=== PATIENT | female | born 1975 | race Caucasian/White ===

== ENCOUNTER 2022-09-20 14:16 | Emergency (ER) | payer OTHER, SELFPAY ==
[2022-09-20] VITALS (9 sets, daily range): BP systolic 141–174; BP diastolic 80–118; PULSE 57–72; RESP 16–18; TEMP 36.6–37; O2SAT 96–100; BMI 25.8
--- NOTE | 2022-09-20 15:31 | EXP.UTC ---
Discharge Plan Disposition Patient Disposition: Still a Patient Condition: Fair Referrals Follow up/Referrals: Taco Miranda [Primary Care Provider] - See instructions Discharge ED Provider: Roxanne Ruth [facility] [place] HPI General Stated complaint: LT side back pain radiating to hip Mode of Arrival: Ambulatory Source of Information: Patient Limitations: No Limitations Time Seen by Provider: 09/20/22 15:31 Description of Symptoms (Recalled from Triage Doc. by RN): pt c/o lower L back pain that radiates to her L flank and hip. ongoing x2d. pt denies injury and any urinary s/sx HEENT Symptoms (Recalled from RN notes): No Resp Symptoms (Recalled from RN notes): No Skin Symptoms (Recalled from RN notes): No MS Symptoms (Recalled from RN notes): Yes Functional Status (Recalled from RN notes): wnl History of Present Illness Provider Complaint: Patient states that she has been having pain in her left lower back that radiates around her side just above hip area for the last couple of days States that she has been unable to get comfortable and it has been keeping her up at night States she took a Baclofen she had left over thinking it may help but it didnt States that she hasnt done anything that she is aware of and denies injury or urinary symptoms States that pain is a 6-10 right now States that pain initially would come and go and when it was at its worse it would make her feel nauseous, States that when today it was still hurting and uncomfortable she came in to get it checked Related Data Allergies Allergy/AdvReac Type Severity Reaction Status Date / Time No Known Allergies Allergy Verified 09/20/22 14:57 Worker's Comp Is this a Worker's Comp case?: No [facility] Disclaimer: The information contained in this section may have been updated after the patient was seen, as this information can be updated by other users. Social History Smoking Status: Never smoker alcohol intake: never current occupational status: employed Travel in the last 8 weeks: None ROS Obtained: Yes All systems reviewed & no additional complaints except as documented and Yes Systems reviewed as appropriate & no additional complaints except as documented Constitutional Constitutional: Reports system reviewed and no additional complaints, except as documented, Reports as per HPI, Denies body ache, Denies chills and Denies fever(s) ENT Ears, Nose, Mouth, and Throat: Reports system reviewed and no additional complaints, except as documented and Reports as per HPI Cardiovascular Cardiovascular: Reports system reviewed and no additional complaints, except as documented and Reports as per HPI Respiratory Respiratory: Reports system reviewed and no additional complaints, except as documented and Reports as per HPI Gastrointestinal Gastrointestingal: Reports system reviewed and no additional complaints, except as documented and as per HPI; Denies abdominal pain, cramping, nausea or vomiting Genitourinary Female Genitourinary: Reports system reviewed and no additional complaints, except as documented, Reports as per HPI, Denies dysuria, Reports flank pain, Denies urinary frequency and Denies urinary urgency Musculoskeletal Musculoskeletal: Reports system reviewed and no additional complaints, except as documented, Reports as per HPI and Reports back pain (pain in left flank area that radiates around to left side) Physical Exam General General appearance: alert and in no apparent distress ENT ENT exam: Present mucous membranes moist Respiratory Respiratory exam: Present normal lung sounds bilaterally; Absent respiratory distress or wheezes Cardiovascular Cardiovascular exam: Present regular rate, normal rhythm and normal heart sounds Abdominal Exam Abdominal exam: Present soft and normal bowel sounds; Absent distention or tenderness Back Exam Back exam: Present tenderness and sciatic notch tenderness (L) (slight discomfort ) Back 1 view image: 1. reports pain in left sandra
[2022-09-20 15:38] LABS: Apearance,Urine Slightly Cloudy (Clear); Color,Urine Dark Yellow (Yellow)
[2022-09-20 15:39] LABS: Specific Gravity, Urine >= 1.030 (1.005-1.030)
[2022-09-20 15:40] LABS: Bilirubin,Urine Negative (Negative); Blood, Urine 2+ (Negative); Glucose,Urine (UA) Negative (Negative); Ketones,Urine Negative (Negative); Protein,Urine 1+ (Negative)
[2022-09-20 15:41] LABS: UTC Leukocyte Esterase,Urine Negative (Negative); UTC Nitrate,Urine Negative (Negative); Urobilinogen,Urine 0.2 EU/dl (0.2)
--- NOTE | 2022-09-20 15:51 | CT_ITS ---
PROCEDURE INFORMATION: Exam: CT Abdomen And Pelvis Without Contrast Exam date and time: 09/20/2022 5:01 PM Age: 46 years old Clinical indication: Abdominal pain; Flank; Left; Additional info: Kidney stone protocol TECHNIQUE: Imaging protocol: Computed tomography of the abdomen and pelvis without contrast. Radiation optimization: All CT scans at this facility use at least one of these dose optimization techniques: automated exposure control; mA and/or kV adjustment per patient size (includes targeted exams where dose is matched to clinical indication); or iterative reconstruction. REPORTING DATA: Count of CT and Cardiac NM exams in prior 12 months: This patient has received 0 known CTs and 0 known cardiac nuclear medicine studies in the 12 months prior to the current study. COMPARISON: No relevant prior studies available. FINDINGS: Lungs: Lung bases are clear. Liver: Fatty liver changes. Gallbladder and bile ducts: Gallbladder has been removed. No evident bile duct dilatation. Pancreas: Normal. No ductal dilation. Spleen: Normal. No splenomegaly. Adrenal glands: Normal. No mass. Kidneys and ureters: Normal. No hydronephrosis. Stomach and bowel: A few diverticula noted in the sigmoid colon. GI tract structures otherwise unremarkable with no evident wall thickening allowing for incomplete distention. Appendix: Appendix is normal. No evidence of appendicitis. Intraperitoneal space: See Reproductive finding. Vasculature: Unremarkable. No abdominal aortic aneurysm. Lymph nodes: Unremarkable. No enlarged lymph nodes. Urinary bladder: Unremarkable as visualized. Reproductive: Status post hysterectomy. Pelvic viscera otherwise unremarkable with no pelvic mass or free fluid. Bones/joints: Unremarkable. No acute fracture. Soft tissues: Unremarkable. IMPRESSION: No acute abnormalities of the abdomen and pelvis. No obstructing stones or uropathy. Nonemergent findings as above.
[2022-09-20 16:00] LABS: Microscopic, Urine URINE MICROSCOPIC (MICROSCOPIC)
[2022-09-20 16:07] LABS: Appearance,Urine CLEAR (Clear); Blood, Urine 2+ (Negative); Color,Urine YELLOW (Yellow); Glucose,Urine (UA) Negative (Negative); Ketones,Urine TRACE (Negative); Leukocyte Esterase,Urine Negative (Negative); Nitrate,Urine Negative (Negative); Protein,Urine TRACE (Negative); Specific Gravity, Urine >= 1.030 (1.005-1.030); Urobilinogen,Urine 0.2 EU/dl (0.2)
[2022-09-20 16:13] LABS: Bilirubin,Urine Negative (Negative)
[2022-09-20 16:18] LABS: Bacteria,Urine Trace /lpf; Calcium Oxalate Crystals,Urine Trace /lpf; RBC,Urine Occasional #/hpf (0-3); Squamous Epithelial Cell,Urine Occasional #/hpf (0-5); WBC,Urine Occasional #/hpf (0-3)
--- NOTE | 2022-09-20 16:31 | PC.NURSE ---
rounded on pt no complaints at this time,call light at bs
[2022-09-20 16:36] LABS: Basophils % 0.6 % (0.1-2.0); Eosinophils # 0.2 K/mm3 (0.0-0.4); Eosinophils % 2.2 % (0.1-12.0); Hematocrit 41.8 % (37.0-47.0); Hemoglobin 13.9 g/dL (12.2-16.2); Lymphocytes # 1.5 K/mm3 (0.7-4.5); Lymphocytes % 21.1 % (10-50); Mean Corpuscular HGB Conc 33.3 g/dL (31.8-35.4); Mean Corpuscular Hemoglobin 29.3 pg (27.0-31.2); Mean Platelet Volume 7.1 fl (7.4-10.4); Monocytes # 0.3 K/mm3 (0.1-1.0); Monocytes % 3.9 % (1.7-9.3); Neutrophils % 72.1 % (37.0-80.0); Platelet Count 196 K/mm3 (142-424); Red Blood Count 4.75 M/mm3 (4.20-5.40); Red Cell Distribution Width 12.9 % (11.5-17.5); White Blood Count 6.9 K/mm3 (4.8-10.8)
[2022-09-20 16:44] LABS: Chloride 99 mmol/L (98-107); HCG Qualitative, Serum Negative (Negative); Potassium 3.8 mmoL/L (3.5-5.1); Sodium 138 mmol/L (136-145)
[2022-09-20 16:47] LABS: Alanine Aminotransferase 62 U/L (12-78); Albumin Level 4.4 g/dl (3.5-5.0); Albumin/Globulin Ratio 1.5 (1.1-1.8); Alkaline Phosphatase 91 U/L (38-126); Anion Gap 16.8 mEq/L (5-15); Aspartate Amino Transferase 48 U/L (14-36); Bilirubin,Total 0.5 mg/dl (0.2-1.3); Blood Urea Nitrogen 16 mg/dl (7-17); Carbon Dioxide 26 mmol/L (22.0-30.0); Creatinine Clearance Estimated 113 mL/min (50-200); Estimated Glomerular Filt Rate 89 ml/min (>60); GFR (African American) 108 ML/MIN (>60); Glucose 94 mg/dl (74-100); Total Protein,Serum 7.4 g/dl (6.3-8.2)
--- NOTE | 2022-09-20 18:04 | HMH.EDGENADL ---
Discharge Plan Disposition Patient Disposition: Still a Patient Condition: Fair Referrals Follow up/Referrals: Taco Miranda [Primary Care Provider] - See instructions Activity Restrictions/Add. Instructions Additional Instructions/Restrictions: Return for worsening abdominal pain vomiting or any other concerns within the next 8 hours otherwise follow-up with your primary care physician within the next few days Clinical Impressions Clinical Impression: Abdominal pain Discharge ED Provider: Roxanne Ruth Adult HPI General Chief complaint: PAIN Stated complaint: LT side back pain radiating to hip Time Seen by Provider: 09/20/22 15:31 Mode of Arrival: Ambulatory Source of Information: Patient Limitations: No Limitations Description of Symptoms (Recalled from ER Triage Doc. by RN): Pt [facility] d/t left flank pain that started on night. 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 History of Present Illness HPI narrative: 38-year-old female presented with right-sided flank pain since last night came on suddenly dull, radiating to right flank. Positive for nausea no vomiting. Denies fever or urinary symptoms. She was evaluated in urgent care center here had hematuria and sent over. She says the pain has improved. Related Data Allergies Allergy/AdvReac Type Severity Reaction Status Date / Time No Known Allergies Allergy Verified 09/20/22 14:57 [facility] Disclaimer: The information contained in this section may have been updated after the patient was seen, as this information can be updated by other users. Social History (Updated 09/20/22 @ 15:55 by Roxanne Ruth APRN) Smoking Status: Unknown if ever smoked alcohol intake: never current occupational status: employed Travel in the last 8 weeks: None ROS Obtained: Yes All systems reviewed & no additional complaints except as documented Constitutional Constitutional: Denies fatigue Eyes Eyes: Denies dry eyes ENT Ears, Nose, Mouth, and Throat: Denies dry mouth Cardiovascular Cardiovascular: Denies dyspnea Respiratory Respiratory: Denies dyspnea and Denies wheezing Gastrointestinal Gastrointestingal: Denies constipation Genitourinary Female Genitourinary: Denies hot flashes Musculoskeletal Musculoskeletal: Denies arthralgias Integumentary/Breasts Skin/Breast: Denies rash Neurologic Neurologic: Denies convulsions Endocrine Endocrine: Denies fatigue Hematologic/Lymphatic Henatologic/Lymphatic: Denies easy bleeding Allergic/Immunologic Allergic/Immunologic: Denies wheezing Physical Exam General General appearance: alert and in no apparent distress Eye Eye exam: Present PERRL and EOMI ENT ENT exam: Present normal exam and normal oropharynx Neck Neck exam: Present normal inspection Chest Chest inspection: Present symmetric chest wall rise Respiratory Respiratory exam: Present normal lung sounds bilaterally; Absent respiratory distress Cardiovascular Cardiovascular exam: Present regular rate and normal rhythm Abdominal Exam Abdominal exam: Present soft and tenderness (Mild tenderness right flank); Absent distention, guarding, rebound, Luke's sign or tenderness at McBurney's Point Back Exam Back exam: Present normal inspection Neurological Exam Neurological exam: Present alert and oriented X3 Psychiatric Psychiatric exam: Present normal affect and normal mood Skin Skin exam: Present warm, dry and intact Lymphatic Lymphatic Findings: no adenopathy Medical Decision Making Medical Records Medical records reviewed: Yes I reviewed the patient's medical records. Thong Inquiry Pt receiving controlled substance: No Thong was queried for this patient: No Vital Signs: 09/20/22 14:54 09/20/22 16:00 09/20/22 16:20 Temperature 98.6 F Temperature Source Oral Pulse Rate 57 L 59 L Pulse Rate [Left] 67 Respiratory Rate 16 18 18 Blood Pressure 174/117 H 153/104 H Blood Pressure [Right Arm] 143/80 H Blo
== END 2022-09-20 18:39 | disposition home or self-care (01) ==
LOC: UTC 15:36 → ER 15:49
PROVIDERS: Emergency Medicine; Emergency Provider Nurse Practitioner; PCP Internal Medicine
DX: R10.9 Unspecified abdominal pain (principal); M54.9 Dorsalgia, unspecified; R11.0 Nausea
CPT/HCPCS: 74176; 80053; 81001; 81003; 84703; 85025; 96361; 96374; 99284; 99285

== ENCOUNTER 2023-05-03 11:38 | Emergency (ER) | payer SELFPAY ==
[2023-05-03 14:00] VITALS: BP 158/97; PULSE 56; RESP 18; TEMP 36.9; O2SAT 100; BMI 29.1
[2023-05-03 14:06] LABS: Apearance,Urine Clear (Clear); Bilirubin,Urine Negative (Negative); Blood, Urine 1+ (Negative); Color,Urine Yellow (Yellow); Glucose,Urine (UA) Negative (Negative); Ketones,Urine Negative (Negative); Protein,Urine Negative (Negative); Specific Gravity, Urine 1.015 (1.005-1.030); UTC Leukocyte Esterase,Urine Trace (Negative); UTC Nitrate,Urine Negative (Negative); Urobilinogen,Urine 0.2 EU/dl (0.2)
--- NOTE | 2023-05-03 14:23 | EXP.UTC ---
Discharge Plan Disposition Patient Disposition: Home, Self-Care Condition: Good Prescriptions Prescriptions: New cefdinir 300 mg capsule 300 mg PO Q12H Qty: 20 0RF phenazopyridine [Pyridium] 200 mg tablet 200 mg PO TID Qty: 6 0RF Referrals Follow up/Referrals: Shawn Miranda [Primary Care Provider] - See instructions Activity Restrictions/Add. Instructions Additional Instructions/Restrictions: *Increase fluids. Water not Soda or Tea *Start antibiotic immediately and be sure to take as ordered for the FULL length of time although you should start to see improvement over the next 48 hours *Pyridium as needed Remember this medication will turn your urine . This is normal but it will stain what ever it gets on *You should not use Pyridium for more than 48 hours. If so , follow up with your primary physician to review urine culture and ensure that antibiotic is adequate for infection *Be SURE to follow up anytime for new or worsening symptoms with your family doctor. AND in 48 hours for urine culture results with your family doctor, if you do not have a doctor then you may call back to the [facility] for urine culture results and further treatment. We do recommend that you choose and establish care with a Primary Care Physician. ?AND follow up with them ?in 10-14 days to repeat UA to ensure infection is resolved and blood no longer present *Be sure to let your PCP know that we sent urine cultures from the [facility] so they can follow up to ensure that you area the on the correct antibiotic Call your doctor office and make appointment for 48 hours (2 days from today) ?to follow up and get the results of your urine culture and further treatment Clinical Impressions Clinical Impression: UTI (urinary tract infection) Qualifiers: Urinary tract infection type: site unspecified Hematuria presence: with hematuria Qualified Code(s): N39.0 - Urinary tract infection, site not specified; R31.9 - Hematuria, unspecified Instructions Patient Instructions: DI for Urinary Tract Infection (UTI), Urinary Tract Infection Discharge ED Provider: Roxanne Ruth [facility] HPI General Stated complaint: urine pain Mode of Arrival: Ambulatory Source of Information: Patient Limitations: No Limitations Time Seen by Provider: 05/03/23 14:23 Description of Symptoms (Recalled from Triage Doc. by RN): Pt had urinary pain when she pees, nausea, and BAKER. She stated that 2 weeks ago she was on bactrim and still having issues. HEENT Symptoms (Recalled from RN notes): Yes Resp Symptoms (Recalled from RN notes): No Skin Symptoms (Recalled from RN notes): No MS Symptoms (Recalled from RN notes): No Functional Status (Recalled from RN notes): n/a History of Present Illness Provider Complaint: Patient states that she has been having burning with urination that started 2 weeks ago and initially had low back pain with it and nausea States that she did a telehealth visit and they started her on Bactrim States that it got better while she was on it but then the burning with urination returned so today she came back in to get urine rechecked Denies fever denies chills denies abdominal pain Related Data Previous Rx's Medication Instructions Recorded cefdinir 300 mg capsule 300 mg PO Q12H #20 caps 05/03/23 phenazopyridine 200 mg tablet 200 mg PO TID 6 doses #6 tabs 05/03/23 (Pyridium) Allergies Allergy/AdvReac Type Severity Reaction Status Date / Time No Known Allergies Allergy Verified 05/03/23 14:17 Worker's Comp Is this a Worker's Comp case?: No [facility] Disclaimer: The information contained in this section may have been updated after the patient was seen, as this information can be updated by other users. Social History Smoking Status: Unknown if ever smoked alcohol intake: never current occupational status: employed Travel in the last 8 weeks: None ROS Obtained: Yes All systems review
[2023-05-03 14:42] VITALS: BP 158/97; PULSE 56; RESP 18; TEMP 36.9; O2SAT 100
== END 2023-05-03 14:42 | disposition home or self-care (01) ==
PROVIDERS: Emergency Provider Nurse Practitioner; PCP Pediatrics
DX: N39.0 Urinary tract infection, site not specified (principal); B96.89 Other specified bacterial agents as the cause of diseases classified elsewhere; R31.9 Hematuria, unspecified; R51.9 Headache, unspecified; R11.0 Nausea; M54.59 Other low back pain
CPT/HCPCS: 81003; 87086; 99204; 99212; G0463

== ENCOUNTER 2023-06-24 20:05 | Outpatient (CLI) | payer BC, SELFPAY ==
[2023-06-24 17:21] LABS: Basophils % 0.8 % (0.1-2.0); Eosinophils # 0.1 K/mm3 (0.0-0.4); Eosinophils % 2.3 % (0.1-12.0); Hematocrit 45.7 % (37.0-47.0); Hemoglobin 15.6 g/dL (12.2-16.2); Lymphocytes # 1.5 K/mm3 (0.7-4.5); Lymphocytes % 25.9 % (10-50); Mean Corpuscular HGB Conc 34.2 g/dL (31.8-35.4); Mean Corpuscular Hemoglobin 31.2 pg (27.0-31.2); Mean Corpuscular Volume 91.3 fl (81-99); Mean Platelet Volume 8.3 fl (7.4-10.4); Monocytes # 0.3 K/mm3 (0.1-1.0); Monocytes % 5.1 % (1.7-9.3); Neutrophils # 3.7 K/mm3 (1.8-7.8); Neutrophils % 65.9 % (37.0-80.0); Platelet Count 215 K/mm3 (142-424); Red Blood Count 5.01 M/mm3 (4.20-5.40); Red Cell Distribution Width 13.1 % (11.5-17.5); White Blood Count 5.6 K/mm3 (4.8-10.8)
[2023-06-24 17:46] LABS: Alanine Aminotransferase 145 U/L (12-78); Albumin Level 4.7 g/dl (3.5-5.0); Albumin/Globulin Ratio 1.7 (1.1-1.8); Alkaline Phosphatase 95 U/L (38-126); Anion Gap 4.6 mEq/L (5-15); Aspartate Amino Transferase 102 U/L (14-36); Blood Urea Nitrogen 13 mg/dl (7-17); Calcium 9.8 mg/dl (8.4-10.2); Carbon Dioxide 27 mmol/L (22.0-30.0); Chloride 105 mmol/L (98-107); Chol/HDL Ratio 5.1 (1-3.5); Cholesterol 221 mg/dl (140-200); Estimated Glomerular Filt Rate 76 ml/min (>60); GFR (African American) 92 ML/MIN (>60); Globulin 2.7 g/dL (1.3-3.2); Glucose 88 mg/dl (74-100); HDL Cholesterol 43 mg/dl (40-60); Potassium 4.6 mmoL/L (3.5-5.1); Sodium 132 mmol/L (136-145); Total Protein,Serum 7.4 g/dl (6.3-8.2); Triglycerides 101 mg/dl (30-150); VLDL Cholesterol 20 mg/dL (0-40)
[2023-06-24 17:58] LABS: C-Reactive Protein 3.3 mg/L (0-4); Direct LDL Cholesterol 124.13 mg/dL (100-129)
[2023-06-24 18:01] LABS: Hemoglobin A1C 4.8 % (4.0-6.0)
[2023-06-24 18:03] LABS: Free T4 (Free Thyroxine) 0.97 ng/dl (0.78-2.19); T4 (Thyroxine) 9.6 ug/dl (5.53-11.0); Triiodothryronine (T3) Uptake 31 % (23.5-40.5)
[2023-06-24 18:05] LABS: 25-OH Vitamin D, Total 27.2 ng/mL (30-100)
[2023-06-24 18:16] LABS: Thyroid Stimulating Hormone 1.81 uIU/mL (0.465-4.68)
[2023-06-24 18:36] LABS: Vitamin B12 294 pg/mL (239-931)
== END 2023-06-24 23:59 ==
LOC: LAB.DROPOF 20:05
PROVIDERS: PCP Nurse Practitioner Family; Visit Provider Nurse Practitioner Family
DX: R53.83 Other fatigue (principal); E55.9 Vitamin D deficiency, unspecified; Z79.899 Other long term (current) drug therapy
CPT/HCPCS: 80053; 80061; 82306; 82607; 83036; 84436; 84439; 84443; 84479; 85025; 86140

== ENCOUNTER 2023-07-01 15:24 | Outpatient (CLI) | payer BC, SELFPAY ==
--- NOTE | 2023-07-01 15:25 | MM_ITS ---
PROCEDURE INFORMATION: Exam: MG Bilateral Screening 3D Mammography Exam date and time: 07/01/2023 3:36 PM Age: 47 years old Clinical indication: Screening examination TECHNIQUE: Imaging protocol: Bilateral Screening tomosynthesis and 2D mammography including computer-aided detection (CAD) when performed. COMPARISON: No relevant prior studies available. FINDINGS: MAMMOGRAPHY: Breast composition: The breasts are almost entirely fatty. Mass: Questionable 0.9 cm mass in the anterior left approximate 9 o'clock axis Architectural distortion: None. Calcifications: No suspicious calcifications. Asymmetric density: None. Skin thickening: None. Axillary adenopathy: None. IMPRESSION: Patient to be recalled for spot compression views of the left breast in the CC and MLO projections, a full 90 degree lateral view, and left breast ultrasound for further evaluation of a left breast mass. ASSESSMENT: BI-RADS Category 0: Incomplete- Need Additional Imaging Evaluation and/or Prior Mammograms for Comparison
[2023-07-01 17:23] LABS: Alanine Aminotransferase 109 U/L (12-78); Albumin Level 5.2 g/dl (3.5-5.0); Albumin/Globulin Ratio 1.9 (1.1-1.8); Alkaline Phosphatase 85 U/L (38-126); Anion Gap 12.3 mEq/L (5-15); Aspartate Amino Transferase 67 U/L (14-36); Bilirubin,Total 0.8 mg/dl (0.2-1.3); Blood Urea Nitrogen 13 mg/dl (7-17); Calcium 10.2 mg/dl (8.4-10.2); Carbon Dioxide 27 mmol/L (22.0-30.0); Chloride 106 mmol/L (98-107); Estimated Glomerular Filt Rate 89 ml/min (>60); GFR (African American) 108 ML/MIN (>60); Globulin 2.8 g/dL (1.3-3.2); Glucose 95 mg/dl (74-100); Potassium 4.3 mmoL/L (3.5-5.1); Sodium 141 mmol/L (136-145)
[2023-07-02 09:32] LABS: HBsAg Screen Negative (Negative); HCV Ab Non Reactive (Non Reactive); Hep A Ab, IGM Negative (Negative); Hep B Core Ab, IgM Negative (Negative)
== END 2023-07-01 23:59 ==
PROVIDERS: PCP Nurse Practitioner Family; Visit Provider Nurse Practitioner Family
DX: Z12.31 Encounter for screening mammogram for malignant neoplasm of breast (principal); R89.9 Unspecified abnormal finding in specimens from other organs, systems and tissues; R74.8 Abnormal levels of other serum enzymes
CPT/HCPCS: 36415; 77063; 77067; 80053; 80074

== ENCOUNTER 2023-07-15 13:43 | Outpatient (CLI) | payer OTHER, SELFPAY ==
--- NOTE | 2023-07-15 13:49 | MM_ITS ---
PROCEDURE INFORMATION: Exam: US Left Breast, Complete MG Left Diagnostic Breast Tomosynthesis Exam date and time: 07/15/2023 2:59 PM Age: 47 years old Clinical indication: Patient recalled on the basis of a screening mammogram for further evaluation; Left breast; mass TECHNIQUE: Imaging protocol: Complete ultrasound of all four quadrants of the left breast and the retroareolar regions, including ultrasound of the axilla when performed. Left Diagnostic tomosynthesis and 2D mammography including computer-aided detection (CAD) when performed. Unilateral or bilateral exam. COMPARISON: MG MM DIG MAMM DX UNILAT LT CAD 07/15/2023 2:03 PM FINDINGS: MAMMOGRAPHY: Digital diagnostic spot compression views of the left approximate 9 o'clock axis demonstrates a persistent 0.5 cm ovoid mass. ULTRASOUND: Sonographic images of the left breast including the retroareolar region, all 4 quadrants and the axilla do not demonstrate any solid masses. 1 cm cyst in the 9 o'clock axis 2 cm from the nipple most closely corresponds to the mass on mammography. No architectural distortion or acoustical shadowing. No skin thickening or axillary adenopathy. IMPRESSION: Mass on screening mammography corresponds to underlying cystic change sonographically. There is no mammographic evidence of malignancy.Annual bilateral mammographic screening is recommended unless otherwise clinically indicated. ASSESSMENT: BI-RADS Category 2: Benign
== END 2023-07-15 23:59 ==
LOC: RAD 13:46
PROVIDERS: PCP Nurse Practitioner Family; Visit Provider Nurse Practitioner Family
DX: R92.8 Other abnormal and inconclusive findings on diagnostic imaging of breast (principal); N63.21 Unspecified lump in the left breast, upper outer quadrant
CPT/HCPCS: 76641; 77061; 77065; G0279

== ENCOUNTER 2023-08-28 07:45 | Day surgery (SDC) | payer OTHER, SELFPAY ==
[2023-08-28 08:02] VITALS: BP 132/81; PULSE 64; RESP 16; TEMP 36.6; O2SAT 96; BMI 28.8
[2023-08-28] MEDS: LACTATED RINGERS 1000ML 1,000 ML 100 ML IV (08:06)
--- NOTE | 2023-08-28 08:16 | EXP.ANES.CKL ---
[facility] Disclaimer: The information contained in this section may have been updated after the patient was seen, as this information can be updated by other users. Medical History UTI (urinary tract infection) Abdominal pain Surgical History History of cholecystectomy History of hysterectomy Family History Grandmother Cancer Coronary artery disease Heart attack Hyperlipidemia Social History Smoking Status: Never smoker alcohol intake: never substance use type: denies use current occupational status: employed Travel in the last 8 weeks: Inside the [place] household members: significant other housing: house [facility] Anesthesia Checklist Patient Identification Patient Identification: Arm Band and Verbal (Name & ) Structural Data Admitted From: Home Planned Operative Procedure/s: Colonoscopy Consent for Planned Operative Procedure(s) Verified: Yes Verified Documents: Surgical Consent and History and Physical NPO Status Verified Time NPO: 00:00 Chart Verification Results Verified: CBC and BMP Additional verifications Patient : No Anesthesia Reactions: No Cardiovascular Assessment Heart Sounds: S1 & S2 Pulse Rhythm: Irregular Peripheral Edema: No Airway Assessment Mallampati Score:: Class II C-Spine Mobility Assessed: Yes (FROM) TMJ Mobility Assessed: Yes Dentition: Good Dentition (Nothing loose per pt.) Neurological Assessment Level of Consciousness: Awake, Alert, Appropriate and Follows Commands Hx Seizures: No Numbness or tingling in extremities: No Anesthesia Plan Anesthesia Risk discussed: Yes Anesthesia Plan: Verified ASA Class: II Anesthesia Type: MAC
[2023-08-28 08:51] VITALS: O2SAT 96
--- NOTE | 2023-08-28 09:14 | P.PCN_ITS ---
Procedure: Date: 08/28/23 Patient Date of :: 1975 Procedure Performed:: Colonoscopy Indications:: Patient is a 47-year-old who presents for screening colonoscopy. This is the patient's first colonoscopy Performing Provider:: Arsenio Crowley MD Referring Provider:: Khang Martini APRN Sedation:: See RN records Procedure:: After placing the patient in the left lateral decubitus position, the col onoscopy was gently inserted into the rectum and under direct visualization advanced to the cecum which was identified by transillumination in the right lower quadrant, identification of the ileocecal valve, appendiceal orifice, and cecal strap. Color, texture, mucosa, and anatomy of the colon were carefully examined with the scope. Findings:: The quality of the bowel preparation was good. There was a focal area of erythema in the descending colon. Biopsies were obtained with a cold forceps for histology. The remaining colon appeared normal. On retroflexion view of the rectum internal hemorrhoids were seen. Recommendations:: Await pathology results Repeat colonoscopy in 10 years for screening purposes, sooner if clinically indicated Complications:: None Estimated blood obtained (mL): 0 Colonoscopy Component Colonoscopy Component Was a colonoscopy performed during today's procedure?: Yes Recommended follow up colonoscopy of at least 10 years?: Yes
[2023-08-28 09:16] VITALS: BP 130/85; PULSE 80; RESP 14; TEMP 36.2; O2SAT 97
[2023-08-28 09:26] VITALS: BP 136/88; PULSE 83; RESP 16; O2SAT 98
[2023-08-28 09:36] VITALS: BP 150/83; PULSE 81; RESP 16; O2SAT 98
[2023-08-28 09:54] VITALS: BP 153/87; PULSE 88; RESP 16; TEMP 36.1; O2SAT 98
== END 2023-08-28 09:54 | disposition home or self-care (01) ==
PROVIDERS: PCP Nurse Practitioner Family; Visit Provider Internal Medicine
PROC: (CPT 45380; principal; 2023-08-28 09:00)
DX: Z12.11 Encounter for screening for malignant neoplasm of colon (principal); K64.8 Other hemorrhoids
CPT/HCPCS: 45380

== ENCOUNTER 2023-09-24 10:28 | Outpatient (CLI) | payer OTHER, SELFPAY ==
[2023-09-24 17:34] LABS: Alanine Aminotransferase 77 U/L (12-78); Albumin Level 4.4 g/dl (3.5-5.0); Albumin/Globulin Ratio 1.6 (1.1-1.8); Alkaline Phosphatase 97 U/L (38-126); Anion Gap 16.1 mEq/L (5-15); Aspartate Amino Transferase 51 U/L (14-36); Bilirubin,Total 0.8 mg/dl (0.2-1.3); Blood Urea Nitrogen 15 mg/dl (7-17); Calcium 9.6 mg/dl (8.4-10.2); Carbon Dioxide 26 mmol/L (22.0-30.0); Chloride 103 mmol/L (98-107); Chol/HDL Ratio 4.2 (1-3.5); Cholesterol 220 mg/dl (140-200); Estimated Glomerular Filt Rate 89 ml/min (>60); GFR (African American) 108 ML/MIN (>60); Globulin 2.7 g/dL (1.3-3.2); Glucose 95 mg/dl (74-100); HDL Cholesterol 53 mg/dl (40-60); Potassium 4.1 mmoL/L (3.5-5.1); Sodium 141 mmol/L (136-145); Total Protein,Serum 7.1 g/dl (6.3-8.2); Triglycerides 162 mg/dl (30-150); VLDL Cholesterol 32 mg/dL (0-40)
[2023-09-24 17:45] LABS: Direct LDL Cholesterol 120.51 mg/dL (100-129)
[2023-09-24 17:51] LABS: 25-OH Vitamin D, Total 24.6 ng/mL (30-100)
== END 2023-09-24 23:59 | disposition home or self-care (01) ==
LOC: LAB.DROPOF 09-25 10:28
PROVIDERS: PCP Nurse Practitioner Family; Visit Provider Nurse Practitioner Family
DX: E55.9 Vitamin D deficiency, unspecified (principal); E78.00 Pure hypercholesterolemia, unspecified; R74.8 Abnormal levels of other serum enzymes; Z68.27 Body mass index [BMI] 27.0-27.9, adult
CPT/HCPCS: 80053; 80061; 82306

== ENCOUNTER 2023-09-25 15:53 | Outpatient (CLI) | payer OTHER, SELFPAY ==
--- NOTE | 2023-09-25 15:57 | XR_ITS ---
FINAL REPORT CLINICAL HISTORY: Right heel pain FINDINGS: Right ankle Three views were obtained. There is no acute fracture or dislocation. The joint spaces appear normal. There is small calcification in the region of the distal Achilles tendon. IMPRESSION: No acute process. Reviewed, Interpreted and Dictated by Jv Duncan III, MD Transcribed by Flavia Benavidez Authenticated and [facility]
--- NOTE | 2023-09-25 15:57 | XR_ITS ---
FINAL REPORT CLINICAL HISTORY: right heel pain FINDINGS: Right foot Three views were obtained. There is no acute fracture or dislocation. The joint spaces appear normal. No soft tissue abnormality is identified. IMPRESSION: No acute process. Reviewed, Interpreted and Dictated by Jv Duncan III, MD Transcribed by Flavia Benavidez Authenticated and [facility]
--- NOTE | 2023-09-25 15:57 | XR_ITS ---
FINAL REPORT CLINICAL HISTORY: low back pain, curved spine FINDINGS: SPINE THORACOLUMBAR STANDING (SCOLIOSIS) There is 12 degrees dextroscoliosis centered on T8. There is 11 degrees levoscoliosis centered on L1. Mild degenerative changes are present. There is no vertebral anomaly. IMPRESSION: Scoliosis as above. Reviewed, Interpreted and Dictated by Jv Duncan III, MD Transcribed by Flavia Benavidez Authenticated and [facility]
== END 2023-09-25 23:59 | disposition home or self-care (01) ==
LOC: RAD 15:57
PROVIDERS: PCP Nurse Practitioner Family; Visit Provider Nurse Practitioner Family
DX: M79.671 Pain in right foot (principal); M54.50 Low back pain, unspecified
CPT/HCPCS: 72081; 73610; 73630

== ENCOUNTER 2023-11-25 15:00 | Outpatient (RCR) | payer OTHER, SELFPAY ==
--- NOTE | 2023-10-03 11:39 | HMH.PTOPEV ---
PT Outpatient Evaluation Rehab PT Outpatient Evaluation Start: 10/03/23 10:00 Freq: Status: Active Protocol: Document 10/03/23 10:00 PDESEROUX (Rec: 10/03/23 11:39 PDESEROUX [id number]) E-signed By Abilio Magdaleno, PT Outpatient Therapy Subjective History Subjective History Pt. is a 47 year old female who presents to [facility] Outpatient Physical Therapy Services in [place] for the initial evaluation this date( 10/03/23) w/ c/o subacute on chronic and constant R-sided lumbar P!, stiffness, and muscle spasms of insidious onset that has progressively been getting worse in the last 3-4 months. Pt. reports she was initially diagnosed w/ DDD 20 years ago when c/o LBP! originated and had been dealing with it, however, symptoms have progressively worsened in the last 3-4 months of insidious onset. Pt. denies numbness/tingling radiating into neither extremity, denies bowel/ bladder dysfunction nor saddle paresthesia at this time. Pt. reports symptoms will worsen w/ standing back up from a bent over position, prolonged standing and ambulation, and lifting objects. Pt. reports P ! will increase to a 5-6/10 w/ ambulation, but get to a 9/10 when she stands back up from a seated position. Pt. reports having some symptom relief w/ ice and resting. 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 Recent diagnostic imaging(radiograph) indicates a 12 degree scoliosis curvature in the T- spine and a 11 degree scoliosis curvature in the L- spine per pt. report. Pt. denies having any injections for current complaint, denies having any restrictions per MD at this time. Current medications include Celebrex and Zanaflex. PMH includes Psoriasis, Hysterectomy, and a Cholecystectomy. Pt. also c/o subacute and constant RLE heel P!, stiffness, and edema of insidious onset for the last 3 -4 months. Pt. denies history of trauma as origination of heel P!. Pt. reports the RLE heel P! is worsening the R- sided lumbar P! secondary to gait abnormalaties. Recent diagnostic imaging(radiograph) indicates small calcification adjacent to achilles tendon per pt. report . Pt. denies injection nor restrictions for current complaint. Pt. reports symptoms will worsen w/ walking, standing, and work- related activities. Pt. reports symptoms will worsen as those activities become prolonged. Pt. denies having any work restrictions at this time, states having this week off from work that has helped w/ some symptom relief. Pt. RTMD in November. New diagnosis of cancer in past 12 No months? Chief Complaint Pain,Spasms,Stiff,Swelling, Gives out/Unstable,Weakness Symptom Type Ache,Throb,Sharp,Dull,Stabbing Symptoms Relieved By Rest/Positioning,Ice,Brace/ Support Symptoms Aggravated By Sitting,Standing,Bending/ Stooping,Physical Activity, Twisting,Walking,Lifting Prior Functional Limitations None Current Functional Limitations Lifting,Housework,Driving, Standing,Sitting,Recreation Activity,Walking,Stairs, Balance,Bending/Stooping Symptom Description Constant but Variable,Activity Dependent Level of pain today (0-10) 4 Pain scale - at its best (0-10) 3 Pain scale - at its worst (0-10) 10 Lumbopelvic Eval Posture Thoracic Spine Posture Standing Position Fixed Scoliosis on (R) Lumbar Spine Posture Standing Position Fixed Scoliosis on (L) Assistive device Assistive Devices None / NA Gait Observation General Gait Pattern Observation Antalgic Gait,Decrease Weight Bear (R),Decrease Stride Lngth (L) Palapation tenderness right thoracic spinal tenderness Yes: T8-T12 lumbar spinal tenderness Yes: L3-L5 paraspinal tenderness Yes: R-sided adjacent LSPS to lumbar spinal TTP above Lumbar/Sacral Palpation Findings Tenderness Lumbar/Sacral Palpation Overall Comment grade 3-4 +TTP to assessment above Accessory Movement T-spine Vertebrae Accessory Movements Central P/A [place],Right P/A that Elicit Symptoms [place] T10 right T11 right T12 right L-spine Vertebrae Accessory Movements Central P/A [place],Right P/A that Elicit Symptoms [place] L3 right L4 right L5 right Range of Motion Lumbar Spine Active Flexion Range of 65 Motion (degrees) Lumbar Spine Active Extension Range of 18 Motion (degrees) Left Lumbar Spine Lateral Flexion Active 13 Range of Motion (degrees) Right Lumbar Spine Lateral Flexion 6 Active Range of Motion (degrees) Lumbar Spine ROM Limitations Soft Tissue Tightness,Pain Manual Muscle Test Right Knee Extension Strength Grade 4 Good Knee Flexion Strength Grade 4- Good- Hip Flexion Strength Grade 4- Good- Hip Abduction Strength Grade 4- Good- Hip Adduction Strength Grade 4- Good- Hip External Rotation Strength Grade 4- Good- Hip Internal Rotation Strength Grade 4- Good- Hip Extension Strength Grade 4- Good- Gluteus Nathan Strength Grade 4- Good- Extensor Hallucis Longus Strength Grade 4 Good Ankle Dorsiflexion Strength Grade 4- Good- Gastronemius/Soleus Strength Grade 4- Good- DTR Rt Patellar 2+ Lt Patellar 2+ Rt Gastroc/Soleus 2+ Lt Gastroc/Soleus 2+ Altered Sensation Bilateral Comment light touch discrimination vocalized symmetrical in BLEs grossly Special Tests Lumbar Spine Screen Positive Hip Piriformis Test Negative Right Sciatic Nerve Tension Test Negative Right Lumbar Long [place] Distraction Test/Manual Positive Traction Ankle/Foot Eval Assistive Device Ambulation Assistive Device None Palpation Tenderness right Ankle/Foot Palpation Findings Tenderness Ankle/Foot Palpation Overall Comment grade 3-4 +TTP to achilles insertion, posterior/inferior calcaneus ATF TTP negative PTF TTP negative CF TTP negative Deltoid ligament TTP negative ROM Ankle/Foot Dorsiflexion w/Knee Extended +1 Active Range Motion (degrees) Ankle/Foot Dorsiflexion w/Knee Extended -18 Passive Range (degrees) Ankle/Foot Plantar Flexion Active Range WNL of Motion (degrees) Ankle/Foot Eversion Active Range of WNL Motion (degrees) Ankle/Foot Inversion Active Range of WNL Motion (degrees) Ankle/Foot ROM Limitations Soft Tissue Tightness,Muscle Tone,Pain Accessory Movements Ankle Accessory Movements that Elicit Calcaneocuboid [place] Symptoms MMT right Ankle Dorsiflexion Strength Grade 4 Good Ankle Plantarflexion Strength Grade 4 Good Foot Eversion Strength Grade 4 Good Foot Inversion Strength Grade 4 Good Ankle Dorsiflexors Muscle Tone Severe Hypertonicity Description Special Tests Ankle Anterior Drawer Test Negative Right Ankle Posterior Drawer Test Negative Right Neuro tests Achilles Tendon (R) 2+ Achilles Tendon (L) 2+ normal sensation to monofilament Yes Outpatient Therapy Assessment Impairments Problems/Impairmments Palpation Tenderness,Impaired Range of Motion,Impaired Strength,Impaired Transfers, Impaired Gait Pattern,Impaired Walking,Impaired Standing, Impaired Sitting,Impaired Lifting,Impaired Stair Climbing,Impaired Incline Stepping,Impaired Stepping on Uneven Surface,Impaired Squatting,Impaired Bending, Impaired Recreational Activities,Impaired Work Activities,Increased Edema, Subjective C/O Pain,Impaired Self Care/Self Management Prognosis Rehab Potential Good Comment w/ HEP compliancy Clinical Impression Consistent with Diagnosis Yes Consistent with scoliosis, RLE ankle calcification Short Term Goals Number of Weeks 2 Decreased Palpation Tenderness Yes: grade 1-2 +TTP to TTP assessment above Decrease Subjective C/O Pain Yes: worse:09/26 Patient to be Ind w/ HEP Yes Half-Way Goals Number of Weeks 4-6 Decreased Palpation Tenderness Yes: grade 1 +TTP to TTP assessment above Increase Range of Motion Yes: RLE ankle DF A/PROM WNL, L-spine A/PROM WNL grossly Increase Strength Yes: 4+ to 5/5 RLE MMT scores grossly Improve Gait Pattern without Assistive Yes Device Increase Ability to Walk Yes Increase Ability to Stand Yes: Pt. will be able to stand up from a flexed position w/o difficulty Increase Ability to Drive/Ride in Car Yes: Pt. will be able to sit and drive to work w/o difficulty Improve Ability to Bend Yes Improve Tolerance to Work Activities Yes Improve Oswestry Score Yes Improve LEFI Score Yes Decrease Subjective C/O Pain Yes: worse:-07/27 Patient to be Ind w/ Advanced HEP Yes Outpatient Therapy Plan of Care Treatment Plan May Include Therapeutic Exercise Including Home Yes Exercise Program Manual Therapy Techniques Yes Neuromuscular Re-education Yes Therapeutic Activities to Return to Yes Previous Functional/Work Level Gait Training Yes ADL/Self Care Education Yes Mechanical Traction Yes Dry Needling Yes Thermal Modalities Yes Electrical Stimulation Yes Ultrasound/Phonophoresis Yes Iontophoresis Yes Vasopneumatic Compression Pump Yes Massage Yes Eval/Re-Eval Yes Frequency Times per week 2 Duration Number of Weeks 4-6 Addendums This patient is a candidate for social No or vocational rehab? Patient/Guardian verbally acknowledges Yes understanding of treatment program and consents to further treatment? Patient/Guardian verbally acknowledges Yes understanding of diagnosis, prognosis and goals for treatment? Eval Complexity PT Charges 52784 - Moderate Complexity Shoulder/Elbow Eval Shoulder Objective Measurements Elbow Objective Measurements PHYSICIAN CERTIFICATION: I certify the specified therapy services for Sandee Flowers are required, authorized, and reviewed every 30 days.
== END 2023-12-09 10:14 | disposition home or self-care (01) ==
LOC: PT 15:00
PROVIDERS: Visit Provider Nurse Practitioner Family
DX: M61.471 Other calcification of muscle, right ankle and foot (principal); M41.9 Scoliosis, unspecified
CPT/HCPCS: 20560; 97010; 97014; 97035; 97110; 97140; 97163; 97164; G0283

== ENCOUNTER 2024-01-17 13:24 | Outpatient (CLI) | payer OTHER, SELFPAY ==
--- NOTE | 2024-01-17 13:30 | MR_ITS ---
FINAL REPORT CLINICAL HISTORY: Sciatica, lbp COMPARISON: None FINDINGS: Multiplanar MR imaging of the lumbar spine was performed without and with contrast. On the sagittal T2-weighted images, abnormal decreased signal is seen at the L3-4 through L5-S1 disc levels. The vertebral alignment is normal. There is no evidence of fracture. L1-2: No significant canal stenosis or neuroforaminal narrowing is seen. L2-3: No significant canal stenosis or neuroforaminal narrowing is seen. L3-4: Mild posterolateral disc protrusion. [id number] left neural foraminal narrowing. L4-5: Mild diffuse disc bulge. Broad-based midline disc protrusion. Mild annular tear in the midline. Mild spinal canal compromise. L5-S1: Mild diffuse disc bulge. Endplate hypertrophy. No abnormal contrast enhancement is identified. IMPRESSION: Midline disc protrusion at L4-5. Reviewed, Interpreted and Dictated by Olman Lyon MD Transcribed by Alexsandra Araujo Authenticated and [facility]
[2024-01-17] MEDS: SODIUM CHLORIDE 0.9% 10ML SYR (RAD ONLY) 10 ML IV (14:17)
[2024-01-17] MEDS: GADOTERIDOL INJ 20ML SYRINGE 14 ML IV (14:17)
== END 2024-01-17 23:59 | disposition home or self-care (01) ==
LOC: RAD 13:25
PROVIDERS: PCP Nurse Practitioner Family; Visit Provider Nurse Practitioner Family
DX: M54.50 Low back pain, unspecified (principal)
CPT/HCPCS: 72158; A9576

== ENCOUNTER 2024-01-29 09:26 | Outpatient (CLI) | payer OTHER, SELFPAY ==
[2024-01-29 16:26] LABS: Basophils # 0.1 K/mm3 (0-0.2); Basophils % 1.1 % (0.1-2.0); Eosinophils # 0.1 K/mm3 (0.0-0.4); Eosinophils % 2.5 % (0.1-12.0); Hematocrit 43.7 % (37.0-47.0); Hemoglobin 14.1 g/dL (12.2-16.2); Lymphocytes # 1.3 K/mm3 (0.7-4.5); Lymphocytes % 26.6 % (10-50); Mean Corpuscular HGB Conc 32.4 g/dL (31.8-35.4); Mean Corpuscular Volume 92.7 fl (81-99); Mean Platelet Volume 10.4 fl (7.4-10.4); Monocytes # 0.3 K/mm3 (0.1-1.0); Monocytes % 5.1 % (1.7-9.3); Neutrophils # 3.2 K/mm3 (1.8-7.8); Neutrophils % 64.6 % (37.0-80.0); Platelet Count 197 K/mm3 (142-424); Red Blood Count 4.71 M/mm3 (4.20-5.40); Red Cell Distribution Width 13.1 % (11.5-17.5)
[2024-01-29 16:50] LABS: Alanine Aminotransferase 34 U/L (12-78); Albumin Level 4.1 g/dl (3.5-5.0); Albumin/Globulin Ratio 1.5 (1.1-1.8); Alkaline Phosphatase 65 U/L (38-126); Aspartate Amino Transferase 34 U/L (14-36); Bilirubin,Total 0.7 mg/dl (0.2-1.3); Blood Urea Nitrogen 12 mg/dl (7-17); Calcium 9.2 mg/dl (8.4-10.2); Carbon Dioxide 28 mmol/L (22.0-30.0); Chloride 108 mmol/L (98-107); Estimated Glomerular Filt Rate 106 ml/min (>60); GFR (African American) 128 ML/MIN (>60); Globulin 2.8 g/dL (1.3-3.2); Glucose 88 mg/dl (74-100); Sodium 141 mmol/L (136-145); Total Protein,Serum 6.9 g/dl (6.3-8.2)
[2024-01-29 17:06] LABS: 25-OH Vitamin D, Total 50.2 ng/mL (30-100)
== END 2024-01-29 23:59 | disposition home or self-care (01) ==
LOC: LAB.DROPOF 01-30 09:10
PROVIDERS: PCP Nurse Practitioner Family; Visit Provider Nurse Practitioner Family
DX: E55.9 Vitamin D deficiency, unspecified (principal); R74.8 Abnormal levels of other serum enzymes
CPT/HCPCS: 80053; 82306; 85025

== ENCOUNTER 2024-05-11 11:16 | Outpatient (CLI) | payer OTHER, SELFPAY ==
--- NOTE | 2024-05-11 11:19 | US_ITS ---
FINAL REPORT TECHNIQUE: Ultrasound images of the abdomen were obtained. CLINICAL HISTORY: abdominal pain COMPARISON: None FINDINGS: ULTRASOUND ABDOMEN The liver has increased echogenicity compatible with fatty change. No focal lesion is identified. Spleen has a normal sonographic appearance. The gallbladder is surgically absent. There is no evidence of biliary obstruction. Kidneys show no evidence of mass or obstruction; however, echogenic foci are noted suggestive of nonobstructing renal stones. Pancreas is not well visualized. IVC and aorta are grossly unremarkable. There is no obvious fluid collection. IMPRESSION: Fatty change of the liver. No evidence of biliary obstruction. Probable tiny nonobstructing bilateral renal stones. Reviewed, Interpreted and Dictated by Moises Calix MD Transcribed by Kelley Avalos Authenticated and [facility]
[2024-05-11 12:20] LABS: Basophils % 0.7 % (0.1-2.0); Eosinophils % 1.3 % (0.1-12.0); Hematocrit 38.4 % (37.0-47.0); Hemoglobin 13.3 g/dL (12.2-16.2); Lymphocytes % 21.9 % (10-50); Mean Corpuscular HGB Conc 34.6 g/dL (31.8-35.4); Mean Corpuscular Volume 86.5 fl (81-99); Mean Platelet Volume 10.3 fl (7.4-10.4); Monocytes % 6.3 % (1.7-9.3); Neutrophils # 3.8 K/mm3 (1.8-7.8); Neutrophils % 69.6 % (37.0-80.0); Platelet Count 204 K/mm3 (142-424); Red Blood Count 4.44 M/mm3 (4.20-5.40); Red Cell Distribution Width 12.1 % (11.5-17.5); White Blood Count 5.4 K/mm3 (4.8-10.8)
[2024-05-11 12:21] LABS: Eosinophils # 0.3 K/mm3 (0.0-0.4); Monocytes # 1.2 K/mm3 (0.1-1.0)
[2024-05-11 12:39] LABS: Alanine Aminotransferase 21 U/L (12-78); Albumin Level 4.3 g/dl (3.5-5.0); Albumin/Globulin Ratio 1.9 (1.1-1.8); Alkaline Phosphatase 60 U/L (38-126); Aspartate Amino Transferase 26 U/L (14-36); Bilirubin,Total 0.9 mg/dl (0.2-1.3); Blood Urea Nitrogen 11 mg/dl (7-17); Calcium 9.8 mg/dl (8.4-10.2); Carbon Dioxide 30 mmol/L (22.0-30.0); Chloride 107 mmol/L (98-107); Chol/HDL Ratio 2.8 (1-3.5); Cholesterol 173 mg/dl (140-200); Estimated Glomerular Filt Rate 76 ml/min (>60); GFR (African American) 92 ML/MIN (>60); Globulin 2.3 g/dL (1.3-3.2); Glucose 83 mg/dl (74-100); HDL Cholesterol 61 mg/dl (40-60); Sodium 140 mmol/L (136-145); Total Protein,Serum 6.6 g/dl (6.3-8.2); Triglycerides 81 mg/dl (30-150); VLDL Cholesterol 16 mg/dL (0-40)
[2024-05-11 12:49] LABS: C-Reactive Protein 1.1 mg/L (0-4); Direct LDL Cholesterol 74.05 mg/dL (100-129)
[2024-05-11 13:09] LABS: Thyroid Stimulating Hormone 1.39 uIU/mL (0.465-4.68)
[2024-05-11 13:15] LABS: Iron 105 ug/dL (37-170)
[2024-05-11 13:22] LABS: Hemoglobin A1C 4.5 % (4.0-6.0)
[2024-05-11 13:24] LABS: Total Iron Binding Capacity 264 ug/dL (265-497)
== END 2024-05-11 23:59 | disposition home or self-care (01) ==
LOC: RAD 11:17
PROVIDERS: PCP Nurse Practitioner Family; Visit Provider Nurse Practitioner Family
DX: R10.9 Unspecified abdominal pain (principal); R63.4 Abnormal weight loss; R53.83 Other fatigue
CPT/HCPCS: 36415; 76700; 80050; 80053; 80061; 83036; 83540; 83550; 83735; 84443; 85025; 86140

== ENCOUNTER 2024-07-15 10:03 | Outpatient (CLI) | payer OTHER, SELFPAY | END 2024-07-15 23:59 | disposition home or self-care (01) | LOC: LAB.DROPOF 07-16 15:06 | PROVIDERS: PCP Family Medicine; Visit Provider Family Medicine | DX: N39.0 Urinary tract infection, site not specified (principal) | CPT/HCPCS: 87086; 87088; 87186 ==

== ENCOUNTER 2024-11-26 11:15 | Outpatient (CLI) | payer OTHER, SELFPAY ==
--- OUTSIDE RECORDS SUMMARY | 2021-08-02 03:22 | XMS_ITS | Continuity of Care Document ---
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 Name Role Phone Roxanne Michel MD Unavailable Unavailable Allergies, Adverse Reactions, Alerts Substance Reaction Status Criticality No Known Allergies Active No Inform ation Medications Medication Instructions Dosage Effective Dates (start - stop) Status Comments baclofen 20 mg tablet take 1 tablet by oral route 3 times every day 20 MG - Active do not drive Zofran 4 mg tablet take 1 tablet by ora l route every 6 hours for 2 days 4 MG - Active meclizine 25 mg tablet take 1 tablet by oral route 3 times every day as needed 25 MG - Active Procedures Procedure Date METABOLIC PANEL: CHEM 19 LIPID PANEL TSH T-4 FREE CBC (NO DIFF)&PLATELET CT Vitamin D 3 25 Hydroxy Level VITAMIN B-12 CHEMISTRY SED.RATE/AUTOMATED (Offsite) RHEUMATOID FACTOR QUANT. OFFICE VISIT/EST LEVEL III Medication Reviewed TOBACCO NON-USER PHQ2 Negative MUMPS TITER RUBELLA TITER RUBEOLA Varicella Titer OFFICE VISIT/EST LEVEL III Medication Reviewed TOBACCO NON-USER PHQ2 Negative OFFICE VISIT/EST LEVEL III Medication Reviewed TOBACCO NON-USER PHQ2 Negative EKG, COMPLETE OFFICE VISIT/EST LEVEL IV Medication Reviewed TOBACCO NON-USER PHQ2 Negative OFFICE VISIT/EST LEVEL IV Medication Reviewed TOBACCO NON-USER OFFICE VISIT/EST LEVEL III CBC W/DIFF. CHEM 8 OFFICE VISIT/EST LEVEL III TSH T-4 FREE OFFICE VISIT/EST LEVEL III Medication Reviewed TOBACCO NON-USER PHQ2 Negative OFFICE VISIT/EST LEVEL III Medication Reviewed TOBACCO NON-USER PHQ2 Negative OFFICE VISIT/EST LEVEL III Medication Reviewed TOBACCO NON-USER OFFICE VISIT/EST LEVEL III Medication Reviewed TOBACCO NON-USER OFFICE VISIT/EST LEVEL III HIV 1 ANTIGEN W/HIV 1&2 ANTIBODIES HEPATITIS PANEL:A,B,C VDRL CHLAMYDIA/DNA PROBE GGDNA OFFICE VISIT/EST LEVEL III CHLAMYDIA/DNA PROBE GGDNA OFFICE VISIT/EST LEVEL III VITAMIN B-12 CHEMISTRY OFFICE VISIT/EST LEVEL III OFFICE VISIT/EST LEVEL III CBC W/DIFF. METABOLIC PANEL: CHEM 19 MONO SCREEN TSH VITAMIN B-12 CHEMISTRY OFFICE VISIT/EST LEVEL III IMMUNIZATION ADM/SNGL TDAP (7+ Yrs) (3) EXMPT (C) OFFICE VISIT/EST LEVEL III OFFICE VISIT/EST LEVEL III OFFICE VISIT/EST LEVEL III OFFICE VISIT/EST LEVEL II OFFICE VISIT/EST LEVEL II URINE DIP URINE CULTURE OFFICE VISIT/EST LEVEL III OFFICE VISIT/EST LEVEL III Toradol Per 30 mg THER/PROPH/DIAG INJ, SC/IM MA VISIT CBC W/DIFF. METABOLIC PANEL: CHEM 19 TSH VITAMIN B-12 CHEMISTRY FOLIC ACID (FOLATE) SERUM HIV-1 & HIV-2,/SINGLE VDRL HEPATITIS C ANTIBODY OFFICE VISIT/EST LEVEL III CHLAMYDIA/DNA PROBE GGDNA OFFICE VISIT/EST LEVEL III OFFICE VISIT/EST LEVEL III INFLUENZA A NASAL SWAB InHouse 15 INFLUENZA B NASAL SWAB [facility] 15 OFFICE VISIT/EST LEVEL III OFFICE VISIT/EST LEVEL III OFFICE VISIT/EST LEVEL III OFFICE VISIT/NEW LEVEL III CBC W/DIFF. METABOLIC PANEL: CHEM 19 TSH MAGNESIUM OFFICE VISIT/EST LEVEL III WET PREP/ONSITE DESHAUN FOR FUNGI(ONSITE) URINE DIP URINE CULTURE OFFICE VISIT/EST LEVEL III URINE DIP URINE CULTURE OFFICE VISIT/EST LEVEL IV OFFICE VISIT/EST LEVEL III CBC W/DIFF. METABOLIC PANEL: CHEM 19 T-3 UPTAKE TSH SED.RATE(WSTRGREN)ONSITE C-REACTIVE PROTEIN (CRP) CCP ANTIBODY RHEUMATOID FACTOR QUANT. T-4 FREE OFFICE VISIT/EST LEVEL III CHEM 8 H.PYLORI, SINGLE STEP OFFICE VISIT/EST LEVEL IV EKG, COMPLETE MA VISIT OFFICE VISIT/EST LEVEL II PPD INTRADERMAL OFFICE VISIT/EST LEVEL II OFFICE VISIT/EST LEVEL III T-3 UPTAKE T-4 FREE TSH FSH LH PROLACTIN OFFICE VISIT/EST LEVEL III OFFICE VISIT/EST LEVEL III AUDIOMETRY PURE TONE TSH OFFICE VISIT/EST LEVEL III CHLAMYDIA/DNA PROBE GGDNA URINE DIP URINE CULTURE OFFICE VISIT/EST LEVEL III OFFICE VISIT/EST LEVEL III OFFICE VISIT/NEW LEVEL III Advance Directives Directive Yes / No Effective Date File Name No Information Encounters Encounter Description Practice Location Reason(s) For Visit Diagnoses Date Provider Providers Copied on Encounter [facility], [address] [facility] [address], [place], [place], [id number], tel:[phone] [facility] No Information 2 Marilu WOODARD Roxanne. [address] [facility] [address], [place], [address], [place]. tel:[phone] OFFICE VISIT/EST LEVEL III [facility], [address], [place], [place], [id number], tel:[phone] [facility] fatigue (chief complaint) Fatigue, unspecified typeBody mass index (BMI) 26.0-26.9, adult Aug-0 0 Keyshawn Poole. [address] [place], [place], [id number], [place]. tel:[phone] OFFICE VISIT/EST LEVEL III [facility], [address], [place], [place], [id number], tel:[phone] [facility] back pain (chief complaint) Dietary counseling and surveillanceL ow back painImmunity status testingBody mass index (BMI) 26.0-26.9, adult Nov-0 - 9 Marilu Oliveira. [address] [place] [address], [facility], . tel:[phone] OFFICE VISIT/EST LEVEL III [facility], [address], [place], [place], [id number], tel:[phone] [facility] back pain (chief complaint) Dietary counseling and surveillanceL ow back painBody mass index (BMI) 26.0-26.9, adult 9 Marilu Oliveira. [address] [place] [address], [facility], . tel:[phone] OFFICE VISIT/EST LEVEL IV [facility], [address], [place], [id number], tel:[phone] [facility] depression (chief complaint)briana st pain (chief complaint)bru ising (chief complaint)clarisa r loss (chief complaint) Depression, unspecified depression typeChest pain, unspecified typeBody mass index (BMI) 23.0-23.9, adult Jan-2 8 Marilu Oliveira. [address] [place] [address], [facility], [place]. tel:[phone] OFFICE VISIT/EST LEVEL IV [facility], [address], [place], [place], [id number], [place] tel:[phone] [facility] depression (chief complaint)aarti nful intercourse (chief complaint) Depression, unspecified depression typePain in female genitalia on intercourseBo dy mass index (BMI) 22.0-22.9, adult 0 8 Marilu Oliveira. [address] [place] [address], [facility], [place]. tel:[phone] OFFICE VISIT/EST LEVEL III [facility], [address], [place], [place], [id number], [place] tel:[phone] [facility] fatigue (chief complaint)dep ression (chief complaint)leg pain (chief complaint) Depression, unspecified depression type 8 Marilu Oliveira. [address] [facility] [address] , [place], [facility], . tel:[phone] OFFICE VISIT/EST LEVEL III [facility], [address], [place], [place], [id number], [place] tel:[phone] [facility] hypothyroidis m (chief complaint) Hypothyroidis mFatigue, unspecified type 8 Marilu Oliveira. [address] [facility] [address] , [place], [facility], . tel:[phone] OFFICE VISIT/EST LEVEL III [facility], [address], [place], [place], [id number], [place] tel:[phone] [facility] psoriasis (chief complaint) Psoriasis, unspecifiedHy pothyroidismB sukhi mass index (BMI) 25.0-25.9, adult 8 Marilu Oliveira. [address] [facility] [address] , [place], [facility], . tel:[phone] OFFICE VISIT/EST LEVEL III [facility], [address], [place], [place], [id number], [place] tel:[phone] [facility] vertigo (chief complaint) VertigoBody mass index (BMI) 26.0-26.9, adult 8 Keyshawn Poole. [address] [place], [place], [id number], [place]. tel:[phone] OFFICE VISIT/EST LEVEL III [facility], [address], [place], [place], [id number], [place] tel:[phone] [place] [address] x-ray results (chief complaint) Right leg painBody mass index (BMI) 25.0-25.9, adult Dec-0 7 Marilu Oliveira. [address] [facility] [address] , [place], [facility], . tel:[phone] OFFICE VISIT/EST LEVEL III [facility], [address], [place], [place], [id number], tel:[phone] [place] [address] right leg pain (chief complaint) Right leg painBody mass index (BMI) 25.0-25.9, adult Mar- 7 Marilu Oliveira. [address] [place] [address] [address] , [place], [facility], . tel:[phone] OFFICE VISIT/EST LEVEL III [facility], [address], [id number], tel:[phone] [place] [address] f/u (chief complaint) Acute vaginitis 7 Marilu Oliveira. [address] [facility] [address] , [place], [facility], . tel:[phone] OFFICE VISIT/EST LEVEL III [facility], [address] [place] [address], [id number], tel:[phone] [place] [address] spot on vagina (chief complaint) Genital wartsContact with or exposure to venereal diseases 7 Marilu Oliveira. [address] [facility] [address] , [place], [facility], [place]. tel:[phone] OFFICE VISIT/EST LEVEL III [facility], [address] [place] [address], [id number], tel:[phone] [place] [address] right leg pain (chief complaint) Acute right hip painRight calf pain 7 Vini Rico. [address] [place] [address], [id number], [place]. tel:[phone] OFFICE VISIT/EST LEVEL III [facility], [address], [place], [place], [address], [place] tel:[phone] [facility] fatigue (chief complaint) No Information 6 Vini Rico. [address] [place], [place], [id number], [place]. tel:[phone] OFFICE VISIT/EST LEVEL III [facility], [address], [place], [place], [id number], [place] tel:[phone] [facility] discharge (chief complaint) Acute vaginitisHx of exposure to hazardous bodily fluidsETD (eustachian tube dysfunction), leftVitamin B12 deficiency 6 Vini Rico. [address] [place] [address], [id number], [place]. tel:[phone] OFFICE VISIT/EST LEVEL III [facility], [address] [facility] [address], [place], [place], [address], [place] tel:[phone] [facility] fatigue (chief complaint) Fatigue, unspecified typeNausea September- 6 Vini Rico. [address] [place] [address], [id number], [place]. tel:[phone] OFFICE VISIT/EST LEVEL III [facility], [address] [facility] [address], [place], [id number], [place] tel:[phone] [facility] follow up (chief complaint) Depression, unspecified depression typeHerpes zoster without complication Aug-0 6 Vini Rico. [facility] [place], [place], [id number], [place]. tel:[phone] OFFICE VISIT/EST LEVEL III [facility], [address] [facility] [address], [place], [place], [id number], [place] tel:[phone] [facility] rash (chief complaint) Herpes zoster without complication Aug-0 6 Vini Rico. [address] [place] [address], [id number], . tel:[phone] [facility], [address] [facility] [address], [place], [place], [id number], tel:[phone] [facility] Cough 6 Vini Rico. [address] [place] [address], [id number], . tel:[phone] OFFICE VISIT/EST LEVEL III [facility], [address] [facility] [address], [place], [place], [id number], [place] tel:[phone] [facility] URI (chief complaint) BronchitisDep ression, unspecified depression typePrimary insomnia 6 Vini Rico. [address] [place] [address], [id number], [place]. tel:[phone] OFFICE VISIT/EST LEVEL II [facility], [address] [place] [address], [place], [place], [id number], tel:[phone] [facility] Breast lump (chief complaint) Breast mass, left 5 Vini Rico. [address] [place] [address], [id number], [place]. tel:[phone] OFFICE VISIT/EST LEVEL II [facility], [address] [place] [address], [id number], tel:[phone] [facility] vaginal discharge (chief complaint) Acute vaginitis 5 Vini Rico. [address] [place] [address], [id number], [place]. tel:[phone] OFFICE VISIT/EST LEVEL III [facility], [address] [place] [address] [address], [place], [place], [id number], tel:[phone] [facility] headache (chief complaint)UTI (chief complaint) No Information 5 Vini Rico. [address] [place] [address], [id number], [place]. tel:[phone] OFFICE VISIT/EST LEVEL III [facility], [address] [facility] [address], [place], [place], [id number], tel:[phone] [facility] headache (chief complaint)hea dache (chief complaint) No Information 5 Vini Rico. [address] [place], [place], [id number], [place]. tel:[phone] [facility], [address] [facility] [address] [facility], [place], [place], [id number], [place] tel:[phone] [place] [address] No Information 5 Vini Rico. [facility] [place], [place], [id number], . tel:[phone] OFFICE VISIT/EST LEVEL III [facility], [address] [place] [address], [id number], tel:[phone] [facility] Follow Up of depression (chief complaint)STD concerns (chief complaint)tin gling around mouth (chief complaint) No Information 5 Vini Rico. [facility] [place], [place], [id number], [place]. tel:[phone] OFFICE VISIT/EST LEVEL III [facility], [address] [place] [address], [id number], tel:[phone] [facility] URI (chief complaint) No Information - 5 Vini Rico. [facility] [place], [place], [id number], [place]. tel:[phone] OFFICE VISIT/EST LEVEL III [facility], [address] [place] [address], [place], [place], [id number], tel:[phone] [facility] UTI (chief complaint)vag inal discharge (chief complaint) No Information 3- 5 Vini Rico. [facility] [place], [place], [id number], . tel:[phone] OFFICE VISIT/EST [facility] III [facility], [address] [facility] [address], [place], [place], [id number], tel:[phone] [facility] depression (chief complaint) No Information 5 Vini Rico. [address] [place], [place], [id number], . tel:[phone] OFFICE VISIT/EST LEVEL III [facility], [address], [place], [place], [id number], [place] tel:[phone] [facility] depression (chief complaint)sherrill k pain (chief complaint) No Information 0- 4 Vini Rico. [address] [place], [place], [id number], . tel:[phone] OFFICE VISIT/EST [facility] III [facility], [address] [facility] [address], [place], [place], [id number], tel:[phone] [facility] right knee pain (chief complaint)clarisa r falling out (chief complaint) No Information Jan-0 4 Vini Rico. [address] [place], [place], [id number], . tel:[phone] OFFICE VISIT/NEW [facility] III [facility], [address] [facility] [address], [place], [place], [id number], tel:[phone] [facility] leg cramps (chief complaint)fas t heart beat (chief complaint) No Information 4 Vini Rico. [facility] [place], [place], [id number], [place]. tel:[phone] OFFICE VISIT/EST [facility] III [facility], [address], [place], [place], [id number], tel:[phone] [facility] knot on L forearm (chief complaint)vag inal discharge (chief complaint) No Information Sep-0 3 No Information OFFICE VISIT/EST LEVEL III [facility], [address] [facility] [address], [place], [place], [id number], [place] tel:[phone] [facility] back pain (chief complaint) No Information 3 No Information OFFICE VISIT/EST LEVEL IV [facility], [address], [place], [id number], tel:[phone] [facility] discuss test results (chief complaint) No Information 3 No Information OFFICE VISIT/EST LEVEL III [facility], [address] [facility] [address], [place], [place], [address], [place] tel:[phone] [facility] swelling (chief complaint) No Information 3 No Information OFFICE VISIT/EST LEVEL III [facility], [address] [place] [address], [id number], tel:[phone] [facility] dizziness (chief complaint) No Information 2 No Information [facility], [address] [facility] [address] [facility], [place], [place], [id number], [place] tel:[phone] [facility] Bloodwork (chief complaint) No Information 2 Shira [facility] [place]. [address] [place] [address], [id number], [place]. tel:[phone] OFFICE VISIT/EST LEVEL IV [facility], [address] [place] [address] [address], [place], [id number], tel:[phone] [facility] weight gain (chief complaint)Eladio sea (chief complaint)briana st pain (chief complaint) No Information 2 Shira PAC [place]. [address] [place] [address], [id number], [place]. tel:[phone] [facility], [address] [place] [address], [id number], tel:[phone] [facility] No Information - 2 No Information OFFICE VISIT/EST LEVEL II [facility], [address] [place] [address] [address], [place], [place], [id number], tel:[phone] [facility] depression (chief complaint)tb test (chief complaint) No Information 0- 2 No Information OFFICE VISIT/EST LEVEL II [facility] [address], [place], [place], [id number], tel:[phone] [facility] depression (chief complaint)Fol low up on labs (chief complaint) No Information 2 No Information OFFICE VISIT/EST LEVEL III [facility] Of [address], [id number], tel:[phone] [facility] weight gain (chief complaint)ang ry,not staying focused (chief complaint) No Information 2 No Information OFFICE VISIT/EST LEVEL III [facility] Of [address] [facility], [place], [place], [id number], tel:[phone] [facility] back pain (chief complaint) No Information 1 No Information OFFICE VISIT/EST LEVEL III [facility] Of [address] [facility], [place], [place], [id number], tel:[phone] [facility] wanting ears checked (chief complaint)merry ght gain (chief complaint) No Information 1 No Information OFFICE VISIT/EST LEVEL III [facility] Of [address] [facility], [place], [place], [id number], [place] tel:[phone] [facility] dysuria (chief complaint) No Information - 0 No Information OFFICE VISIT/EST LEVEL III [facility] Of [address] [facility], [place], [place], [address], tel:[phone] [facility] No Information 9 No Information OFFICE VISIT/EST LEVEL III [facility] [address], [place], [place], [id number], [place] tel:[phone] [facility] No Information Dec-1 0-200 9 No Information OFFICE VISIT/NEW LEVEL III [facility], [address], [place], [place], [id number], [place] tel:[phone] [facility] No Information Dec-0 2-200 9 No Information Family History Family Member Type Diagnosis Age At Onset Paternal grandfather Problem (finding) stroke Mother Problem (finding) Cancer Paternal grandmother Problem (finding) hypertension Paternal grandmother Problem (finding) breast cancer Paternal grandmother Problem (finding) tuberculosis Daughter Problem (finding) migraine Daughter Problem (finding) Maternal histo ry of diabetes mellitus Daughter Problem (finding) migraine Paternal grandmother Problem (finding) Heart disease Paternal grandmother Problem (finding) raised blood li pids Daughter Problem (finding) Maternal histo ry of diabetes mellitus Immunizations Vaccine Date Status Comments Tdap (Adacel) administered Source: New Im munization Record Payers Payer name Insurance type Covered libertarian ID Authoriza tiruben(s) Custom Design [facility] [id number] Social History Type Description Quantity Date Captured Comments Alcohol Use Details Unknown Caffeine Use Details Unknown Tobacco Use Status No Information Smoking Status No Information Sex Female Sexual Orientation Straight or heterosexual Nov Gender Identity Female Chief Complaint And Reason For Visit No Information Reason For Referral Reason For Referral No Information Plan Of Treatment Date Type Action Status Goal Influenza vaccine. Due on due Goal Pap/HPV testing. Due on due Goal Tdap. Due on due Goal HIV Screen due Goal Lipid panel. Due on 025 due Goal H&P. Due on due Goal Lipid panel. Due on 020 due Goal Influenza vaccine. Due on due Goal HIV Screen. Due on due Goal Tdap. Due on due Goal Pap/HPV testing. Due on due Goal Weight-reducing diet educati on completed Goal HCV due Goal HIV Screen. Due on due Goal Influenza vaccine. Due on due Goal Pap/HPV testing. Due on due Goal Tdap. Due on due Goal Weight-reducing diet educati on completed Goal Pap/HPV testing. Due on due Goal Tdap. Due on due Goal HCV due Goal HIV Screen. Due on due Goal Influenza vaccine. Due on due Goal Weight-reducing diet educati on completed Goal Influenza vaccine. Due on due Goal HCV due Goal HIV Screen. Due on due Goal Tdap. Due on due Goal Pap/HPV testing. Due on due Goal STD screening. Due on due Goal Influenza vaccine. Due on due Goal HCV due Goal Tdap. Due on due Goal HIV Screen. Due on due Goal Influenza vaccine. Due on due Goal HCV due Goal HIV Screen. Due on due Goal Pap/HPV testing. Due on due Goal Tdap. Due on due Goal Tdap. Due on due Goal Pap/HPV testing. Due on due Goal HCV due Goal HIV Screen. Due on 18 due Goal Influenza vaccine. Due on due Goal STD screening. Due on due Goal Pap/HPV testing. Due on due Goal PPD (TST). Due on due Goal Breast exam. Due on due Goal Mammogram. Due on due Goal PPD (TST). Due on due Goal Breast exam. Due on due Goal Mammogram. Due on due Goal Pap/HPV testing. Due on due Goal Mammogram. Due on due Goal Pap/HPV testing. Due on due Goal Breast exam. Due on due Goal PPD (TST). Due on due Goal Pap/HPV testing. Due on due Goal Breast exam. Due on due Goal PPD (TST). Due on due Goal Mammogram. Due on due Goal Mammogram. Due on due Goal Breast exam. Due on due Goal PPD (TST). Due on due Goal Pap/HPV testing. Due on due Goal Breast exam. Due on due Goal Pap/HPV testing. Due on due Goal Mammogram. Due on due Goal PPD (TST). Due on due Goal Mammogram. Due on due Goal Breast exam. Due on due Goal PPD (TST). Due on due Goal Breast exam. Due on due Goal PPD (TST). Due on due Goal PPD (TST). Due on due Goal Breast exam. Due on due Goal PPD (TST). Due on due Goal Breast exam. Due on due Goal Breast exam. Due on due Goal PPD (TST). Due on due Goal PPD (TST). Due on due Goal Breast exam. Due on due Goal PAP. Due on due Goal Mammogram. Due on due Goal Tdap. Due on due Goal PPD (TST). Due on due Goal Pap/HPV testing. Due on due Goal Breast exam. Due on due Goal PPD (TST). Due on due Goal PAP. Due on due Goal Tdap. Due on due Goal Breast exam. Due on due Goal Pap/HPV testing. Due on due Goal Mammogram. Due on 6 due Goal Breast exam. Due on due Goal PPD (TST). Due on due Goal Tdap. Due on due Goal PAP. Due on due Goal Mammogram. Due on due Goal Pap/HPV testing. Due on due Goal PPD (TST). Due on due Goal Pap/HPV testing. Due on due Goal Tdap. Due on due Goal Breast exam. Due on due Goal PAP. Due on due Goal Mammogram. Due on due Goal PPD (TST). Due on due Goal PAP. Due on due Goal Tdap. Due on due Goal Breast exam. Due on due Goal Mammogram. Due on due Goal Pap/HPV testing. Due on due Goal Mammogram. Due on due Goal PAP. Due on due Goal Pap/HPV testing. Due on due Goal PPD (TST). Due on due Goal Tdap. Due on due Goal Breast exam. Due on due Referral Ordered: Referrals: Cardiology. Evaluate and treat ordered Referral Ordered: Ultrasound Pelvic- NON OB ordered Referral Ordered: Referrals: Sleep Study. Evaluate and treat ordered Referral Ordered: Referrals: Dermatology. Evaluate and treat ordered Referral Ordered: Referrals: Otolaryngology. Evaluate and treat ordered Referral Referred To: Physical Therapy Ordered: Referrals: Physical Therapy. Evaluate and treat ordered Referral Ordered: HIP XRAY/2+ VIEWS Right ordered Referral Ordered: KNEE XRAY/3+ VIEWS ONE Right ordered Referral Ordered: Referrals: Gynecology. Evaluate and treat ordered Referral Ordered: TIBIA-FIBULA XRAY/2 VIEWS Right ordered Referral Ordered: VENOUS EXTREMITY STUDY/SINGLE EXT Right leg ordered Referral Ordered: Referrals: Orthopedic Surgery. Evaluate and treat ordered Referral Ordered: Mammogram, Diagnostic G0204 Bilateral ordered Referral Ordered: Referrals: Neurology ordered Referral Ordered: CT HEAD/BRAIN W/O DYE ordered Referral Ordered: referred to Dermatology ordered Referral Ordered: Referrals: Orthopedic Surgery ordered Referral Ordered: Echocardiogram W/Doppler ordered Referral Referred To: DR REDDING Ordered: Referral: DR REDDING. ordered Patient Education Vertigo: Care Instructi ons completed Future Order: Lab Order Measles/ Mumps/Rubella Immunity ([id number]), Sent on: Sent Future Order: Lab Order Varicell a-Zoster V Ab, IgG ([id number]), Sent on: Sent History Of Present Illness Encounter Date Complaint History Of Prese nt Illness fatigue The patient pres ents with arthralgia, back pain, fatigue, headache, nausea and somnolence. Risk factors exclude thyroid disease, heavy menses, peptic ulcers and exposure to sick contacts. The symptoms are aggravated by lack of sleep and work issues. The patient had a response to rest. The fatigue is associated with constipation, diaphoresis, hoarseness, loss of interest, malaise and weight gain. back pain Pertinent negati ves include bladder incontinence, bowel incontinence and weakness. Additional information: has improved. takes baclofen occasionally. back pain Onset: 1 week ag o. The problem is stable. Location of pain is lower back. Context: no injury. Symptoms are aggravated by bending. Pertinent negatives include bladder incontinence, bowel incontinence and weakness. Additional information: previously diagnosed with DDD. taking ibuprofen and flexeril, not working. bruising hair loss chest pain The patient pres ents with a complaint of chest pain. The problem occurs intermittently. The symptoms have worsened. The pain is in the precordial area. The patient describes the pain as sharp. The patient also complains of nausea and palpitations. The patient denies dyspnea. Relevant history for this patient includes family history of coronary artery disease but excludes tobacco use. The symptoms are aggravated by anxiety but not aggravated by exertion or food. The patient had a response to rest. Additional information: no edema in legs. not currently. had EKG at work 1 week ago which showed long QT and ischemia and told to f/u with PCP. did not go to ER. depression There is improve ment of initial symptoms. The patient reports functioning as not difficult at all. The patient does not present with thoughts of or suicide. The depression is associated with nausea. Additional information: doing well with medication. No side effects. painful intercourse h/o endometr iosis and had hysterectomy 20 years ago, still has ovaries. going on for a few months. no itching or discharge. feels like stabbing pain. had this before and told it was endometriosis. mutually monogamous. depression There is improve ment of initial symptoms. The patient reports functioning as not difficult at all. The patient does not present with thoughts of or suicide. Additional information: partially improved with medication.. No side effects. leg pain Onset: 4 weeks a go. The problem is stable. Location: bilateral. The pain is aching and sharp. Context: there is no injury. Pertinent negatives include swelling. Hand Dominance: right. Additional information: no personal or family h/o DVT/PE. fatigue The symptoms hav e remained unchanged. depression The patient repo rts functioning as somewhat difficult. The patient presents with anxious/fearful thoughts but denies feelings of invulnerability, increased energy or thoughts of or suicide. Additional information: mild, intermittent. hypothyroidism Risk factors inc lude female. Associated symptoms include fatigue. Additional information: taking levothyroxine as directed. no trouble sleeping, does not snore. no depression. no bleeding. sleeps 14 hours and is not refreshed. psoriasis The symptoms beg an 2 months ago. Pt states it is spreading everywhere. on bilateral elbows, right leg. has tried hydrocortisone otc. tried triamcinolone but does not know strength. saw derm 1-2 years ago and prescribed topicort, did not work well. itching is the worst part. sometimes has outbreaks in genital area.diagnosed with psoriasis as a teenager. vertigo Onset was 3 week s ago. Additional information: pt states she has been dizzy, having nausea, and vomiting. Pt states she has been taking meclizine and zofran. Pt states the zofran is helping but the meclizine is not helping the dizziness at all. x-ray results Pt had hip and k nee x-rays done on 03/29/2017. unchanged. worse when sitting or lying. not worse with lying down. dull ache. mostly knee and calf. no swelling. has had doppler that was negative. chronic back pain- unchanged.having dental issues- seeing dentist.no other complaints. right leg pain Onset: 6 months ago. The problem is worsening. Location: right. The pain is aching. Context: there is no injury. The pain is aggravated by lying still. The pain is relieved by mobility. Pertinent negatives include swelling and weakness. Additional information: Pt states pain has been on and off. Pt had x-rays and a doppler done as well to rule out blood clots. Everything came back normal. knee and calf. f/u Spot on vagina i s getting painful and peeling. Other spots or getting larger and the medication is not working. sexually active since last visit but consistently using condoms. had herpes test that was negative. spot on vagina The symptoms beg an 3 weeks ago. The location is on labia. has a history of genital warts, no pain but occasional itching. has psoriasis on elbows and genital region. 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 requests testing. right leg pain Onset: 1 month a go. Location: right. Hand Dominance: right. 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 several days after she developed pain right lower leg anterior aspect. she is also c/o rt hip pain. has tried motrin 800mg and flexeril w/o improvement. denies swelling. pt also injured rt shoulder- that is covered by WC but the leg injury is not because she did not report it immediately fatigue The patient pres ents with back pain, fatigue and headache. The patient does not present with abdominal pain, anorexia, arthralgia, cough, fever, muscle weakness, nausea, pharyngitis, somnolence, rash, vomiting or weight loss. Additional information: pt has been taking vit b 12 otc and pt feels more tired now than she did before she started the b12 tablets. pt has been taking 1000 mg daily since last appt. discharge (comments) pt had yonatan en back with ex-boyfriend. + odor, constant discharge, no pain with intercourse discharge Onset: on 2015. Additional information: pt has a yellow discharge. started when she was in [place] and is getting worse. fatigue This is an initi al visit. The symptoms began 2 weeks ago. The patient presents with fatigue, headache and nausea. The patient does not present with abdominal pain, back pain, cough or fever. Additional information: pt states that when she takes a hot shower she feels like she is going to pass out. fatigue (comments) no symptoms o ther than nausea and fatigue. denies fever, sore throat, swollen glands follow up (comments) depression is fine - doing well on medication. only c/o at this time is shingles. follow up pt here for her 3 month follow up. rash The patient pres ents for rash. This episode began day ago. The patient describes the affected area(s) as itchy. Associated symptoms include painful rash, pruritus and burning. Additional information: pt has rash left side under breast and around. URI (comments) has been taking nyquil/dayquil/chloraspetic spray without improvement- cough actually getting worse URI Additional infor mation: cough head congestion, and ST no fever, some chills, no sweats for 2 weeks. Breast lump (comments) pt states her maternal grandmother had breast cancer. Breast lump Discovered 4 allan rs ago. Status: The Patient reports no pain. The mass location is L breast- redness noted. Pertinent negatives include breast pain. vaginal discharge Additional inf ormation: ithcing at times, no burning for 1 week. vaginal discharge (comments) yel low discharge x 1 week. no odor and only mild itching at times. denies new sexual partners UTI Onset: 1 week ag o. The patient describes it as burning. Additional information: pt states her urnine is dark and has a strong smell. After pt if finished voiding she get a burning feeling. headache Additional infor mation: pt still having headaches. headache (comments) still having headaches. CT scan was negative. has been having a lot of nausea for past week UTI (comments) strong smell, un able to hold urine if she doesn't go immediately , having symptoms for about 10 days. no fever headache The symptoms beg an 6 days ago. The symptoms are reported as being intensity varies. The symptoms occur constantly. The location is behind rt ear. She states the symptoms are acute. pt has had BAKER x 6 days. she has had migraines approx every 6 months which typically last 1 day. this headache is different than her usual headache (comments) has taken ex cedrin migraine, ibuprofen, aleve without improvement. headache Onset: 6 Days. A dditional information: pt states it started behind eyes and moved to her right ear (behind). pt describes as stabbing on right side of head. tingling around mouth The sympto ms began 4 months ago. pt states that throughout the day she has been having tingling around her lips. Pt states it is starting to get annoying. Pt did have some root plan cleaning in march. Other than that she has not had any dental work done. The tingling started after ronel. depression depression Follow Up of depression STD concerns The symptoms beg an 2 weeks ago. pt wants to be checked for STD's. Pt states that when she was having intercourse the condom broke and she just wants to make sure she did not contract anything. URI Onset: 2 weeks a go. The patient describes the cough as moist and productive (of yellow sputum). Associated symptoms include cough, nasal congestion, rhinorrhea and sore throat. Pertinent negatives include fever. Additional information: earache started about a week ago. vaginal discharge (comments) thi ck white discharge/itching/no odor UTI Additional infor mation: possible UTI lower back pain. vaginal discharge Additional inf ormation: vaginal discharge and itching. UTI (comments) symptoms started 2 days ago depression Additional infor mation: f/u on depression meds. depression (comments) having dif ficulty staying asleep despite taking benadryl hs. she c/o feeling tired constantly. doing well on zoloft. she does c/o difficulty with concentration back pain Location of pain is lower back.The patient describes the pain as localized. 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 depression Additional infor mation: f/u on depression and new meds. doing well on zoloft, but feels she needs a higher dose. right knee pain Location: right knee. Additional information: right knee pain. hair falling out pt states she i s lossing alot of hair leg cramps pt has been havi ng leg cramps and continue to stay sore after cramp eases up. fast heart beat pt feels her hea r flutter and she feels chest pain. 2 years ago Pt had EKG and T wave was not normal so pt had an echo done and everything looked normal. Functional Status Date Functional Assessmen t No Information Instructions Date Instruction Additional Infor mation fasting labs obtained Related to Fatigue, unspecified type Drink plenty of fluids Related t o Fatigue, unspecified type take meds as directed Related to Fatigue, unspecified type Giving encouragement to exercise Related to Dietary counseling and surveillance Weight-reducing diet education R elated to Dietary counseling and surveillance Weight-reducing diet education R elated to Dietary counseling and surveillance Giving encouragement to exercise Related to Dietary counseling and surveillance Weight-reducing diet education R elated to Dietary counseling and surveillance Giving encouragement to exercise Related to Dietary counseling and surveillance pt was dx with verti go several years agonon cause/reasonpt is on meclizine and zofran and remains dizzypt has never had an ENT workupref to ENT for eval Related to Vertigo ref to ENT Related to Verti go take vitamin B12 sub lingual tablets 2500 mcg daily Related to Vitamin B12 deficiency take claritin D or a llegra D (generic available otc) Related to ETD (eustachian tube dysfunction), left Take medication(s) as prescribed Related to Depression, unspecified depression type take meds as prescribed Related to Herpes zoster without complication take medications as prescribed R elated to Acute vaginitis take medication as prescribed Re lated to Headache go to the ER for any worsening of symptoms Related to Headache Take medication(s) as prescribed Related to Depression drink extra fluids Related to Co ugh Take medication(s) as prescribed Related to Depression Can try the Chana amor if symptoms persistent Related to Dizziness Go the ED if symptom s worsen and you are unable to take oral food/water Related to Dizziness maybe related to cp? Related to Nausea alone ekg done and would mohan montano to refer to cardio Related to Chest Pain, Unspecified patient concered due to cost and no insurance Related to Chest Pain, Unspecified all labs done except checking for dm and maybe hpylori for nausea do today Related to Abnormal weight gain continue current reg imen all labs thus far normal Related to Abnormal weight gain refer to cardio for evaluation R elated to Chest Pain, Unspecified Continue current medication Increase dose as instructed Continue current medication Take new medication as prescribe d Change medication Warm compresses Apply ice to affected area Rest Assessments Type Assessment Date No Information Patient Care Teams Name Effective Dates (start - stop) Status Members No Information
--- OUTSIDE RECORDS SUMMARY | 2024-11-23 04:44 | XMS_ITS | Encounter Summary ---
Author Organization [facility] American Board of Addiction Medicine (ABAM)[facility] Address [address] [place] [address] Care Team Providers Care Store Protection Specialist Name Role Phone Taco Miranda MD Primary Care Provider [phone] Reason for Visit * Reason Comments Abdominal Pain Patient states she a te chipolte tonight and vomiting started after eating and now she has liquid diarrhea. Encounter Details Date Type Department Care Team (Late st Contact Info) Description 11/23/2024 4:44 AM EDT - 11/23/2024 11:45 AM EDT Emergency [facility] Emergency Department [address] [place] [address] Jemima Coffey MD [address] [place] [address] Rahul Felix MD [address] [place] [address] Enterocolitis (Primary Dx); Nausea vomiting [...] for any worsening symptoms. Follow-up with your casing runner for outpatient ultrasound of pelvic cyst with recommended repeat ultrasound in 6 months per radiologist but talk to your casing runner to see if anything sooner is needed. [...] be sent through Care Everywhere. * Colitis (Spanish) documented in this encounter Medications at Time [...] - 2.0 mmol/L 11/23/2024 10:44 AM EDT [facility] Blood BLOOD SPECIMEN / Unknown 11/23/2024 10:27 AM EDT 11/23/2024 10:27 AM EDT us Rahul Felix MD CHEMISTRY ORDERABLES Final Re sult [facility] [address] [place] [address] * US PELVIS COMPLETE NON-OB TRANSABD/TRANSVAG W [...] free fluid. Hysterectomy. us Rahul Felix MD [facility] [place] ORDERABLES Final Resul t * (ABNORMAL) Lactic Acid (11/23/2024 7:40 AM EDT) Lactic Acid 3.2(H) 0.4 - 2.0 mmol/L 11/23/2024 7:56 AM EDT [facility] Blood BLOOD SPECIMEN / Unknown 11/23/2024 7:40 AM EDT 11/23/2024 7:40 AM EDT Jemima Coffey MD CHEMISTRY ORDERABLES Final Result [facility] [address] [phone] * GI Bacterial Pathogens By PCR (11/23/2024 7:20 AM EDT) Pathologist [facility] GI Bacterial Pathogens By PCR No Shigella spp/EIEC DNA detected No Shiga toxin-producing gene(s) detected No Campylobacter spp. (jejuni and coli)DNA detected No Salmonella spp. DNA detected No Vibrio vulnificus/parahae molyticus/cholerae DNA detected No Plesiomonas shigelloides DNA detected No Enterotoxigenic E. coli (ETEC) DNA detected No Yersinia enterocolitica DNA detected Normal Range: None detected [facility] STOOL SPECIMEN / Unknown 11/23/2024 7:20 AM EDT 11/23/2024 7:25 AM EDT Narrative [facility] - 11/24/2024 1:58 PM EDT ORDER#: [id number] ORDERED BY: JEMIMA COFFEY SOURCE: Stool COLLECTED: 11/23/24 07:20 ANTIBIOTICS AT JAMES.: RECEIVED : 11/23/24 07:25 Jemima Coffey MD MICROBIOLOGY - GENERAL ORD ERABLES Final Result [facility] [address] [place] [address], [facility] [phone] * Clostridium difficile toxin/antigen (11/23/2024 7:20 AM EDT) C.diff Toxin/Antigen Negative for Clostridium difficile antigen and toxin Normal Range: Negative [facility] Stool STOOL SPECIMEN / Unknown 11/23/2024 7:20 AM EDT 11/23/2024 7:24 AM EDT Narrative [facility] - 11/23/2024 8:20 AM EDT ORDER#: [id number] ORDERED BY: JEMIMA COFFEY SOURCE: Stool stool COLLECTED: 11/23/24 07:20 ANTIBIOTICS AT JAMES.: RECEIVED : 11/23/24 07:24 Collect White vial (sterile container) Jemima Coffey MD MICROBIOLOGY - GENERAL ORD ERABLES Final Result [facility] [address] [place] [address], [facility] [phone] * CT ABDOMEN PELVIS W IV CONTRAST [...] Calculation (Bazett) 447 ms SWOH MUSE P [place] 72 degrees SWOH MUSE R [place] 56 degrees SWOH MUSE T [place] 46 degrees SWOH MUSE Diagnosis Normal sinus rhythmNonspecific ST abnormalityAbnormal ECGWhen compared with ECG of 02-AUG-2021 02:25,No significant change was foundConfirmed by PATRICIA VENTURA MD ([id number]) on 11/23/2024 7:56:06 AM NATALIE MUSE 11/23/2024 5:00 AM EDT 11/23/2024 7:56 AM EDT Jemima Coffey MD ECG ORDERABLES Final Resu lt Performing Organization Address City/[facility]/ZIP Co de Phone Number NATALIE NEWTON * Culture, Urine (11/23/2024 5:00 AM EDT) Urine Culture, Routine No growth at 18 to 36 hours [facility] Urine URINE SPECIMEN / Unknown 11/23/2024 5:00 AM EDT 11/23/2024 7:44 AM EDT Narrative [facility] - 11/24/2024 7:29 AM EDT ORDER#: [id number] ORDERED BY: JEMIMA COFFEY SOURCE: Urine Clean Catch COLLECTED: 11/23/24 05:00 ANTIBIOTICS AT JAMES.: RECEIVED : 11/23/24 07:44 Jemima Coffey MD MICROBIOLOGY - GENERAL ORD ERABLES Final Result Performing Organization Address [facility] Co de Phone Number [facility] [address] [phone] * (ABNORMAL) Lactic Acid (11/23/2024 5:00 AM EDT) Lactic Acid 2.5(H) 0.4 - 2.0 mmol/L 11/23/2024 5:36 AM EDT [facility] Blood BLOOD SPECIMEN / Unknown 11/23/2024 5:00 AM EDT 11/23/2024 5:16 AM EDT Jemima Coffey MD CHEMISTRY ORDERABLES Final Result Performing Organization Address City/[facility]/ZIP Co de Phone Number [facility] [address] [place] [address] * Troponin (11/23/2024 5:00 AM EDT) [facility] Troponin, High Sensitivity <6 0 - 14 ng/L 11/23/2024 5:37 AM EDT [facility] Comment: The high-sensitivity troponin T result should not be compared with other troponin methodologies. Blood BLOOD SPECIMEN / Unknown 11/23/2024 5:00 AM EDT 11/23/2024 5:11 AM EDT us Jemima Coffey MD CHEMISTRY ORDERABLES Final Result [facility] [address] [place] [address] * (ABNORMAL) Urinalysis with Microscopic (11/23/2024 5:00 AM EDT) Pathologist [facility] Color, UA Yellow Straw/Yellow 11/23/2024 5:20 AM EDT [facility] Clarity, UA Clear Clear 11/23/2024 5:20 AM EDT [facility] Glucose, Ur Negative Negative mg/dL 11/23/2024 5:20 AM EDT [facility] Bilirubin, Urine SMALL(A) Negative 11/23/2024 5:20 AM EDT [facility] Ketones, Urine Negative Negative mg/dL 11/23/2024 5:20 AM EDT [facility] Specific [place], UA >=1.030 1.005 - 1.030 11/23/2024 5:20 AM EDT [facility] Blood, Urine MODERATE(A) Negative 11/23/2024 5:20 AM EDT [facility] pH, Urine 5.5 5.0 - 8.0 11/23/2024 5:20 AM EDT [facility] Protein, UA 100(A) Negative mg/dL 11/23/2024 5:20 AM EDT [facility] Urobilinogen, Urine 1.0 <2.0 E.U./dL 11/23/2024 5:20 AM EDT [facility] Nitrite, Urine Negative Negative 11/23/2024 5:20 AM EDT [facility] Leukocyte Esterase, Urine TRACE(A) Negative 11/23/2024 5:20 AM EDT [facility] Microscopic Examination YES 11/23/2024 8:38 AM EDT [facility] Urine Type NotGiven 11/23/2024 5:14 AM EDT [facility] Hyaline Casts, UA 0-2 0 - 2 /LPF 11/23/2024 5:51 AM EDT [facility] Mucus, UA 2+(A) None Seen /LPF 11/23/2024 5:51 AM EDT [facility] WBC, UA 10-20(A) 0 - 5 /HPF 11/23/2024 5:51 AM EDT [facility] RBC, UA 0-2 0 - 4 /HPF 11/23/2024 5:51 AM EDT [facility] Epithelial Cells, UA 0-1 0 - 5 /HPF 11/23/2024 5:51 AM EDT [facility] Bacteria, UA 1+(A) None Seen /HPF 11/23/2024 5:51 AM EDT [facility] Crystals, UA 1+ Ca. Oxalate(A) None Seen /HPF 11/23/2024 5:51 AM EDT [facility] Urine URINE SPECIMEN / Unknown 11/23/2024 5:00 AM EDT 11/23/2024 5:15 AM EDT us Jemima Coffey MD URINE ORDERABLES Final Res ult [facility] [address] [phone] * Lipase (11/23/2024 5:00 AM EDT) Lipase 43.0 13.0 - 60.0 U/L 11/23/2024 5:39 AM EDT [facility] Blood BLOOD SPECIMEN / Unknown 11/23/2024 5:00 AM EDT 11/23/2024 5:11 AM EDT Jemima Coffey MD CHEMISTRY ORDERABLES Final Result [facility] [address] [place] [address], [facility] [phone] * (ABNORMAL) Comprehensive Metabolic Panel w/ Reflex to MG (11/23/2024 5:00 AM EDT) Sodium 140 136 - 145 mmol/L 11/23/2024 5:[address] [facility] Potassium reflex Magnesium 3.7 3.5 - 5.1 mmol/L 11/23/2024 5:28 AM T [facility] Comment: Specimen hemolysis has exceeded the interference as defined by Yinka. Value may be falsely increased. Suggest recollection if clinically indicated. Chloride 100 99 - 110 mmol/L 11/23/2024 5:[address] [facility] CO2 23 21 - 32 mmol/L 11/23/2024 5:[address] [facility] Anion Gap 17(H) 3 - 16 11/23/2024 5:[address] [facility] Glucose 111(H) 70 - 99 mg/dL 11/23/2024 5:[address] [facility] BUN 13 7 - 20 mg/dL 11/23/2024 5:[address] [facility] Creatinine 0.7 0.6 - 1.1 mg/dL 11/23/2024 5:[address] [facility] Est, Glom Filt Rate >90 >60 11/23/2024 5:[address] [facility] Comment: Pediatric calculator link [...] - 10.6 mg/dL 11/23/2024 5:38 AM EDT [facility] Total Protein 7.0 6.4 - 8.2 g/dL 11/23/2024 5:39 AM T [facility] Albumin 4.3 3.4 - 5.0 g/dL 11/23/2024 5:[address] [facility] Albumin/Globulin Ratio 1.6 1.1 - 2.2 11/23/2024 5:39 AM EDT [facility] Total Bilirubin 0.3 0.0 - 1.0 mg/dL 11/23/2024 5:38 AM T [facility] Alkaline Phosphatase 79 40 - 129 U/L 11/23/2024 5:[address] [facility] ALT 13 10 - 40 U/L 11/23/2024 5:[address] [facility] AST 28 15 - 37 U/L 11/23/2024 5:38 AM EDT [facility] Comment: Specimen hemolysis has exceeded the interference as defined by Yinka. Value may be falsely increased. Suggest recollection if clinically indicated. Blood BLOOD SPECIMEN / Unknown 11/23/2024 5:00 AM EDT 11/23/2024 5:11 AM EDT us Jemima Coffey MD CHEMISTRY ORDERABLES Final Result [facility] [address] [place] [address], [facility] [phone] * (ABNORMAL) CBC with Auto Differential (11/23/2024 5:00 AM EDT) WBC 17.0(H) 4.0 - 11.0 K/uL 11/23/2024 5:[address] [facility] RBC 5.00 4.00 - 5.20 M/uL 11/23/2024 5:[address] [facility] Hemoglobin 14.8 12.0 - 16.0 g/dL 11/23/2024 5:[address] [facility] Hematocrit 43.3 36.0 - 48.0 % 11/23/2024 5:[address] [facility] MCV 86.6 80.0 - 100.0 fL 11/23/2024 5:[address] [facility] MCH 29.7 26.0 - 34.0 pg 11/23/2024 5:[address] [facility] MCHC 34.3 31.0 - 36.0 g/dL 11/23/2024 5:[address] [facility] RDW 12.4 12.4 - 15.4 % 11/23/2024 5:[address] [facility] Platelets 213 135 - 450 K/uL 11/23/2024 5:[address] [facility] MPV 8.5 5.0 - 10.5 fL 11/23/2024 5:[address] [facility] PLATELET SLIDE REVIEW Adequate 11/23/2024 7:[address] [facility] SLIDE REVIEW see below 11/23/2024 7:[address] [facility] Comment:Slide review agrees with reported results Neutrophils % 84.0 % 11/23/2024 7:[address] [facility] Lymphocytes % 9.0 % 11/23/2024 7:[address] [facility] Monocytes % 3.0 % 11/23/2024 7:[address] [facility] Eosinophils % 0.0 % 11/23/2024 7:53 AM EDT [facility] Basophils % 0.0 % 11/23/2024 7:53 AM EDT [facility] Neutrophils Absolute 15.0(H) 1.7 - 7.7 K/uL 11/23/2024 7:53 AM EDT [facility] Lymphocytes Absolute 1.5 1.0 - 5.1 K/uL 11/23/2024 7:53 AM EDT [facility] Monocytes Absolute 0.5 0.0 - 1.3 K/uL 11/23/2024 7:53 AM EDT [facility] Eosinophils Absolute 0.0 0.0 - 0.6 K/uL 11/23/2024 7:53 AM EDT [facility] Basophils Absolute 0.0 0.0 - 0.2 K/uL 11/23/2024 7:53 AM EDT [facility] Bands Relative 4 0 - 7 % 11/23/2024 7:53 AM EDT [facility] RBC Morphology Normal 11/23/2024 7:53 AM EDT [facility] Blood BLOOD SPECIMEN / Unknown 11/23/2024 5:00 AM EDT 11/23/2024 5:11 AM EDT Jemima Cofefy MD HEMATOLOGY ORDERABLES Sandi preston Result [facility] [address] [place] [address] documented in this encounter Visit Diagnoses Diagnosis [...] 20 mg, IntraMUSCular, ONCE, 1 dose, On 11/23/24 at 0530 Given 11/23/2024 5:49 AM EDT [...] [id number] (New Bag - Prov ider: Eric Levy RN)1016 (Stopped - Provider: Davis Davis RN) PRN [...] documented as of this encounter Care Teams Store Protection Specialist Relationship Specialty Start Date End Date Taco Miranda MD [address] [place] [address] Dr [place], [place] [address] PCP - General Pediatrics 08/02/21 documented as of this encounter
--- OUTSIDE RECORDS SUMMARY | 2024-11-27 13:42 | XMS_ITS | Referral Summary ---
Author Organization [facility] Address [facility] [place] [address] Care Team Providers Care Auditing Coder Name Role Phone Bessie Martini Primary Care Provider [phone] Social History Tobacco Use Types Packs/Day Years Used Date Smoking Tobacco: Never Assessed Comments Unknown Sex and Gender Information Value Date Recorded Sex Assigned at Not on file Legal Sex Female 4:39 PM EDT Gender Identity Not on file Sexual Orientation Not on file Plan of Treatment Not on file Procedures Procedure Name Priority Date/Time Associated Diagnosis Comments VINNY DIAG RIGHT Routine 11/14/2015 12:17 PM EDT Abnormal mammogram from Last 3 Months or Most Recently Relevant to Health Maintenance Results * MAMMOGRAM RT DIGITAL W CAD (11/14/2015 12:17 PM EDT) Anatomical Region Laterality Modality Chest Right Mammography 11/14/2015 1:01 PM EDT Impressions 11/14/2015 1:03 PM EDT Stable mammographic appearance. Central cyst unchanged. ASSESSMENT: Category BI-RADS: 2: Benign. RECOMMENDATION: Bilateral mammography on schedule. Narrative 11/14/2015 1:03 PM EDT HISTORY: . Follow-up for cyst .Other abnormal and inconclusive findings on diagnostic imaging of breast COMPARISON: 2014. DENSITY: There are scattered fibroglandular densities that could obscure a lesion on mammography. FINDINGS: There is no suspicious mass, microcalcifications, or architectural distortion. No significant new findings. In the region aspirated previously, the spherical density is again present. Appearance is similar to the prior study. There is no architectural distortion or suspicious calcification Procedure Note Ruben Elise MD / Mammography, Provider - 11/14/2015 HISTORY: . Follow-up for cyst .Other abnormal and inconclusivefindings on diagnostic imaging of breast COMPARISON: 2014. DENSITY: There are scattered fibroglandular densities that could obscurea lesion on mammography. FINDINGS: There is no suspicious mass, microcalcifications, or architecturaldistortion. No significant new findings. In the region aspirated previously, the spherical density is againpresent. Appearance is similar to the prior study. There is noarchitectural distortion or suspicious calcification IMPRESSION Stable mammographic appearance. Central cyst unchanged. ASSESSMENT: Category BI-RADS: 2: Benign. RECOMMENDATION: Bilateral mammography on schedule. Bessie Martini DO VINNY Final Result from Last 3 Months or Most Recently Relevant to Health Maintenance Insurance Care Teams Auditing Coder Relationship Specialty Start Date End Date Bessie Martini DO PCP - General Family Medicine 01/19/15
--- OUTSIDE RECORDS SUMMARY | 2024-11-27 13:42 | XMS_ITS | Clinical Summary ---
Author Organization [facility] Address [address] [place] [id number] Care Team Providers Care Manager Trust Name Role Phone Roxanne Michel MD Primary Care Provider [phone] Source Comments This information has been disclosed to you from confidential records protectedfrom disclosure by state law. You shall make no further disclosure of thisinformation without the specific, written, and informed release of theindividual to whom it pertains, or as otherwise permitted by law. A generalauthorization for the release of medical or other information is not sufficientfor the purposes of therelease of HIV test results or diagnoses. [id number] Allergies No known active allergies Medications PROGESTERONE MISC 400 mg. 1 7 Active ARMOUR THYROID 15 mg Tab take one Tablet by mouth every morning on an empty stomach (take with 60mg FOR 75mg total) 1 7 Active ARMOUR THYROID 60 mg Tab take one Tablet by mouth every morning on an empty stomach (take with 15mg FOR 75mg total) 1 7 Active UNABLE TO FIND APPLY TWO CLICKS TOPICALLY TWICE DAILY TO inner THIGHS 0 7 Active Active Problems No known active problems Family History * Patient is adopted Medical History Relation Comments Diabetes Child 1 Diabetes Child 2 Relation Status Comments Child 1 Child 2 Social History Tobacco Use Types Packs/Day Years Used Date Smoking Tobacco: Never Smokeless Tobacco: Never Alcohol Use Standard Drinks/Week Comments Yes 0 (1 standard drink = 0.6 oz pur e alcohol) occ Comments No Sex and Gender Information Value Date Recorded Sex Assigned at Not on file Legal Sex Female 2:23 PM EDT Gender Identity Not on file Sexual Orientation Not on file Last Filed Vital Signs Vital Sign Reading Time Taken Comments Blood Pressure 121/78 10/30/2017 10:05 AM EDT Pulse 65 10/30/2017 10:05 AM EDT Temperature 36.1 C (97 F) 10/30/2017 10:05 AM EDT Respiratory Rate 19 03/08/2016 7:24 PM EDT Oxygen Saturation 98% 04/01/2017 8:30 AM EST Inhaled Oxygen Concentration 98% 04/01/2017 8 :30 AM EST Weight 68 kg (150 lb) 10/30/2017 10:05 AM EDT Height 165.1 cm (5' 5 ) 10/30/2017 10:05 AM EDT Body Mass Index 24.96 10/30/2017 10:05 AM EDT Plan of Treatment Not on file Insurance #[address] [place] [address] [facility] Care Teams Manager Trust Relationship Specialty Start Date End Date Roxanne Michel MD [address] [address] PCP - General Family Medicine 03/06/18
--- OUTSIDE RECORDS SUMMARY | 2024-11-27 13:42 | XMS_ITS | Encounter Summary ---
Author Organization [facility] Address [address] [place] [address] Care Team Providers Care Debt Management Counselor Name Role Phone Taco Miranda MD Primary Care Provider [phone] Encounter Details Date Type Department Care Team (Latest Contact Info) Description 11/23/2024 Travel Social History Tobacco Use Types Packs/Day Years [...] on file documented as of this encounter Functional Status documented as of this encounter Plan of Treatment Not on file documented as of this encounter Visit Diagnoses Not on filedocumented in this encounter Additional Health Concerns Infection Onset Date Last Indicated Resolved Time C-diff Rule Out 11/23/2024 11/23/2024 11/23/2024 8 :20 AM EDT documented as of this encounter Care Teams Debt Management Counselor Relationship Specialty Start Date End Date Taco Miranda MD [address] [place] [address] PCP - General Pediatrics 08/02/21 documented as of this encounter
--- OUTSIDE RECORDS SUMMARY | 2024-11-27 13:42 | XMS_ITS | Clinical Summary ---
Author Organization [place] Address [facility] [place] [address] Care Team Providers Care Tree Puller Name Role Phone Bessie Martini Primary Care Provider [phone] Social History Tobacco Use Types Packs/Day Years Used Date Smoking Tobacco: Never Assessed Comments Unknown Sex and Gender Information Value Date Recorded Sex Assigned at Not on file Legal Sex Female 4:39 PM EDT Gender Identity Not on file Sexual Orientation Not on file Plan of Treatment Health Maintenance Due Date Last Done Comments DTap,Tdap,and Td (1 - Tdap) 1984 Pap Screening 1994 Mammogram Screening 11/13/2016 11/14/2015, 05/18/2015 Colonoscopy 2018 Pneumococcal 50+ (1 of 1 - PCV) 10/18/2023 Shingrix (#1) 10/18/2023 Influenza Vaccine (Season Ended) 2025 RSV Vaccine (60+ or ) (1 - 1-dose 75+ series) 2048 HPV Aged Out No longer eligi ble based on patient's age to complete this topic Meningococcal conjugate courtney nt 4 (MCV4) Aged Out No longer eligible b ased on patient's age to complete this topic RSV Immunization (<20 months) Aged Out No longer eligible based on patient's age to complete this topic Procedures Procedure Name Priority Date/Time Associated Diagnosis [...] Most Recently Relevant to Health Maintenance Insurance [facility] ALL OTHERS NOT MEDICARE Care Teams Tree Puller Relationship Specialty Start Date End Date Bessie Martini DO PCP - General Family Medicine 01/19/15
--- OUTSIDE RECORDS SUMMARY | 2024-11-27 13:43 | XMS_ITS | Continuity of Care Document ---
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 Neurosurgery previously ordered a lumbar x-ray with flexion/extension . The patient has been managing pain conservatively (lumbosacral brace and PT). The patient presents to the clinic today to follow up post-procedure. Not available 10/19/2024 09:05:04 Plan of Treatment Reminders Order Date Submit Date Provider Last Modified By Organization Details Last Modified Time Details Appointments OV EST 15 2024 10:00A M TRUNG SOSA PA-C Not available Not available Not available Lab None recorded . Referral None recorded . Procedures medial branch block, lumbar (PROC) - BLMBB L4-S1 (2nd). [id number] and [id number]. 2024 025 Alcides Iqbal MD, [address], [address], [place], [address], 10/27/2024 15:55:52 Surgeries None recorded . Imaging None recorded . Medication Orders None recorded . Patient TargetsNo targets recorded. Patient Instructions Encounter Date Encounter Id Patient Instructions Last Modified By Organization Details Last Modified Time 10/19/2024 [id number] I have discussed in great detail our potential treatment options which would include a rehabilitative approach to care. This program would include medication management, Physical Therapy, consideration for interventional procedures as appropriate, and lifestyle modification (diet, weight loss, exercise, smoking/tobacco cessation, holistic approach including meditation and yoga). The patient understands and agrees prior to proceeding with this plan. _ __ __ __ __ __ __ __ __ __ __ __ __ __ __ __ __ __ __ __ __ __ __ __ __ __ __ __ _ RECORDS REVIEW: As per clinic policy, we will have the patient sign a release to obtain previous imaging and clinical notes. - PROCEDURE: I counseled the patient extensively and informed of the risks of the procedure, including the risk of paralysis, nerve damage, respiratory arrest, arrhythmias, stroke, weakness, and infection, which although very low, could result in or disability. The patient acknowledged to me that they understand and accept these risks. RN EDUCATION Extensive coordination of care provided by RN to educate patient on upcoming procedure and to coordinate obtaining extensive incoming medical records. _ __ __ __ __ __ __ __ __ __ __ __ __ __ __ __ __ __ __ __ __ __ __ __ __ __ __ __ _ PSYCH: Pain affecting Neuro-psych behavior was discussed. Discussed about pain psychological counseling as a part of the multimodal approach to pain treatment. _ __ __ __ __ __ __ __ __ __ __ __ __ __ __ __ __ __ __ __ __ __ __ __ __ __ __ __ _ REHABILITATION: Discussed with the patient the importance of diet, daily physical activity and PT. Discussed with the patient the need to be scheduled for physical therapy since physical therapy will prolong the benefits of the procedure and interventions. _ __ __ __ __ __ __ __ __ __ __ __ __ __ __ __ __ __ __ __ __ __ __ __ __ __ __ __ _ I have reviewed patient's DAVID report prior to prescribing Schedule II, III, and IV medications that require review by law. Not available 10/19/2024 09:05:05 Reason for Referral None Reported. Problems Name Problem SNOMED Code Status Onset Date Resolution Date Notes Provider Name and Address Organization Details Recorded Time Back problem 097567558 Active 2023 [place] Beardswor th null, [place] - [facility] [place] & [place] 08:40:46 Headache 74757069 Active 2023 [place] Beard[place] null, [place] [facility] [place] & [place] 4 08:40:51 Spinal stenosis of lumbar region 83085701 Active 2023 Jenny Mandel null, [place] [facility] [place] & [place] 4 09:10:13 Inflammation of sacroiliac joint 76047859 Active 2023 Jenny Mandel null, [place] [facility] [place] 4 09:10:20 Myofascial pain 240298572 Active 2023 Jenny Mandel null, [place] [facility] [place] & [place] 4 06:59:33 Degeneration of lumbar intervertebral disc 30733254 Active 2023 Jenny Mandel null, [place] [facility] [place] & [place] 07:02:58 Problem Notes None recorded. 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 Procedure Notes None recorded. Medical Equipment None Reported. Allergies Allergen ID Allergen Name Allergen Category Reaction Reaction Severity Criticality Documentation Date Start Date Code Code System Note Provider Name and Address Organization Details Recorded Time 008087 Zanaflex medicatio n itching moderate Not available 03/12/2024 05383 6 RxNorm [place] [facility], MAKEDA ARIAS [facility] & [place] 08:39:55 Medications Name Sig Start Date Stop Date Status Note LastModified by Organization Details LastModified Time ketoconazol e 2 % shampoo WASH SCALP AND USE FACE WASH TOPICALLY TWO TO THREE TIMES A WEEK FOR FLAKY WASH. LET SIT 5 MINUTES BEFORE RINSING. FOLLOW WITH NORMAL SHAMPOO AND CONDITION ER 03/11 completed Not Available Not Available Not Available tizanidine 4 mg tablet 03/11 completed Not Available Not Available Not Available hydrocodone 5 mg-acetamin ophen 325 mg tablet TAKE 1 TABLET BY MOUTH EVERY 6 HOURS NEEDED FOR PAIN FOR 2 DAYS active Not Available Not Available No t Available fluticasone propionate 0.05 % topical cream APPLY TOPICALLY TO AFFECTED AREAS IN GROIN TWICE A DAY FOR 2 WEEKS, THEN TAKE A BREAK. REPEAT NEEDED active Not Available Not Available No t Available phenazopyri dine 200 mg tablet TAKE 1 TABLET BY MOUTH THREE TIMES DAILY FOR 6 DOSES 03/11 completed Not Available Not Available Not Available metronidazo le 500 mg tablet 03/11 completed Not Available Not Available Not Available sulfamethox azole 800 mg-trimetho prim 160 mg tablet TAKE 1 TABLET BY MOUTH TWICE DAILY 09/08 completed Not Available Not Available Not Available amoxicillin 500 mg tablet TAKE 1 TABLET BY MOUTH THREE TIMES DAILY UNTIL GONE active Not Available Not Available No t Available halobetasol propionate 0.05 % topical ointment APPLY TOPICALLY TO AFFECTED AREAS ON HANDS AND FEET TWICE DAILY FOR UP TO 2 WEEKS. STOP FOR ONE WEEK. WRAP WITH SARANWRAP AFTER APPLICATI ON AT NIGHT. ONLY USE WHEN FLARING active Not Available Not Available No t Available promethazin e 25 mg tablet 04/10 completed Not Available Not Available Not Available verapamil ER (PM) 100 mg capsule 24hr pellet CT,ext.rele ase Take 1 capsule every day by oral route. 09/08 completed Not Available Not Available Not Available scopolamine 1 mg over 3 days transdermal patch 03/11 completed Not Available Not Available Not Available ondansetron 4 mg disintegrat ing tablet DISSOLVE 1 TABLET IN MOUTH EVERY 8 HOURS NEEDED FOR NAUSEA AND VOMITING 04/10 completed Not Available Not Available Not Available cefdinir 300 mg capsule TAKE 1 CAPSULE BY MOUTH EVERY 12 HOURS 03/11 completed Not Available Not Available Not Available pregabalin 50 mg capsule TAKE 1 CAPSULE BY MOUTH ONCE DAILY AT NIGHT 03/11 completed Not Available Not Available Not Available pregabalin 75 mg capsule TAKE 1 CAPSULE BY MOUTH TWICE DAILY 04/22 completed Not Available Not Available Not Available chlorhexidi ne gluconate 0.12 % mouthwash RINSE WITH 15ML FOR 30 SECONDS AND SPIT, USE TWICE DAILY AFTER BRUSHING AND FLOSSING . active Not Available Not Available No t Available Gavilyte-C 240 gram-22.72 gram-6.72 gram-5.84 gram oral solution TAKE 240 ML EVERY 10 MINUTES FOR BOWEL PREP; FOLLOW MAILED INSTRUCTI ONS 03/11 completed Not Available Not Available Not Available Calmoseptin e 0.44 %-20.6 % topical ointment APPLY OINTMENT EXTERNALL Y TO AFFECTED AREA TWICE DAILY 03/11 completed Not Available Not Available Not Available Vitals Date Recorded Body weight Body temperature Oxygen saturation Oxygen saturation in Arterial blood by Pulse oximetry Heart rate Systolic And Diastolic Provider Name and Address Organization Details Last Updated DateTime 5 52528.8 2 g 97 [degF] 99 % 99 % 75 /min 131/63 mm[Hg] Asha Mackenzie [facility] & [place] 5 08:59:01 Social History Question Answer Notes LastModified by Organizat ion Details LastModified Time Tobacco Smoking Status Never Smoker Stephany jay, [facility] & [place] 03/12/2024 08:40:16 Do You Have An Advance Directive? No Information not available 03/12/2024 Are You Blind Or Do You Have Difficulty Seeing? No Information not available 03/12/2024 What Was The Date Of Your Most Recent Tobacco Screening? 03/11/2024 Information not available 03/12/2024 Are You Passively Exposed To Smoke? No Information not available 03/12/2024 Sex: Unknown Functional Status Question Answer Note LastModified by Organizat ion Details LastModified Time Do you use any illicit or recreational drugs? 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 Moderate Information not available 03/12/2024 Mental Status None recorded. Family History Nothing Reported. Medical History Condition Response Headaches Y Back Problems Y Gynecological History Statement/Question Response Abnormal Pap N 07/15/2023 Date of Last Colonoscopy 08/28/2023 Sexually Active? Y Menses Monthly N Current Control Method Hysterectom y Age at Menarche 12 Obstetrics History GPAL:G 0 P 0 0 0 0 Past Encounters Encounter ID Performer Location Encounter Start Date Encounter Closed Date Diagnosis/Indication Diagnosis SNOMED-CT Code Diagnosis ICD10 Code Diagnosis Note [id number] KSENIA JUNE PA-C [facility] [address] [place] [address] 10/07/2024 10:30:17 10/07/2024 11:57:42 Spinal stenosis of lumbar region 56356502 M99.53 M48.061 - The patient is S/P lumbar epidural, which was successful in decreasing low back pain in the short-term .- I have reviewed the lumbar MRI, which revealed a midline disc protrusion at L4-L5; mild diffuse disc bulge and end plate hypertroph y at L5-S1. Degenerati on of lumbar intervertebral disc 50624159 M51.362 Inflammati on of sacroiliac joint 63330538 M46.1 - The patient is S/P (07/01/24) therapeuti c right SI joint injection, which was successful in decreasing right buttock pain by greater than 50%. The patient notes that the procedure failed to entirely target the pain pattern. I'm not convinced that the right SI joint is the greatest contributo r to pain. Lumbar radiculopathy 128 655974 M54.16 - The patient is 2 weeks S/P TFESI at right L5 and S1, which was successful in decreasing radicular pain and symptoms by greater than 50%. Myofascial pain 46559811 9 M79.18 - I think pain is at least partially stemming from trigger points of the musculatur e of the right gluteus medius/min imus and piriformis . It's possible that right-side d sciatica is secondary to right piriformis syndrome. Ischial bursitis 6953806 03 M70.71 - If right buttock pain with radiation posteriorl y down the RLE persists/w orsens, I will likely schedule a right ischial bursa injection. Lumbar spondylosis 28543 0009 M47.816 - The patient complains of non-radicu lar low back pain (worse on the right), which worsens with prolonged standing/w alking. I think pain is at least partially facetogeni c in origin.- The patient has attempted to make lifestyle modificati ons, but pain continues to impede performing ADLs, thereby negatively affecting quality of life. I think the patient is a good candidate for interventi onal treatment, as their pain has been refractory to conservati ve (PT and/or physician- directed at-home exercises/ stretches) and pharmacolo gic approaches .- After a detailed discussion of treatment modalities and the respective risks/bene fits, I will proceed with scheduling a bilateral lumbar medial branch block at L4-S1. If the patient receives significan t (greater than 80% pain relief) benefit in the short-term (at least 6 hours), I will repeat, and if they again receive significan t benefit, I will proceed with scheduling a lumbar RFA. The procedure will be fluoroscop y-guided. [id number] Alcides Iqbal MD [facility] [address] [place] [address] 10/19/2024 08:39:10 10/19/2024 09:00:04 Spinal stenosis of lumbar region 54182086 M99.53 M48.061 - The patient is S/P lumbar epidural, which was successful in decreasing low back pain in the short-term .- I have reviewed the lumbar MRI, which revealed a midline disc protrusion at L4-L5; mild diffuse disc bulge and end plate hypertroph y at L5-S1. Degenerati on of lumbar intervertebral disc 14387727 M51.362 Inflammati on of sacroiliac joint 86853754 M46.1 - The patient is S/P (07/01/24) therapeuti c right SI joint injection, which was successful in decreasing right buttock pain by greater than 50%. The patient notes that the procedure failed to entirely target the pain pattern. I'm not convinced that the right SI joint is the greatest contributo r to pain. Lumbar radiculopathy 128 854267 M54.16 - The patient is S/P TFESI at right L5 and S1 on 09/24/24, which was successful in decreasing radicular pain and symptoms by greater than 50%. Myofascial pain 22644505 9 M79.18 - I think pain is at least partially stemming from trigger points of the musculatur e of the right gluteus medius/min imus and piriformis . It's possible that right-side d sciatica is secondary to right piriformis syndrome. Ischial bursitis 3487914 03 M70.71 - If right buttock pain with radiation posteriorl y down the RLE persists/w orsens, I will likely schedule a right ischial bursa injection following her lumbar RFA. Lumbar spondylosis 19293 0009 M47.816 - The patient complains of non-radicu lar low back pain (worse on the right), which worsens with prolonged standing/w alking. I think pain is at least partially facetogeni c in origin.- The patient has attempted to make lifestyle modificati ons, but pain continues to impede performing ADLs, thereby negatively affecting quality of life. I think the patient is a good candidate for interventi onal treatment, as their pain has been refractory to conservati ve (PT and/or physician- directed at-home exercises/ stretches) and pharmacolo gic approaches .- S/p BLMBB L4-S1 (1st) on 10/13/2024. Patient states she received significan t benefit of >80% reduction in pain for 1 day following her procedure. - Due to the patient receiving significan t (greater than 80% pain relief) benefit in the short-term (1 day) from her 1st block, I will repeat, and if she again receives significan t benefit, I will proceed with scheduling a lumbar RFA. The procedure will be fluoroscop y-guided. 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 Neurosurgery previously ordered a lumbar x-ray with flexion/extension. The patient has been managing pain conservatively (lumbosacral brace and PT). The patient presents to the clinic today to follow up post-procedure. She is S/p BLMBB L4-S1 (1st) on 10/13/2024. Patient states she received significant benefit of >80% reduction in pain for 1 day following her procedure. Today she is again complaining of low back pain which worsens with standing, sitting or walking for long time periods. She also complains of Right mid buttock pain however she would like to address low back pain prior to addressing her Right buttock pain. Patient also endorses bilateral knee pain Right>Left. She states she has had knee pain intermittently for years especially when walking down stairs. She would like to address her knee pain after her low back pain. Today her pain level is 4/10 but it exacerbates to 7/10 with specific movements. TRUNG SOSA, PA-C [address] [facility], [place], [address], [facility] - [place] & [place] 10/19/2024 09:23:34 OBGyn Episode No OBEpisode recorded.
--- OUTSIDE RECORDS SUMMARY | 2024-11-27 13:43 | XMS_ITS | Data Portability ---
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 Neurosurgery previously ordered a lumbar x-ray with flexion/extension . The patient has been managing pain conservatively (lumbosacral brace and PT). 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 Neurosurgery previously ordered a lumbar x-ray with flexion/extension . The patient has been managing pain conservatively (lumbosacral brace and PT). The patient presents to the clinic today to follow up post-procedure. 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 Neurosurgery previously ordered a lumbar x-ray with flexion/extension . The patient has been managing pain conservatively (lumbosacral brace and PT). The patient presents to the clinic today to follow up post-procedure. 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 Neurosurgery previously ordered a lumbar x-ray with flexion/extension . The patient has been managing pain conservatively (lumbosacral brace and PT). -f/u s/p BLMBB L4-S1 2nd [email or web address] Not available 11/02/2024 09:17:29 Plan of Treatment Reminders Order Date Submit Date Provider Last Modified By Organization Details Last Modified Time Details Appointments OV EST 15 2024 10:00A M TRUNG SOSA PA-C Not available Not available Not available Lab None recorded. Referral None recorded. Procedures lumbar radiofreq uency ablation (PROC) - 43496,646 36 BLRF L4-S1 2024 025 moreno Iqbal MD, [address], [address], [place], [address], 11/19/2024 08:58:50 medial branch block, lumbar (PROC) - BLMBB L4-S1 (2nd). [address] and [address]45[address]. 2024 025 denise qIbal MD, [address], [address], [place], [address], 10/27/2024 15:55:52 medial branch block, lumbar (PROC) - Bilateral lumbar medial branch block at L4-S1. 86674 and [address]. 2024 025 denise Iqbal MD, [address], [address], [place], [address], 10/13/2024 16:16:05 injection , transfora navi epidural, lumbar (PROC) - TFESI Right L5 and S1. 54405. 51655 2024 025 moreno Iqbal MD, [address], [address], [place], [address], 09/24/2024 11:02:41 Surgeries None recorded. Imaging None recorded. Medication Orders None recorded. Patient TargetsNo targets recorded. Patient InstructionsNo instructions recorded. Reason for Referral None Reported. Results Created Date Observation Date Name Description Value Unit Range Abnormal Flag Note LastModifiedBy Organization Detail LastModifiedTime 09/16/1901/17/2024 MRI, lumba r spine , w/wo contr ast No observ ation record ed. [email or web address] Not Available 09/15 10:02:55 Result Notes None recorded. Problems Name Problem SNOMED Code Status Onset Date Resolution Date Notes Provider Name and Address Organization Details Recorded Time Back problem 376946274 Active 2023 Stephany Beardswor th null, [place] - [facility] [place] [facility] [place] 4 08:40:46 Headache 35083550 Active 2023 [place] Beardswor th null, [place] [facility] [place] [facility] [place] 4 08:40:51 Spinal stenosis of lumbar region 46152057 Active 2023 Jenny Mandel null, [place] [facility] [place] 4 09:10:13 Inflammation of sacroiliac joint 33007594 Active 2023 Jenny Mandel null, [place] [facility] [place] [facility] [place] 4 09:10:20 Myofascial pain 140073439 Active 2023 Jenny Mandel null, [place] [facility] [place] [facility] [place] 4 06:59:33 Degeneration of lumbar intervertebral disc 20803130 Active 2023 Jenny Mandel null, [place] [facility] [place] [facility] [place] 4 07:02:58 Problem Notes None recorded. Procedures Surgical History Date Name Laterality Status Provider Name and Address Organization Details Recorded Time 025 Thoracolumbar Trigger Point Injection completed TRUNG SOSA PA-C [address], [place], [address], [place] [facility] [place] [facility] [place] 08/14/2024 10:05:05 024 Date of Last Colonoscopy completed Stephany Martins [place] [facility] [place] [facility] [place] 03/12/2024 08:40:04 024 completed Stephany Lakshmi [place] [facility] [place] & [place] 03/12/2024 08:40:04 022 Breast Surgery completed [place] Lakshmi [facility] & [place] 03/12/2024 08:40:21 000 Roller Maker Surgery completed [place] Lakshmi [facility] & [place] 03/12/2024 08:40:21 992 Cholecystectomy completed [place] Lakshmi [facility] & [place] 03/12/2024 08:40:21 Partial hysterectomy completed Sandee [facility] & [place] 06/11/2024 10:40:25 Imaging Results None recorded. Procedure Notes None recorded. Medical Equipment None Reported. Allergies Allergen ID Allergen Name Allergen Category Reaction Reaction Severity Criticality Documentation Date Start Date Code Code System Note Provider Name and Address Organization Details Recorded Time 289572 Zanaflex medicatio n itching moderate Not available 03/12/2024 85661 6 RxNorm [place] Nixonjustyn [facility], [facility] [place] 08:39:55 Medications Name Sig Start Date Stop [...] TAKE 1 TABLET BY MOUTH TWICE DAILY 04/22 /2025 completed Not Available Not Available Not Available [...] Available Not Available Vitals Date Recorded Body temperature Oxygen saturation Oxygen saturation in Arterial blood by Pulse oximetry Heart rate Systolic And Diastolic Provider Name and Address Organization Details Last Updated DateTime 5 98.4 [degF] 99 % 99 % 96 /min 125/81 mm[Hg] [facility] & [place] 5 10:31:11 Date Recorded Body weight Body temperature Oxygen saturation Oxygen saturation in Arterial blood by Pulse oximetry Heart rate Systolic And Diastolic Provider Name and Address Organization Details Last Updated DateTime 5 64852.6 1 g 97.8 [degF] 99 % 99 % 77 /min 106/71 mm[Hg] [facility] & [place] 5 11:17:53 Date Recorded Body weight Body temperature Oxygen saturation Oxygen saturation in Arterial blood by Pulse oximetry Heart rate Systolic And Diastolic Provider Name and Address Organization Details Last Updated DateTime 5 90747.7 3 g 97.1 [degF] 100 % 100 % 72 /min 127/84 mm[Hg] Asha Maldonado [facility] & [place] 5 11:06:35 Date Recorded Body weight Body temperature Oxygen saturation Oxygen saturation in Arterial blood by Pulse oximetry Heart rate Systolic And Diastolic Provider Name and Address Organization Details Last Updated DateTime 5 66344.8 2 g 97 [degF] 99 % 99 % 75 /min 131/63 mm[Hg] Asha Maldonado [facility] & [place] 5 08:59:01 Date Recorded Body weight Body temperature Oxygen saturation Oxygen saturation in Arterial blood by Pulse oximetry Heart rate Systolic And Diastolic Provider Name and Address Organization Details Last Updated DateTime 5 96346.6 g 97.9 [degF] 100 % 100 % 90 /min 131/71 mm[Hg] Stephany Lui MAKEDA KAYCEENT [facility] & [place] 5 10:55:20 Social History Question Answer Notes LastModified by Organizat ion Details LastModified Time Tobacco Smoking Status Never Smoker Stephany Martins [facility] MA[facility] - [facility] & [place] 03/12/2024 08:40:16 Do You Have An Advance [...] SNOMED-CT Code Diagnosis ICD10 Code Diagnosis Note [id number] Alcides Iqbal MD [facility] [address] [facility] [address] [place] [address] 03/12/2024 08:20:03 03/12/2024 09:13:02 Spinal stenosis of lumbar region 98906222 M99.53 M48.061 - Based on the patient's history and physical exam, it appears her pain is likely associated with lumbar stenosis/D DD.- I will proceed with scheduling a LEI L5-S1. This procedure will be fluoroscop y guided.- Lumbar MRI shows midline disc protrusion at L4-5; mild diffuse disc bulge and endplate hypertroph y at L5-S1.- The patient has completed PT and continues at home exercises/ stretches. - I will follow up with the patient 2 weeks post injection. Inflammati on of sacroiliac joint 39643878 M46.1 - If the patient's pain persists post LEI, the plan will be to proceed with a right diagnostic SI joint injection. Myofascial pain 47088548 9 M79.18 Degenerati on of lumbar intervertebral disc 05444052 M51.991 [id number] Alcides Iqbal MD [facility] [address] [place] [address] 04/10/2024 10:18:03 04/10/2024 10:57:29 Spinal stenosis of lumbar region 09853197 M99.53 M48.061 - Based on the patient's history and physical exam, it appears her pain is likely associated with lumbar stenosis/D DD.- Lumbar MRI shows midline disc protrusion at L4-5; mild diffuse disc bulge and end plate hypertroph y at L5-S1.- The patient has completed PT and continues at home exercises/ stretches. - S/p LEI on 03/25/24- short term mild benefit to pain reduction. Patient still with RLE radiculopa thy.- To better address her low back pain with RLE radiculopa thy I will order an Right TFESI L5 and S1. This procedure will be fluoroscop y guided.- I will follow up with the patient 2 weeks post injection. Degenerati on of lumbar intervertebral disc 96877721 M51.362 Inflammati on of sacroiliac joint 42437323 M46.1 - If the patient's pain persists post Right TFESI, the plan will be to proceed with a right diagnostic SI joint injection. Myofascial pain 72657586 9 M79.18 [id number] KSENIA JUNE PA-C [facility] [address] [place] [address] 06/03/2024 13:50:22 06/03/2024 14:35:06 Spinal stenosis of lumbar region 03066274 M99.53 M48.061 - I have reviewed the lumbar MRI, which revealed a midline disc protrusion at L4-L5; mild diffuse disc bulge and end plate hypertroph y at L5-S1. Degenerati on of lumbar intervertebral disc 34354085 M51.362 Inflammati on of sacroiliac joint 62096077 M46.1 - The patient complains of right-side d low back and buttock pain with intermitte nt radicular symptoms of the RLE.- The patient has attempted to make lifestyle [...] fits, I will proceed with scheduling a diagnostic right SI joint injection. If the patient receives significan t (greater than 80% pain relief for at least 6 hours) benefit from a diagnostic injection, I will perform a therapeuti c injection. - If unsuccessf ul, I will likely schedule a TPI of the right gluteus medius/min imus and piriformis . Myofascial pain 97146163 9 M79.18 Lumbar radiculopathy 128 821232 M54.16 - The patient is 6 weeks S/P TFESI at right L5 and S1, which was successful in decreasing radicular symptoms of the RLE. [id number] Alcides Iqbal MD [facility] [address] [facility] [address] [place] [address] 06/23/2024 13:16:38 06/23/2024 13:38:02 Spinal stenosis of lumbar region 90299675 M99.53 M48.061 - I have reviewed the lumbar MRI, which revealed a midline disc protrusion at L4-L5; mild diffuse disc bulge and end plate hypertroph y at L5-S1. Degenerati on of lumbar intervertebral disc 29142013 M51.362 Inflammati on of sacroiliac joint 54935985 M46.1 - The patient complains of right-side d low back and buttock pain with intermitte nt radicular symptoms of the RLE.- The patient has attempted to make lifestyle modificati ons, but pain continues to impede performing ADLs, thereby negatively affecting quality of life. I think the patient is a good candidate for interventi onal treatment, as their pain has been refractory to conservati ve (PT and/or physician- directed at-home exercises/ stretches) and pharmacolo gic approaches .- Based on her history and physical exam findings patients pain is likely due to Right sacroiliit is.- S/p Right SI Dx injection on 06/16/24. Patient states she received significan t benefit (>80% reduction in pain) for approximat ramu one day following her diagnostic injection. - Patient reports after her Dx injection wore off she experience d Right lower back pain, worse than prior to her injection. She continues to complain of right-side d low back and buttock pain with intermitte nt radicular symptoms of the RLE.- Due to the success of her diagnostic Right SI injection I will proceed with a Right SI Tx injection under Fluoroscop y.- Follow up 2 weeks post injection to determine efficacy. Myofascial pain 71745264 9 M79.18 Lumbar radiculopathy 128 077677 M54.16 - The patient is 6 weeks S/P TFESI at right L5 and S1, which was successful in decreasing radicular symptoms of the RLE. [id number] KSENIA JUNE PA-C [facility] [address] [facility] [address] [place] [address] 07/27/2024 10:16:30 07/27/2024 11:13:47 Spinal stenosis of lumbar region 72328570 M99.53 M48.061 - The patient is 4 months S/P lumbar epidural, which was successful in decreasing low back pain in the short-term .- I have reviewed the lumbar MRI, which revealed a midline disc protrusion at L4-L5; mild diffuse disc bulge and end plate hypertroph y at L5-S1. Degenerati on of lumbar intervertebral disc 89955845 M51.362 Inflammati on of sacroiliac joint 44149346 M46.1 Lumbar radiculopathy 128 635802 M54.16 - The patient is 3 months S/P TFESI at right L5 and S1, which was successful in decreasing radicular symptoms of the RLE. Myofascial pain 02407989 9 M79.18 - The patient is nearly 1 month S/P therapeuti c right SI joint injection, which was successful in decreasing right-side d low back and buttock pain by greater than 50%, yet pain remains bothersome . It seems that the procedure was successful in addressing pain being generated from the joint itself.- The patient complains of right buttock pain described as tightness/ spasm with intermitte nt radicular symptoms of the RLE to the knee. I think pain is largely stemming from trigger points of the musculatur e of the right buttock. It's possible that right-side d sciatica is secondary to right piriformis syndrome.- The patient has attempted to make lifestyle [...] fits, I will proceed with scheduling a TPI of the right gluteus medius/min imus and piriformis . [id number] Alcides Iqbal MD [facility] [address] [place] [address] 08/14/2024 09:17:46 08/14/2024 09:48:52 Myofascial pain 285097094 M79.18 [id number] Alcides Iqbal MD [facility] [address] [place] [address] 09/08/2024 10:48:06 09/08/2024 11:15:28 Spinal stenosis of lumbar region 72158603 M99.53 M48.061 - I have reviewed the lumbar MRI, which revealed a midline disc protrusion at L4-L5; mild diffuse disc bulge and end plate hypertroph y at L5-S1.- The patient is S/P lumbar epidural, which was successful in decreasing low back pain in the short-term . Degenerati on of lumbar intervertebral disc 11793440 M51.362 Inflammati on of sacroiliac joint 74220409 M46.1 - The patient complains of right-side d low back and buttock pain with intermitte nt radicular symptoms of the RLE.- The patient has attempted to make lifestyle modificati ons, but pain continues to impede performing ADLs, thereby negatively affecting quality of life. I think the patient is a good candidate for interventi onal treatment, as their pain has been refractory to conservati ve (PT and/or physician- directed at-home exercises/ stretches) and pharmacolo gic approaches .- Based on her history and physical exam findings patients pain is multifacto rial with a portion likely due to Right sacroiliit is.- S/p Right SI Dx injection on 06/16/24. Patient states she received significan t benefit (>80% reduction in pain) for approximat ramu one day following her diagnostic injection. - S/p Therapeuti c right sacroiliac joint injection on 07/01/24. Patient received approximat ramu 80% reduction in pain for 3 weeks following her SI Tx injection. - Discussed SI fusion with patient today in clinic. Further discussed properly identifyin g the source of the patients worst pain (SI vs Lumbar spine).- Patient will be having a repeat TFESI in the near future to differenti ate between Lumbar vs SI for main etiology of Right low back pain with RLE radiculopa thy.- Will follow up post TFESI to determine efficacy and discuss SI fusion if needed. Lumbar radiculopathy 128 390742 M54.16 - The patient is 3 months S/P TFESI at right L5 and S1, which was successful in decreasing radicular symptoms of the RLE.- Patient with Right low back pain and intermitte nt RLE radiculopa thy.- Due to the success of the previous TFESI, I will repeat at the same levels (Right L5 and S1) under fluoroscop y.- I will follow up 2 weeks post procedure. Myofascial pain 59986239 9 M79.18 - The patient complained of right buttock pain described as tightness/ spasm with intermitte nt radicular symptoms of the RLE to the knee. I think pain is largely stemming from trigger points of the musculatur e of the right buttock. It's possible that right-side d sciatica is secondary to right piriformis syndrome.- The patient has attempted to make lifestyle modificati ons, but pain continues to impede performing ADLs, thereby negatively affecting quality of life. I think the patient is a good candidate for interventi onal treatment, as their pain has been refractory to conservati ve (PT and/or physician- directed at-home exercises/ stretches) and pharmacolo gic approaches .- S/p TPI of her Right Gluteus medius, minimus and Piriformis muscles on 08/14/24. Patient states she received >50% reduction in her pain and spasms of her Right buttock region since her injection. She is still complainin g of Right low back pain. [id number] KSENIA JUNE PA-C [facility] [address] [place] [address] 10/07/2024 10:30:17 10/07/2024 11:57:42 Spinal stenosis of lumbar region 75418133 M99.53 M48.061 - The patient is S/P lumbar epidural, which was successful in decreasing low back pain in the short-term .- I have reviewed the lumbar MRI, which revealed a midline disc protrusion at L4-L5; mild diffuse disc bulge and end plate hypertroph y at L5-S1. Degenerati on of lumbar intervertebral disc 99781071 M51.362 Inflammati on of sacroiliac joint 22457472 M46.1 - The patient is S/P (07/01/24) therapeuti c right SI joint injection, which was successful in decreasing right buttock pain by greater than 50%. The patient notes that the procedure failed to entirely target the pain pattern. I'm not convinced that the right SI joint is the greatest contributo r to pain. Lumbar radiculopathy 128 504914 M54.16 - The patient is 2 weeks S/P TFESI at right L5 and S1, which was successful in decreasing radicular pain and symptoms by greater than 50%. Myofascial pain 76274514 9 M79.18 - I think pain is at least partially stemming from trigger points of the musculatur e of the right gluteus medius/min imus and piriformis . It's possible that right-side d sciatica is secondary to right piriformis syndrome. Ischial bursitis 5880674 03 M70.71 - If right buttock pain with radiation posteriorl y down the RLE persists/w orsens, I will likely schedule a right ischial bursa injection. Lumbar spondylosis 46158 0009 M47.816 - The patient complains of [...] RFA. The procedure will be fluoroscop y-guided. [id number] Alcides Iqbal MD [facility] [address] [facility] [address] [place] [address] 10/19/2024 08:39:10 10/19/2024 09:00:04 Spinal stenosis of lumbar region 25507169 M99.53 M48.061 - The patient is S/P lumbar epidural, which was successful in decreasing low back pain in the short-term .- I have reviewed the lumbar MRI, which revealed a midline disc protrusion at L4-L5; mild diffuse disc bulge and end plate hypertroph y at L5-S1. Degenerati on of lumbar intervertebral disc 82486167 M51.362 Inflammati on of sacroiliac joint 08350133 M46.1 - The patient is S/P (07/01/24) therapeuti c right SI joint injection, which was successful in decreasing right buttock pain by greater than 50%. The patient notes that the procedure failed to entirely target the pain pattern. I'm not convinced that the right SI joint is the greatest contributo r to pain. Lumbar radiculopathy 128 745380 M54.16 - The patient is S/P TFESI at right L5 and S1 on 09/24/24, which was successful in decreasing radicular pain and symptoms by greater than 50%. Myofascial pain 15482350 9 M79.18 - I think pain is at least partially stemming from trigger points of the musculatur e of the right gluteus medius/min imus and piriformis . It's possible that right-side d sciatica is secondary to right piriformis syndrome. Ischial bursitis 0965253 03 M70.71 - If right buttock pain with radiation posteriorl y down the RLE persists/w orsens, I will likely schedule a right ischial bursa injection following her lumbar RFA. Lumbar spondylosis 20254 0009 M47.816 - The patient complains of [...] RFA. The procedure will be fluoroscop y-guided. [id number] Alcides Iqbal MD [facility] [address] [facility] [address] [place] [address] 11/04/2024 09:48:27 11/04/2024 11:18:28 Lumbar spondylosis 319722780 M47.816 - Based on the patients history and physical exam, it appears her pain is likely associated with lumbar stenosis/D DD.- 01/17/2024 Lumbar MRI shows midline disc protrusion at L4-5; mild diffuse disc bulge and end plate hypertroph y at L5-S1.- S/p LEI on 03/25/24- short term mild benefit to pain reduction. Patient still with RLE radiculopa thy.- The patient complains of non-radicu lar low [...] pain for 1 day following her procedure. -S/p BLMBB L4-S1 (2nd) on 10/27/24. Patient states she received significan t benefit of >% reduction in pain for day following her procedure. - Due to the patient receiving significan t (greater than 80% pain relief) benefit in the short-term (1 day) from her 2nd and 1st block, I will proceed with scheduling a lumbar RFA. The procedure will be fluoroscop y-guided.- I will follow up with the patient 4 weeks post injection. Myofascial pain 42807855 9 M79.18 Degenerati on of lumbar intervertebral disc 35446027 M51.362 Inflammati on of sacroiliac joint 95773654 M46.1 Health Concerns Section Related Observation LastModified by Organization Detai ls LastModified Time None Recorded Concern Status LastModified by Organization Details LastModified Time None Recorded Advance Directives Directive N: Payers Insurance Date Sequence Insurance Name Policy Number Policy Gudino Covered Member ID Gudino Member ID Guarantor Name 11/17/2024 1 [place] [id number] Sandee Flowers [id number] Sandee Flowers 02/27/2024 1 [employer]) [id number] Sandee Flowers [id number] Sandee Flowers Notes Date Note Type Note Provider Name and Address Organization Details Recorded Time 09/08/2024 text/html 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 Neurosurgery previously ordered a lumbar x-ray with flexion/extension. The patient has been managing pain conservatively (lumbosacral brace and PT). The patient presents to the clinic today to follow up for pain reassessment. She is S/p TPI of her Right Gluteus medius, minimus and Piriformis muscles on 08/14/24. Patient states she received >50% reduction in her pain and spasms of her Right buttock region since her injection. She still endorses Right low back pain with intermittent RLE radiation. She also complains of Right knee pain however she states her pain is manageable at this time. Today the pain level is a 7/10. 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 Neurosurgery previously ordered a lumbar x-ray with flexion/extension. The patient has been managing pain conservatively (lumbosacral brace and PT). The patient presents to the clinic today to follow up post-procedure. The patient is 2 weeks S/P TFESI at right L5 and S1, which was successful in decreasing radicular pain and symptoms by greater than 50%. The patient continues to complain of non-radicular low back pain (worse on the right) and right buttock pain. Today the pain level is a 2/10, but fluctuates higher (6 or more). 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 TRUNG SOSA PA-C [address], [place], [address], [facility] [place] 10/19/2024 09:23:34 11/04/2024 text/html 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 Neurosurgery previously ordered a lumbar x-ray with flexion/extension. The patient has been managing pain conservatively (lumbosacral brace and PT). The patient presents to the clinic today to follow up s/p BLMBB L4-S1 2nd on 10/27/24. Patient states she received significant benefit of 80>% reduction in pain for 6-8 hours following her procedure.She is S/p BLMBB L4-S1 (1st) on 10/13/2024. Patient states she received significant benefit of >80% reduction in pain for 1 day following her procedure. Today her pain level is 4/10 but it exacerbates to 8/10 with specific movements. Alcides Iqbal MD [address], [place], [address], [facility] [place] 11/05/2024 10:35:46 OBGyn Episode No OBEpisode recorded.
--- OUTSIDE RECORDS SUMMARY | 2024-11-27 13:44 | XMS_ITS | Clinical Summary ---
Author Organization [facility] Address [address] [place] [address] Care Team Providers Care Soda Clerk Name Role Phone Taco Miranda MD Primary Care Provider [phone] Allergies Active Allergy Reactions Criticality Noted Date Comments Tizanidine Itching High 01/29/2024 Medications ondansetron (ZOFRAN-ODT) 4 MG disintegrating tablet Take 1 tablet by mouth every 6 hours as needed for Nausea or Vomiting 21 tablet 5 Active dicyclomine (BENTYL) 20 MG tablet Take 1 tablet by mouth 4 times daily for 5 days 20 tablet 5 11/29/19 25 Active Encounters Date Type Department Care Team Description 11/23/2024 4:44 AM EDT - 11/23/2024 11:45 AM EDT Emergency [facility] Emergency Department [address] [place], [place] [id number] Elan Coffey MD Price, Brandon M, MD Enterocolitis (Primary Dx); Nausea vomiting and diarrhea; Pelvic cyst in female; Lactic acidosis Discharge Disposition: Home or Self Care 11/23/2024 Travel from Last 3 Months Social History Tobacco Use Types Packs/Day Years [...] Mass Index 21.63 11/23/2024 5:16 AM EDT Plan of Treatment Health Maintenance Due Date Last Done Comments Depression Screen 1985 HIV screen 1988 Hepatitis C screen 10/18/1991 Hepatitis B vaccine (1 of 3 - 19+ 3-dose series) 1992 Pap smear 1994 Cervical cancer screen 10/18/2003 HPV (without or with Pap) 10/18/2003 Breast cancer screen 2013 Lipids 2013 Colonoscopy 2018 Colorectal Cancer Screen 2018 FIT/FOBT: Average risk 2018 Fecal-DNA (Cologuard): [place] ge risk 2018 Sigmoidoscopy/CT colonography 2018 Pneumococcal 50+ years Vacci ne (1 of 1 - PCV) 10/18/2023 Shingles vaccine (1 of 2) 10/18/2023 COVID-19 Vaccine (1 - 2023-2 5 season) 2024 Flu vaccine (#1) 12/18/2024 04/03/2019 DTaP/Tdap/Td vaccine (2 - Td or Tdap) 08/25/2025 08/26/2015 Hepatitis A vaccine Aged Out No longe r eligible based on patient's age to complete this topic Hib vaccine Aged Out No longer eligi ble based on patient's age to complete this topic Meningococcal (ACWY) vaccine Aged Out No longer eligible based on patient's age to complete this topic Meningococcal B vaccine Aged Out No l onger eligible based on patient's age to complete this topic Polio vaccine Aged Out No longer elig ible based on patient's age to complete this [...] EKG 12-LEAD Routine 11/23/2024 5:00 AM EDT LACTIC ACID STAT 11/23/2024 5:00 AM EDT TROPONIN STAT 11/23/2024 5:00 AM EDT URINALYSIS WITH MICROSCOPIC STAT 11/23/2024 5:00 AM EDT LIPASE STAT 11/23/2024 5:00 AM EDT COMPREHENSIVE METABOLIC PANEL W/ REFLEX TO MG FOR LOW K STAT 11/23/2024 5:00 AM EDT CBC WITH AUTO DIFFERENTIAL STAT 11/23/2024 5:00 AM EDT CULTURE, URINE Add-On 11/23/2024 5:00 AM EDT from Last 3 Months Results * Lactic Acid (11/23/2024 10:27 AM EDT) Only the most recent of3 resultswithin the time period is included. Lactic Acid 1.9 0.4 - 2.0 mmol/L 11/23/2024 10:44 AM EDT [facility] Blood BLOOD SPECIMEN / Unknown 11/23/2024 10:27 AM EDT 11/23/2024 10:27 AM EDT us Rahul Felix MD CHEMISTRY ORDERABLES Final Re sult [facility] [address] [place] [address] * US PELVIS COMPLETE NON-OB TRANSABD/TRANSVAG W [...] normalovarian tissue identified. No free fluid. Hysterectomy. Rahul Felix MD [facility] ORDERABLES Final Resul t * GI Bacterial Pathogens By PCR (11/23/2024 7:20 AM EDT) GI Bacterial Pathogens By PCR No Shigella spp/EIEC DNA detected No Shiga toxin-producing gene(s) detected No Campylobacter spp. (jejuni and coli)DNA detected No Salmonella spp. DNA detected No Vibrio vulnificus/parahae molyticus/cholerae DNA detected No Plesiomonas shigelloides DNA detected No Enterotoxigenic E. coli (ETEC) DNA detected No Yersinia enterocolitica DNA detected Normal Range: None detected [facility] STOOL SPECIMEN / Unknown 11/23/2024 7:20 AM EDT 11/23/2024 7:25 AM EDT [facility] - 11/24/2024 1:58 PM EDT ORDER#: [id number] ORDERED BY: ELAN COFFEY SOURCE: Stool COLLECTED: 11/23/24 07:20 ANTIBIOTICS AT JAMES.: RECEIVED : 11/23/24 07:25 Elan Coffey MD MICROBIOLOGY - GENERAL ORD ERABLES Final Result Performing Organization Address City/[facility]/ZIP Co de Phone Number [facility] [address] [place], [place] [id number] [place] [address] * Clostridium difficile toxin/antigen (11/23/2024 7:20 AM EDT) C.diff Toxin/Antigen Negative for Clostridium difficile antigen and toxin Normal Range: Negative [facility] Stool STOOL SPECIMEN / Unknown 11/23/2024 7:20 AM EDT 11/23/2024 7:24 AM EDT [facility] - 11/23/2024 8:20 AM EDT ORDER#: [id number] ORDERED BY: ELAN COFFEY SOURCE: Stool stool COLLECTED: 11/23/24 07:20 ANTIBIOTICS AT JAMES.: RECEIVED : 11/23/24 07:24 Collect White vial (sterile container) Elan Coffey MD MICROBIOLOGY - GENERAL ORD ERABLES Final Result [facility] [address] [place], [place] [address] [phone] * CT ABDOMEN PELVIS W IV CONTRAST [...] Recommend further evaluation with pelvic ultrasound. us Elan Coffey MD IMG CT ORDERABLES Final Re sult * EKG 12 Lead (11/23/2024 5:00 AM EDT) Ventricular Rate 94 BPM [facility] MUSE Atrial Rate 94 BPM [facility] MUSE P-R Interval 154 ms [facility] MUSE QRS Duration 84 ms [facility] MUSE Q-T Interval 358 ms [facility] MUSE QTc Calculation (Bazett) 447 ms [facility] MUSE P [place] 72 degrees [facility] MUSE R [place] 56 degrees [facility] MUSE T [place] 46 degrees [facility] MUSE Diagnosis Normal sinus rhythmNonspecific ST abnormalityAbnormal ECGWhen compared with ECG of 02-AUG-2021 02:25,No significant change was foundConfirmed by PATRICIA VENTURA MD ([id number]) on 11/23/2024 7:56:06 AM [facility] MUSE 11/23/2024 5:00 AM EDT 11/23/2024 7:56 AM EDT us Elan Coffey MD ECG ORDERABLES Final Resu lt [facility] MUSE * (ABNORMAL) Comprehensive Metabolic Panel w/ Reflex to MG (11/23/2024 5:00 AM EDT) Sodium 140 136 - 145 mmol/L 11/23/2024 5:28 AM EDT [facility] Potassium reflex Magnesium 3.7 3.5 - 5.1 mmol/L 11/23/2024 5:28 AM EDT [facility] Comment: Specimen hemolysis has exceeded the interference as defined by Yinka. Value may be falsely increased. Suggest recollection if clinically indicated. Chloride 100 99 - 110 mmol/L 11/23/2024 5:28 AM [facility] CO2 23 21 - 32 mmol/L 11/23/2024 5:38 AM [facility] Anion Gap 17(H) 3 - 16 11/23/2024 5:38 AM [facility] Glucose 111(H) 70 - 99 mg/dL 11/23/2024 5:39 AM [facility] BUN 13 7 - 20 mg/dL 11/23/2024 5:39 AM [facility] Creatinine 0.7 0.6 - 1.1 mg/dL 11/23/2024 5:39 AM [facility] Est, Glom Filt Rate >90 >60 11/23/2024 5:39 AM [facility] Comment: Pediatric calculator link [...] 8.3 - 10.6 mg/dL 11/23/2024 5:38 AM [facility] Total Protein 7.0 6.4 - 8.2 g/dL 11/23/2024 5:39 AM [facility] Albumin 4.3 3.4 - 5.0 g/dL 11/23/2024 5:38 AM [facility] Albumin/Globulin Ratio 1.6 1.1 - 2.2 11/23/2024 5:39 AM [facility] Total Bilirubin 0.3 0.0 - 1.0 mg/dL 11/23/2024 5:38 AM [facility] Alkaline Phosphatase 79 40 - 129 U/L 11/23/2024 5:38 AM EDT [facility] ALT 13 10 - 40 U/L 11/23/2024 5:38 AM EDT [facility] AST 28 15 - 37 U/L 11/23/2024 5:38 AM EDT [facility] Comment: Specimen hemolysis has exceeded the interference as defined by Yinka. Value may be falsely increased. Suggest recollection if clinically indicated. Blood BLOOD SPECIMEN / Unknown 11/23/2024 5:00 AM EDT 11/23/2024 5:11 AM EDT us Elan Coffey MD CHEMISTRY ORDERABLES Final Result [facility] [address] [place] [address], [facility] [phone] * (ABNORMAL) CBC with Auto Differential (11/23/2024 5:00 AM EDT) WBC 17.0(H) 4.0 - 11.0 K/uL 11/23/2024 5:13 AM EDT [facility] RBC 5.00 4.00 - 5.20 M/uL 11/23/2024 5:13 AM [facility] Hemoglobin 14.8 12.0 - 16.0 g/dL 11/23/2024 5:13 AM T [facility] Hematocrit 43.3 36.0 - 48.0 % 11/23/2024 5:13 AM EDT [facility] MCV 86.6 80.0 - 100.0 fL 11/23/2024 5:13 AM EDT [facility] MCH 29.7 26.0 - 34.0 pg 11/23/2024 5:13 AM EDT [facility] MCHC 34.3 31.0 - 36.0 g/dL 11/23/2024 5:13 AM [facility] RDW 12.4 12.4 - 15.4 % 11/23/2024 5:13 AM [facility] Platelets 213 135 - 450 K/uL 11/23/2024 5:13 AM [facility] MPV 8.5 5.0 - 10.5 fL 11/23/2024 5:13 AM [facility] PLATELET SLIDE REVIEW Adequate 11/23/2024 7:53 AM [facility] SLIDE REVIEW see below 11/23/2024 7:53 AM [facility] Comment:Slide review agrees with reported results Neutrophils % 84.0 % 11/23/2024 7:53 AM [facility] Lymphocytes % 9.0 % 11/23/2024 7:53 AM [facility] Monocytes % 3.0 % 11/23/2024 7:53 AM [facility] Eosinophils % 0.0 % 11/23/2024 7:53 AM [facility] Basophils % 0.0 % 11/23/2024 7:53 AM [facility] Neutrophils Absolute 15.0(H) 1.7 - 7.7 K/uL 11/23/2024 7:53 AM [facility] Lymphocytes Absolute 1.5 1.0 - 5.1 K/uL 11/23/2024 7:53 AM [facility] Monocytes Absolute 0.5 0.0 - 1.3 K/uL 11/23/2024 7:53 AM [facility] Eosinophils Absolute 0.0 0.0 - 0.6 K/uL 11/23/2024 7:53 AM [facility] Basophils Absolute 0.0 0.0 - 0.2 K/uL 11/23/2024 7:53 AM [facility] Bands Relative 4 0 - 7 % 11/23/2024 7:53 AM [facility] RBC Morphology Normal 11/23/2024 7:53 AM [facility] Blood BLOOD SPECIMEN / Unknown 11/23/2024 5:00 AM EDT 11/23/2024 5:11 AM EDT Elan Coffey MD HEMATOLOGY ORDERABLES Sandi l Result [facility] [address] [place] [address] * Troponin (11/23/2024 5:00 AM EDT) Troponin, High Sensitivity <6 0 - 14 ng/L 11/23/2024 5:37 AM EDT [facility] Comment: The high-sensitivity troponin T result should not be compared with other troponin methodologies. Blood BLOOD SPECIMEN / Unknown 11/23/2024 5:00 AM EDT 11/23/2024 5:11 AM EDT Elan Coffey MD CHEMISTRY ORDERABLES Final Result [facility] [address] [place] [address], [facility] [phone] * (ABNORMAL) Urinalysis with Microscopic (11/23/2024 5:00 AM EDT) Color, UA Yellow Straw/Yellow 11/23/2024 5:20 AM EDT [facility] Clarity, UA Clear Clear 11/23/2024 5:20 AM EDT [facility] Glucose, Ur Negative Negative mg/dL 11/23/2024 5:20 AM EDT [facility] Bilirubin, Urine SMALL(A) Negative 11/23/2024 5:20 AM EDT [facility] Ketones, Urine Negative Negative mg/dL 11/23/2024 5:20 AM EDT [facility] Specific [place], UA >=1.030 1.005 - 1.030 11/23/2024 5:20 AM EDT [facility] Blood, Urine MODERATE(A) Negative 11/23/2024 5:20 AM [facility] pH, Urine 5.5 5.0 - 8.0 11/23/2024 5:20 AM [facility] Protein, UA 100(A) Negative mg/dL 11/23/2024 5:20 AM [facility] Urobilinogen, Urine 1.0 <2.0 E.U./dL 11/23/2024 5:20 AM [facility] Nitrite, Urine Negative Negative 11/23/2024 5:20 AM [facility] Leukocyte Esterase, Urine TRACE(A) Negative 11/23/2024 5:20 AM [facility] Microscopic Examination YES 11/23/2024 8:38 AM [facility] Urine Type NotGiven 11/23/2024 5:14 AM [facility] Hyaline Casts, UA 0-2 0 - 2 /LPF 11/23/2024 5:51 AM [facility] Mucus, UA 2+(A) None Seen /LPF 11/23/2024 5:51 AM [facility] WBC, UA 10-20(A) 0 - 5 /HPF 11/23/2024 5:51 AM [facility] RBC, UA 0-2 0 - 4 /HPF 11/23/2024 5:51 AM [facility] Epithelial Cells, UA 0-1 0 - 5 /HPF 11/23/2024 5:51 AM [facility] Bacteria, UA 1+(A) None Seen /HPF 11/23/2024 5:51 AM [facility] Crystals, UA 1+ Ca. Oxalate(A) None Seen /HPF 11/23/2024 5:51 AM [facility] Urine URINE SPECIMEN / Unknown 11/23/2024 5:00 AM EDT 11/23/2024 5:15 AM EDT us Elan Coffey MD URINE ORDERABLES Final Res ult [facility] [address] [place] [address], [facility] [phone] * Culture, Urine (11/23/2024 5:00 AM EDT) Urine Culture, Routine No growth at 18 to 36 hours [facility] Urine URINE SPECIMEN / Unknown 11/23/2024 5:00 AM EDT 11/23/2024 7:44 AM EDT Narrative [facility] - 11/24/2024 7:29 AM EDT ORDER#: [id number] ORDERED BY: ELAN COFFEY SOURCE: Urine Clean Catch COLLECTED: 11/23/24 05:00 ANTIBIOTICS AT JAMES.: RECEIVED : 11/23/24 07:44 Elan Coffey MD MICROBIOLOGY - GENERAL ORD ERABLES Final Result Performing Organization Address City/[facility]/ZIP Co de Phone Number [facility] [address] [place] [address], [facility] [phone] * Lipase (11/23/2024 5:00 AM EDT) Lipase 43.0 13.0 - 60.0 U/L 11/23/2024 5:39 AM EDT [facility] Blood BLOOD SPECIMEN / Unknown 11/23/2024 5:00 AM EDT 11/23/2024 5:11 AM EDT us Elan Coffey MD CHEMISTRY ORDERABLES Final Result [facility] [address] [place] [address], [facility] [phone] from Last [address] [place] [id number] [place] Care Teams Soda Clerk Relationship Specialty Start Date End Date Taco Miranda MD [address] [place] [address] [place] [phone] PCP - General Pediatrics 08/02/21
--- OUTSIDE RECORDS SUMMARY | 2024-11-27 13:44 | XMS_ITS | Continuity of Care Document ---
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 Imaging None recorded. Medication Orders None recorded. Patient TargetsNo targets recorded. Patient InstructionsNo instructions recorded. Reason for Referral None Reported. Problems Name Problem SNOMED Code Status Onset Date Resolution Date Notes Provider Name and Address Organization Details Recorded Time Back problem 952743374 Active 2023 Stephany Aliceawor th null, [place] [facility] [place] [facility] [place] 4 08:40:46 Headache 92085512 Active 2023 Stephany Beardswor th null[place] [facility] [place] 4 08:40:51 Spinal stenosis of lumbar region 24433801 Active 2023 Jenny Mandel null, [place] [facility] [place] [facility] [place] 4 09:10:13 Inflammation of sacroiliac joint 45864492 Active 2023 Jenny Mandel null, [place] [facility] [place] [facility] [place] 4 09:10:20 Myofascial pain 999707247 Active 2023 Jenny Mand[place], [place] [facility] [place] [facility] [place] 4 06:59:33 Degeneration of lumbar intervertebral disc 40098114 Active 2023 Jennychrissy Mandel null, [place] [facility] [place] [facility] [place] 4 07:02:58 Problem Notes None recorded. Procedures Surgical History Date Name Laterality Status Provider Name and Address Organization Details Recorded Time 025 Thoracolumbar Trigger Point Injection completed TRUNG SOSA PA-C [address] [facility], [place], [address], [place] [facility] [place] [facility] [place] 08/14/2024 10:05:05 024 Date of Last Colonoscopy completed Stephany Lakshmi [place] [facility] [place] [facility] [place] 03/12/2024 08:40:04 024 completed Stephany Woodrowjadon [place] [facility] [place] [facility] [place] 03/12/2024 08:40:04 022 Breast Surgery completed Stephany Lakshmi [place] [facility] [place] 03/12/2024 08:40:21 000 Retail Planner Surgery completed Stephany Lakshmi [place] [facility] [place] 03/12/2024 08:40:21 992 Cholecystectomy completed Stephany Maldonado [facility] & [place] 03/12/2024 08:40:21 Partial hysterectomy completed Sandee ARIAS [facility] & [place] 06/11/2024 10:40:25 Imaging Results None recorded. Procedure Notes None recorded. Medical Equipment None Reported. Allergies Allergen ID Allergen Name Allergen Category Reaction Reaction Severity Criticality Documentation Date Start Date Code Code System Note Provider Name and Address Organization Details Recorded Time 238738 Zanaflex medicatio n itching moderate Not available 03/12/2024 57701 6 RxNorm MAKEDA Bruce [facility] & [place] 08:39:55 Medications Name Sig Start Date Stop [...] t Available promethazin e 25 mg tablet 11/22 /2024 completed Not Available Not Available Not Available [...] Address Organization Details Last Updated DateTime 5 00587.6 g 97.9 [degF] 100 % 100 % 90 /min 131/71 mm[Hg] Stephany Poe [facility] & [place] 5 10:55:20 Social History Question Answer Notes LastModified by Organizat ion Details LastModified Time Tobacco Smoking Status Never Smoker Stephany jay, [place] - [facility] & [place] 03/12/2024 08:40:16 Do You Have An Advance Directive? No [email or web address] Information not available 03/12/2024 Are You Blind [...] History Nothing Reported. Medical History Condition Response Back Problems Y Headaches Y Gynecological History Statement/Question Response Abnormal Pap N 07/15/2023 Date of Last Colonoscopy 08/28/2023 Sexually Active? Y Menses Monthly N Current Control Method Hysterectom y Age at Menarche 12 Obstetrics History GPAL:G 0 P 0 0 0 0 Past Encounters Encounter ID Performer Location Encounter Start Date Encounter Closed Date Diagnosis/Indication Diagnosis SNOMED-CT Code Diagnosis ICD10 Code Diagnosis Note [id number] KSENIA JUNE PA-C [facility] [address] [facility] [address] [place] [address] 10/07/2024 10:30:17 10/07/2024 11:57:42 Spinal stenosis of lumbar region 73762853 M99.53 M48.061 - The patient is S/P lumbar epidural, which was successful in decreasing low back pain in the short-term .- I have reviewed the lumbar MRI, which revealed a midline disc protrusion at L4-L5; mild diffuse disc bulge and end plate hypertroph y at L5-S1. Degenerati on of lumbar intervertebral disc 24157102 M51.362 Inflammati on of sacroiliac joint 30884436 M46.1 - The patient is S/P (07/01/24) therapeuti c right SI joint injection, which was successful in decreasing right buttock pain by greater than 50%. The patient notes that the procedure failed to entirely target the pain pattern. I'm not convinced that the right SI joint is the greatest contributo r to pain. Lumbar radiculopathy 128 264660 M54.16 - The patient is 2 weeks S/P TFESI at right L5 and S1, which was successful in decreasing radicular pain and symptoms by greater than 50%. Myofascial pain 99706401 9 M79.18 - I think pain is at least partially stemming from trigger points of the musculatur e of the right gluteus medius/min imus and piriformis . It's possible that right-side d sciatica is secondary to right piriformis syndrome. Ischial bursitis 0892120 03 M70.71 - If right buttock pain with radiation posteriorl y down the RLE persists/w orsens, I will likely schedule a right ischial bursa injection. Lumbar spondylosis 42656 0009 M47.816 - The patient complains of [...] RFA. The procedure will be fluoroscop y-guided. [id number] Alcides Iqbal MD [facility] [address] [facility] [address] [place] [address] 10/19/2024 08:39:10 10/19/2024 09:00:04 Spinal stenosis of lumbar region 04448874 M99.53 M48.061 - The patient is S/P lumbar epidural, which was successful in decreasing low back pain in the short-term .- I have reviewed the lumbar MRI, which revealed a midline disc protrusion at L4-L5; mild diffuse disc bulge and end plate hypertroph y at L5-S1. Degenerati on of lumbar intervertebral disc 57206330 M51.362 Inflammati on of sacroiliac joint 36092958 M46.1 - The patient is S/P (07/01/24) therapeuti c right SI joint injection, which was successful in decreasing right buttock pain by greater than 50%. The patient notes that the procedure failed to entirely target the pain pattern. I'm not convinced that the right SI joint is the greatest contributo r to pain. Lumbar radiculopathy 128 175019 M54.16 - The patient is S/P TFESI at right L5 and S1 on 09/24/24, which was successful in decreasing radicular pain and symptoms by greater than 50%. Myofascial pain 64710505 9 M79.18 - I think pain is at least partially stemming from trigger points of the musculatur e of the right gluteus medius/min imus and piriformis . It's possible that right-side d sciatica is secondary to right piriformis syndrome. Ischial bursitis 2764702 03 M70.71 - If right buttock pain with radiation posteriorl y down the RLE persists/w orsens, I will likely schedule a right ischial bursa injection following her lumbar RFA. Lumbar spondylosis 59520 0009 M47.816 - The patient complains of [...] RFA. The procedure will be fluoroscop y-guided. [id number] Alcides Iqbal MD [facility] [address] [place] [address] 11/04/2024 09:48:27 11/04/2024 11:18:28 Lumbar spondylosis 072409436 M47.816 - Based on the patients history [...] patient 4 weeks post injection. Myofascial pain 53064293 9 M79.18 Degenerati on of lumbar intervertebral disc 67341461 M51.362 Inflammati on of sacroiliac joint 36517768 M46.1 Health Concerns Section Related Observation LastModified by Organization Detai ls LastModified Time None Recorded Concern Status LastModified by Organization Details LastModified Time None Recorded Payers Encounter Date Sequence Insurance Name Policy Number Policy Gudino Covered Member ID Gudino Member ID Guarantor Name 11/04/2024 1 [place] [id number] Sandee Flowers [id number] Sandee Flowers Notes Date Note Type Note Provider Name and Address Organization Details Recorded Time 11/04/2024 text/html 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 Alcides Iqbal MD [address] [facility], [place], [address], [facility] & [place] 11/05/2024 10:35:46 OBGyn Episode No OBEpisode recorded.
--- OUTSIDE RECORDS SUMMARY | 2024-11-27 13:44 | XMS_ITS | Encounter Summary ---
Author Organization [facility] Address [address] [place] [address] Care Team Providers Care Software Engineering Project Manager Name Role Phone Roxanne Michel MD Primary Care Provider [phone] Source Comments This information has been disclosed to you from confidential records protectfrom disclosure by state law. You shall make no further disclosure of thisinformation without the specific, written, and informed release of theindividual to whom it pertains, or as otherwise permitted by law. A generalauthorization for the release of medical or other information is not sufficientfor the purposes of the release of HIV test results or diagnoses. [id number] Reason for Referral * Imaging/Cardiovascular Scan (Routine) - Closed Specialty Diagnoses / Procedures Referred By Contac t Referred To Contact Cardiology Diagnoses SOB (shortness of breath) Palpitations Other chest pain Abnormal ECG Procedures Echo 2D Complete (TTE) Kaleb Leavitt MD Phone: tel: fax: Referral ID Status Reason Start Date Expiration Date Visits Re quested Visits Authorized [id number] Closed 03/07/2018 04/05/2018 1 1 Encounter Details Date Type Department Care Team (Late st Contact Info) Description 03/07/2018 Orders Only [facility] [address] [place] [id number] Kaleb Leavitt MD [address] [place] [address] SOB (shortness of breath) (Primary Dx); Palpitations; Other chest pain; Abnormal ECG Social History Tobacco Use Types Packs/Day Years [...] on file documented as of this encounter Plan of Treatment Not on file documented as of this encounter Results * Echo 2D Complete (TTE) (03/10/2018 11:54 AM EDT) Anatomical Region Laterality Modality Chest Ultrasound 03/10/2018 11:2 5 AM EDT Narrative 03/10/2018 5:23 PM EDT * [facility] Department of Cardiology* [address] [place] [address] Transthoracic Echocardiography Patient: Sandee Flowers MR #: [id number] Account: Study Date: 03/10/2018 Gender: F Age: 42 : 1975 Room: [facility] ATTENDING Kaleb Leavitt MD ORDERING Kaleb Leavitt MD REFERRING Kaleb Leavitt MD PERFORMING [facility] CERTIFIED FINANCIAL PLANNER Selin Whitaker RT, RDMS, RDCS Procedure:ECHO 2D Order:ECHO 2D Accession COMPLETE (TTE) COMPLETE (TTE) Number:[id number] Indications: Shortness of breath 786.05. Study data: Study status: Routine. Procedure: Transthoracic echocardiography. Image quality was good. Scanning was performed from the parasternal, apical, and subcostal acoustic windows. Transthoracic echocardiography. M-mode, complete 2D, complete spectral Doppler, and color Doppler. Birthdate: Patient birthdate: 1975. Age: Patient is 42yr old. Sex: Gender: female. Height: Height: 65in. Height: 65in. Weight: Weight: 149.7lb. Weight: 149.6lb. Body mass index: BMI: 25kg/m^2. Body surface area: BSA: 1.78m^2. Blood pressure: 122/82 Patient status: Outpatient. Study date: Study date: 03/10/2018. Study time: 11:25 AM. Location: Echo laboratory. Study Conclusions - Left ventricle: The cavity size was normal. Wall thickness was normal. Systolic function was normal. The estimated ejection fraction was in the range of 60% to 65%. Wall motion was normal; there were no regional wall motion abnormalities. - Mitral valve: Mild regurgitation. - Right ventricle: Systolic function was normal. - Atrial septum: There was redundancy of the septum. - Pulmonic valve: Peak gradient (S): 2mm Hg. Cardiac Anatomy Left ventricle: - The cavity size was normal. Wall thickness was normal. Systolic function was normal. The estimated ejection fraction was in the range of 60% to 65%. Wall motion was normal; there were no regional wall motion abnormalities. Aortic valve: - Trileaflet; normal thickness leaflets. Mobility was not restricted. Doppler: - Transvalvular velocity was within the normal range. There was no stenosis. No regurgitation. - Peak velocity ratio of LVOT to aortic valve: 0.9. - Mean gradient (S): 3mm Hg. Peak gradient (S): 3mm Hg. Aorta: Aortic root: - The aortic root was normal in size. Mitral valve: - Structurally normal valve. Mobility was not restricted. Doppler: - Transvalvular velocity was within the normal range. There was no evidence for stenosis. Mild regurgitation. - Valve area by pressure half-time: 2.7cm^2. Indexed valve area by pressure half-time: 1.51cm^2/m^2. - Peak gradient (D): 2mm Hg. Left atrium: - The atrium was normal in size. Atrial septum: - There was redundancy of the septum. Right ventricle: - The cavity size was normal. Wall thickness was normal. Systolic function was normal. Systolic pressure was within the normal range. Pulmonic valve: - Poorly visualized. Doppler: - Transvalvular velocity was within the normal range. There was no evidence for stenosis. Mild regurgitation. - Peak gradient (S): 2mm Hg. Tricuspid valve: - Structurally normal valve. Doppler: - Transvalvular velocity was within the normal range. Mild regurgitation. Pulmonary artery: - Systolic pressure was within the normal range. Right atrium: - The atrium was normal in size. Pericardium: - There was no pericardial effusion. Systemic veins: Inferior vena cava: - The vessel was normal in size. The respirophasic diameter changes were in the normal range (>= 50%), consistent with normal central venous pressure. Measurements Left ventricle Value Reference LV ID, ED, PLAX (N) 4.7 cm 3.9 - 5.3 LV ID, ES, PLAX 3.1 cm --------- LV fx shortening, PLAX (N) 35 % 27 - 45 LV mid-wall fx shortening, PLAX (N) 16 % 15 - 23 LV fx shortening, PLAX chordal (N) 35 % 27 - 45 LV PW thickness, ED, PLAX (N) 0.9 cm 0.6 - 0.9 IVS/LV PW ratio, ED, PLAX 1.21 --------- LV end-diastolic volume (N) 104 ml 56 - 104 LV end-systolic volume (N) 28 ml 19 - 49 LV ejection fraction (N) 73 % >=55 LV end-diastolic volume/bsa (N) 59 ml/m^2 35 - 75 LV end-systolic volume/bsa (N) 16 ml/m^2 12 - 30 LV e', lateral 0.12 m/sec --------- LV E/e', lateral 6 --------- LV e', medial 0.082 m/sec --------- LV E/e', medial 9 --------- LV e', average 0.101 m/sec --------- LV E/e', average 7 --------- Ventricular septum Value Reference IVS thickness, ED, PLAX (H) 1.1 cm 0.6 - 0.9 LVOT Value Reference LVOT peak velocity, S 0.83 m/sec --------- Aortic valve Value Reference Aortic valve peak velocity, S 0.9 m/sec --------- Aortic mean gradient, S 3 mm Hg --------- Aortic peak gradient, S 3 mm Hg --------- Velocity ratio, peak, LVOT/AV 0.9 --------- Aorta Value Reference Aortic root ID, ED (N) 3.3 cm <4.0 Left atrium Value Reference LA ID, A-P, ES (N) 3.2 cm 2.7 - 3.8 LA ID/bsa, A-P (N) 1.8 cm/m^2 1.5 - 2.3 Mitral valve Value Reference Mitral E-wave peak velocity 0.71 m/sec --------- Mitral A-wave peak velocity 0.58 m/sec --------- Mitral deceleration time 197 ms --------- Mitral pressure half-time 82 ms --------- Mitral peak gradient, D 2 mm Hg --------- Mitral E/A ratio, peak 1.2 --------- Mitral valve area, PHT, DP 2.7 cm^2 --------- Mitral valve area/bsa, PHT, DP 1.51 cm^2/m^2 --------- Tricuspid valve Value Reference Tricuspid regurg peak velocity 2.1 m/sec --------- Tricuspid peak RV-RA gradient 18 mm Hg --------- Tricuspid maximal regurg velocity, 1.32 m/sec --------- PISA Pulmonic valve Value Reference Pulmonic valve peak velocity, S 1 m/sec --------- Pulmonic peak gradient, S 2 mm Hg --------- Legend: (L) and (H) nilam values outside specified reference range. (N) young values inside specified reference range. Reviewed and confirmed by Kaleb Leavitt MD [id number]:[id number] Procedure Note Kaleb Leavitt MD - 03/10/2018 * [facility] of [facility]* [address] [place] [address] Transthoracic Echocardiography Patient: Sandee Flowers MR #: [id number] Account: Study Date: 03/10/2018 Gender: F Age: 42 : 1975 Room: [facility] ATTENDING Kaleb Leavitt MD ORDERING Kaleb Leavitt MD REFERRING Kaleb Leavitt MD PERFORMING [facility] CERTIFIED FINANCIAL PLANNER Selin Whitaker RT, RDMS, RDCS Procedure:ECHO 2D Order:ECHO 2D Accession COMPLETE (TTE) COMPLETE (TTE) Number:[id number] Indications: Shortness of breath 786.05. Study data: Study status: Routine. Procedure: Transthoracic echocardiography. Image quality was good. Scanning was performed from the parasternal, apical, and subcostal acoustic windows. Transthoracic echocardiography. M-mode, complete 2D, complete spectral Doppler, and color Doppler. Birthdate: Patient birthdate: 1975. Age: Patient is 42yr old. Sex: Gender: female. Height: Height: 65in. Height: 65in. Weight: Weight: 149.7lb. Weight: 149.6lb. Body mass index: BMI: 25kg/m^2. Body surface area: BSA: 1.78m^2. Blood pressure: 122/82 Patient status: Outpatient. Study date: Study date: 03/10/2018. Study time: 11:25 AM. Location: Echo laboratory. Study Conclusions - Left ventricle: The cavity size was normal. Wall thickness was normal. Systolic function was normal. The estimated ejection fraction was in the range of 60% to 65%. Wall motion was normal; there were no regional wall motion abnormalities. - Mitral valve: Mild regurgitation. - Right ventricle: Systolic function was normal. - Atrial septum: There was redundancy of the septum. - Pulmonic valve: Peak gradient (S): 2mm Hg. Cardiac Anatomy Left ventricle: - The cavity size was normal. Wall thickness was normal. Systolic function was normal. The estimated ejection fraction was in the range of 60% to 65%. Wall motion was normal; there were no regional wall motion abnormalities. Aortic valve: - Trileaflet; normal thickness leaflets. Mobility was not restricted. Doppler: - Transvalvular velocity was within the normal range. There was no stenosis. No regurgitation. - Peak velocity ratio of LVOT to aortic valve: 0.9. - Mean gradient (S): 3mm Hg. Peak gradient (S): 3mm Hg. Aorta: Aortic root: - The aortic root was normal in size. Mitral valve: - Structurally normal valve. Mobility was not restricted. Doppler: - Transvalvular velocity was within the normal range. There was no evidence for stenosis. Mild regurgitation. - Valve area by pressure half-time: 2.7cm^2. Indexed valve area by pressure half-time: 1.51cm^2/m^2. - Peak gradient (D): 2mm Hg. Left atrium: - The atrium was normal in size. Atrial septum: - There was redundancy of the septum. Right ventricle: - The cavity size was normal. Wall thickness was normal. Systolic function was normal. Systolic pressure was within the normal range. Pulmonic valve: - Poorly visualized. Doppler: - Transvalvular velocity was within the normal range. There was no evidence for stenosis. Mild regurgitation. - Peak gradient (S): 2mm Hg. Tricuspid valve: - Structurally normal valve. Doppler: - Transvalvular velocity was within the normal range. Mild regurgitation. Pulmonary artery: - Systolic pressure was within the normal range. Right atrium: - The atrium was normal in size. Pericardium: - There was no pericardial effusion. Systemic veins: Inferior vena cava: - The vessel was normal in size. The respirophasic diameter changes were in the normal range (>= 50%), consistent with normal central venous pressure. Measurements Left ventricle Value Reference LV ID, ED, PLAX (N) 4.7 cm 3.9 - 5.3 LV ID, ES, PLAX 3.1 cm --------- LV fx shortening, PLAX (N) 35 % 27 - 45 LV mid-wall fx shortening, PLAX (N) 16 % 15 - 23 LV fx shortening, PLAX chordal (N) 35 % 27 - 45 LV PW thickness, ED, PLAX (N) 0.9 cm 0.6 - 0.9 IVS/LV PW ratio, ED, PLAX 1.21 --------- LV end-diastolic volume (N) 104 ml 56 - 104 LV end-systolic volume (N) 28 ml 19 - 49 LV ejection fraction (N) 73 % >=55 LV end-diastolic volume/bsa (N) 59 ml/m^2 35 - 75 LV end-systolic volume/bsa (N) 16 ml/m^2 12 - 30 LV e', lateral 0.12 m/sec --------- LV E/e', lateral 6 --------- LV e', medial 0.082 m/sec --------- LV E/e', medial 9 --------- LV e', average 0.101 m/sec --------- LV E/e', average 7 --------- Ventricular septum Value Reference IVS thickness, ED, PLAX (H) 1.1 cm 0.6 - 0.9 LVOT Value Reference LVOT peak velocity, S 0.83 m/sec --------- Aortic valve Value Reference Aortic valve peak velocity, S 0.9 m/sec --------- Aortic mean gradient, S 3 mm Hg --------- Aortic peak gradient, S 3 mm Hg --------- Velocity ratio, peak, LVOT/AV 0.9 --------- Aorta Value Reference Aortic root ID, ED (N) 3.3 cm <4.0 Left atrium Value Reference LA ID, A-P, ES (N) 3.2 cm 2.7 - 3.8 LA ID/bsa, A-P (N) 1.8 cm/m^2 1.5 - 2.3 Mitral valve Value Reference Mitral E-wave peak velocity 0.71 m/sec --------- Mitral A-wave peak velocity 0.58 m/sec --------- Mitral deceleration time 197 ms --------- Mitral pressure half-time 82 ms --------- Mitral peak gradient, D 2 mm Hg --------- Mitral E/A ratio, peak 1.2 --------- Mitral valve area, PHT, DP 2.7 cm^2 --------- Mitral valve area/bsa, PHT, DP 1.51 cm^2/m^2 --------- Tricuspid valve Value Reference Tricuspid regurg peak velocity 2.1 m/sec --------- Tricuspid peak RV-RA gradient 18 mm Hg --------- Tricuspid maximal regurg velocity, 1.32 m/sec --------- PISA Pulmonic valve Value Reference Pulmonic valve peak velocity, S 1 m/sec --------- Pulmonic peak gradient, S 2 mm Hg --------- Legend: (L) and (H) nilam values outside specified reference range. (N) young values inside specified reference range. Reviewed and confirmed by Kaleb Leavitt MD [id number]:22:55 us Kaleb Leavitt MD CV ECHO ORDERABLES Final Resul t documented in this encounter Visit Diagnoses Diagnosis SOB (shortness of breath)- Primary Shortness of breath Palpitations Other chest pain Abnormal ECG Nonspecific abnormal electrocardiogram (ECG) (EKG) SOB (shortness of breath) Shortness of breath Palpitations Other chest pain Abnormal ECG Nonspecific abnormal electrocardiogram (ECG) (EKG) documented in this encounter Care Teams Software Engineering Project Manager Relationship Specialty Start Date End Date Roxanne Michel MD [address] [address] PCP - General Family Medicine 03/06/18 documented as of this encounter
--- OUTSIDE RECORDS SUMMARY | 2024-11-27 13:45 | XMS_ITS | Continuity of Care Document ---
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 Neurosurgery previously ordered a lumbar x-ray with flexion/extension . The patient has been managing pain conservatively (lumbosacral brace and PT). The patient presents to the clinic today to follow up post-procedure. Not available 10/08/2024 15:28:51 Plan of Treatment Reminders Order Date Submit Date Provider Last Modified By Organization Details Last Modified Time Details Appointments OV EST 15 2024 10:00A M TRUNG SOSA PA-C Not available Not available Not available Lab None recorded. Referral None recorded. Procedures medial branch block, lumbar (PROC) - Bilateral lumbar medial branch block at L4-S1. 52334 and 22381. 2024 025 [email or web address] Alcides Iqbal MD, [address], [address], [place], [address], 10/13/2024 16:16:05 Surgeries None recorded. Imaging None recorded. Medication Orders None recorded. Patient TargetsNo targets recorded. Patient Instructions Encounter Date Encounter Id Patient Instructions Last Modified By Organization Details Last Modified Time 10/07/2024 [id number] I have discussed in great detail our [...] IV medications that require review by law. [email or web address] Not available 10/08/2024 15:28:01 Reason for Referral None Reported. Results Created Date Observation Date Name Description Value Unit Range Abnormal Flag Note LastModifiedBy Organization Detail LastModifiedTime 09/16/1901/17/2024 MRI, lumba r spine , w/wo contr ast No observ ation record ed. [email or web address] Not Available 09/15 10:02:55 Result Notes None recorded. Problems Name Problem SNOMED Code Status Onset Date Resolution Date Notes Provider Name and Address Organization Details Recorded Time Back problem 500116128 Active 2023 [place] Beardswor th null, [place] - [facility] [place] & [place] 4 08:40:46 Headache 99924834 Active 2023 [place] Beardswor th [place], [place] [facility] [place] 4 08:40:51 Spinal stenosis of lumbar region 22811309 Active 2023 Jenny Mandel null, [place] - [facility] [place] 4 09:10:13 Inflammation of sacroiliac joint 28623844 Active 2023 Jenny Mandel null, [place] - [facility] [place] & [place] 4 09:10:20 Myofascial pain 633476805 Active 2023 Jenny Mandel null, [place] - [facility] [place] & [place] 4 06:59:33 Degeneration of lumbar intervertebral disc 31757996 Active 2023 Jenny Mandel null, [place] - [facility] [place] & [place] 4 07:02:58 Problem Notes None recorded. Procedures Surgical History Date Name Laterality Status Provider Name and Address Organization Details Recorded Time 025 Thoracolumbar Trigger Point Injection completed TRUNG SOSA PA-C [address] [facility], [place], [address], [place] - [facility] - [place] & [place] 08/14/2024 10:05:05 024 Date of Last Colonoscopy completed Stephany Lakshmi [place] - [facility] - [place] & [place] 03/12/2024 08:40:04 024 completed Stephany Lakshmi [facility] - [facility] [place] 03/12/2024 08:40:04 022 Breast Surgery completed [place] Lakshmi ASHFORD - [facility] - [place] & [place] 03/12/2024 08:40:21 000 [employer] Architect Surgery completed [place] Lakshmi ASHFORD - [facility] - [place] & [place] 03/12/2024 08:40:21 992 Cholecystectomy completed [place] Lakshmi Maldonado [facility] - [place] & [place] 03/12/2024 08:40:21 Partial hysterectomy completed Sandee Zamora [place] - [facility] - [place] & [place] 06/11/2024 10:40:25 Imaging Results None recorded. Procedure Notes None recorded. Medical Equipment None Reported. Allergies Allergen ID Allergen Name Allergen Category Reaction Reaction Severity Criticality Documentation Date Start Date Code Code System Note Provider Name and Address Organization Details Recorded Time 230301 Zanaflex medicatio n itching moderate Not available 03/12/2024 91810 6 RxNorm [place] [facility], [place] - [facility] - [place] & [place] 08:39:55 Medications Name Sig Start Date Stop [...] Address Organization Details Last Updated DateTime 5 46222.7 3 g 97.1 [degF] 100 % 100 % 72 /min 127/84 mm[Hg] Asha Mackenzie [facility] & [place] 5 11:06:35 Social History Question Answer Notes LastModified by Organizat ion Details LastModified Time Tobacco Smoking Status Never Smoker Stephany jay, [facility] & [place] 03/12/2024 08:40:16 Do You Have An Advance [...] SNOMED-CT Code Diagnosis ICD10 Code Diagnosis Note [id number] Alcides Iqbal MD [facility] [address] [place] [address] 09/08/2024 10:48:06 09/08/2024 11:15:28 Spinal stenosis of lumbar region 52650344 M99.53 M48.061 - I have reviewed the lumbar MRI, which revealed a midline disc protrusion at L4-L5; mild diffuse disc bulge and end plate hypertroph y at L5-S1.- The patient is S/P lumbar epidural, which was successful in decreasing low back pain in the short-term . Degenerati on of lumbar intervertebral disc 82111520 M51.362 Inflammati on of sacroiliac joint 94373883 M46.1 - The patient complains of right-side [...] SI fusion if needed. Lumbar radiculopathy 128 284189 M54.16 - The patient is 3 months [...] up 2 weeks post procedure. Myofascial pain 11724699 9 M79.18 - The patient complained of [...] complainin g of Right low back pain. [id number] KSENIA JUNE PA-C [facility] [address] [facility] [address] [place] [address] 10/07/2024 10:30:17 10/07/2024 11:57:42 Spinal stenosis of lumbar region 46486459 M99.53 M48.061 - The patient is S/P lumbar epidural, which was successful in decreasing low back pain in the short-term .- I have reviewed the lumbar MRI, which revealed a midline disc protrusion at L4-L5; mild diffuse disc bulge and end plate hypertroph y at L5-S1. Degenerati on of lumbar intervertebral disc 51141261 M51.362 Inflammati on of sacroiliac joint 20506323 M46.1 - The patient is S/P (07/01/24) therapeuti c right SI joint injection, which was successful in decreasing right buttock pain by greater than 50%. The patient notes that the procedure failed to entirely target the pain pattern. I'm not convinced that the right SI joint is the greatest contributo r to pain. Lumbar radiculopathy 128 M54.16 - The patient is 2 weeks S/P TFESI at right L5 and S1, which was successful in decreasing radicular pain and symptoms by greater than 50%. Myofascial pain 81001839 9 M79.18 - I think pain is at least partially stemming from trigger points of the musculatur e of the right gluteus medius/min imus and piriformis . It's possible that right-side d sciatica is secondary to right piriformis syndrome. Ischial bursitis 4963109 03 M70.71 - If right buttock pain with radiation posteriorl y down the RLE persists/w orsens, I will likely schedule a right ischial bursa injection. 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 KSENIA JUNE PA-C [address], [place], [address], [facility] - [place] - [place] & [place] 10/08/2024 15:37:43 OBGyn Episode No OBEpisode recorded.
--- OUTSIDE RECORDS SUMMARY | 2024-11-27 13:45 | XMS_ITS | Encounter Summary ---
Author Organization [facility] Address [address] [place] [address] Care Team Providers Care Senior Director Of Global [employer] Technology Solutions Name Role Phone Roxanne Funez MD Primary Care Provider [phone] Roxanne Michel MD Primary Care Provider Source Comments This information has been disclosed [...] release of HIV test results or diagnoses. [id number] Reason for Referral * Imaging/Cardiovascular Scan (Routine) - Closed Specialty Diagnoses / Procedures Referred By Contac t Referred To Contact Radiology Diagnoses Other chest pain ECG abnormal Procedures NM Myocardial perf stress and rest SPECT Rc Leavitt MD Phone: tel: fax: Referral ID Status Reason Start Date Expiration Date Visits Re quested Visits Authorized [id number] Closed 02/26/2018 03/26/2018 2 2 Encounter Details Date Type Department Care Team (Late st Contact Info) Description 02/21/2018 Orders Only [facility] [address] [place] [id number] Rc Leavitt MD [address] [place] [address] Other chest pain (Primary Dx); ECG abnormal Social History Tobacco Use Types Packs/Day Years [...] documented as of this encounter Results * NM Myocardial perf stress and rest SPECT (03/06/2018 12:10 PM EDT) Anatomical Region Laterality Modality Chest Nuclear Medicine 03/06/2018 8:08 AM EDT Impressions 03/06/2018 4:39 PM EDT IMPRESSION: 1. Normal coronary perfusion. 2. Preserved biventricular global and regional systolic function, with an estimated left ventricular ejection fraction of approx 65%. Report Verified by: RC LEAVITT MD at 03/06/2018 4:39 PM EDT Narrative 03/06/2018 4:39 PM EDT EXAMINATION: NM MYOCARDIAL PERF MULTI SPECT dated 03/06/2018 8:08 AM EDT, (exercise stressed). HISTORY: Dyspnea, Chest pain CLINICAL INDICATION: Chest pain, dyspnea PROCEDURE: 13 millicuries of technetium 99 Myoview injected IV and rest multiplanar SPECT images obtained. The patient then exercised on the treadmill under the supervision of the clinical trial associate. > 85% target heart rate achieved and exercise stopped because of fatigue, achieving target heart rate. At peak exercise, 36.5 millicuries of technetium 99 Myoview injected IV and the patient completed exercise. Post-rest multiplanar SPECT images obtained. Post stress gated SPECT images viewed on the computer monitor. FINDINGS: Normal distribution of radiopharmaceutical in the left ventricular wall. No perfusion defects on stress or rest images. The left ventricular chamber size is normal. Normal left ventricular motion on gated SPECT images. The computer estimated rest left ventricular ejection fraction is 65%. The End Diastolic Volume was 88 mL and End Systolic Volume was 31 mL. The Transient Ischemic Dilation ratio was 0.98 which is normal. Right ventricular perfusion is normal. Right ventricular size is normal. The EKG Stress portion is reported on a separate document. Procedure Note Rc Leavitt MD - 03/06/2018 EXAMINATION: NM MYOCARDIAL PERF MULTI SPECT dated 03/06/2018 8:08 AM EDT,(exercise stressed). HISTORY: Dyspnea, Chest pain CLINICAL INDICATION: Chest pain, dyspnea PROCEDURE: 13 millicuries of technetium 99 Myoview injected IV and rest multiplanarSPECT images obtained. The patient then exercised on the treadmill underthe supervision of the clinical trial associate. > 85% target heart rate achieved andexercise stopped because of fatigue, achieving target heart rate. At peakexercise, 36.5 millicuries of technetium 99 Myoview injected IV and thepatient completed exercise. Post-rest multiplanar SPECT images obtained.Post stress gated SPECT images viewed on the computer monitor. FINDINGS: Normal distribution of radiopharmaceutical in the left ventricular wall.No perfusion defects on stress or rest images. The left ventricularchamber size is normal. Normal left ventricular motion on gated SPECTimages. The computer estimated rest left ventricular ejection fraction is 65%.The End Diastolic Volume was 88 mL and End Systolic Volume was 31 mL. TheTransient Ischemic Dilation ratio was 0.98 which is normal. Right ventricular perfusion is normal. Right ventricular size isnormal. The EKG Stress portion is reported on a separate document. IMPRESSION: 1. Normal coronary perfusion. 2. Preserved biventricular global and regional systolic function, with anestimated left ventricular ejection fraction of approx 65%. Report Verified by: RC LEAVITT MD at 03/06/2018 4:39 PM EDT cR Leavitt MD IMG NM ORDERABLES Final Result documented in this encounter Visit Diagnoses Diagnosis Other chest pain- Primary ECG abnormal Nonspecific abnormal electrocardiogram (ECG) (EKG) Other chest pain ECG abnormal Nonspecific abnormal electrocardiogram (ECG) (EKG) Other chest pain ECG abnormal Nonspecific abnormal electrocardiogram (ECG) (EKG) documented in this encounter Care Teams Senior Director Of [employer] Technology Solutions Relationship Specialty Start Date End Date Roxanne Funez MD [address] [place] [address] PCP - General Family Medicine 03/28/17 03/05/18 Roxanne Michel MD [address] [address] PCP - General Family Medicine 03/06/18 documented as of this encounter
--- OUTSIDE RECORDS SUMMARY | 2024-11-27 13:45 | XMS_ITS | Encounter Summary ---
Author Organization [facility] Address [address] [place] [address] Care Team Providers Care Swimming Pool Salesperson Name Role Phone Roxanne Funez MD Primary Care Provider [phone] Roxanne Michel MD Primary Care Provider [phone] Source Comments This information has been disclosed [...] release of HIV test results or diagnoses. [id number] Health Encounter Details Date Type Department Care Team (Late st Contact Info) Description 04/01/2017 Orders Only [facility] Outreach Lab Test Referral Center [address] [place] [address] Argelia Landon STD exposure (Primary Dx) Social History Tobacco Use Types Packs/Day Years [...] documented as of this encounter Results * Chlamydia / Gonorrhoeae DNA Swab (04/01/2017 9:18 PM EST) Chlamydia Trachomatis DNA Swab Negative Negative 04/02/2017 2:22 PM EST [facility] Neisseria gonorrhoeae DNA Swab Negative Negative 04/02/2017 2:22 PM EST [facility] Comment: The presence of Chlamydia trachomatis and Neisseria gonorrhoeae DNA is detected by a U.S. Food and Drug Administration-approved amplification assay. Although performance of this test on male urethral swabs has not been approved by the FDA, the performance characterisitics for testing these samples have been determined by the [facility]. The laboratory is regulated under the Clinical Laboratory Improvement Act of 1988 (CLIA-88) as qualified to perform high-complexity laboratory testing. This test is used for clinical purposes; it should not be regarded as investigational or for research. Swab (specimen) CERVIX UTERI STRUCTURE / Unknown 04/01/2017 9:18 PM EST 04/01/2017 9:19 PM EST us Jerome Cox MD BODY FLUIDS AND STOOLS ORDERABLE S Final Result [facility] [address] documented in this encounter Visit Diagnoses Diagnosis STD exposure- Primary documented in this encounter Care Teams Swimming Pool Salesperson Relationship Specialty Start Date End Date Roxanne Funez MD [address] [place] [address] PCP - General Family Medicine 03/28/17 03/05/18 Roxanne Michel MD [address] [address] PCP - General Family Medicine 03/06/18 documented as of this encounter
== END 2024-11-26 23:59 | disposition home or self-care (01) ==
LOC: LAB.DROPOF 11-27 13:41
PROVIDERS: PCP Nurse Practitioner Family; Visit Provider Nurse Practitioner Family
DX: R80.9 Proteinuria, unspecified (principal)
CPT/HCPCS: 87086

== ENCOUNTER 2024-12-15 15:33 | Outpatient (CLI) | payer OTHER, SELFPAY ==
--- OUTSIDE RECORDS SUMMARY | 2024-11-23 04:44 | XMS_ITS | Encounter Summary ---
Author Organization [facility] Address [address], [address] [place] [address] Care Team Providers Care Stereotyper Helper Name Role Phone Taco Miranda MD Primary Care Provider [phone] Reason for Visit * Reason Comments Abdominal Pain Patient states she a te chipolte tonight and vomiting started after eating and now she has liquid diarrhea. Encounter Details Date Type Department Care Team (Late st Contact Info) Description 11/23/2024 4:44 AM EDT - 11/23/2024 11:45 AM EDT Emergency [facility] Emergency Department [address] [place] [address] Jemima Coffey MD [address] [place] [address] Rahul Felix MD [address] [place] [address] Enterocolitis (Primary Dx); Nausea vomiting [...] for any worsening symptoms. Follow-up with your fundraising specialist for outpatient ultrasound of pelvic cyst with recommended repeat ultrasound in 6 months per radiologist but talk to your fundraising specialist to see if anything sooner is needed. [...] be sent through Care Everywhere. * Colitis (Filipino) documented in this encounter Medications at Time [...] - 2.0 mmol/L 11/23/2024 10:44 AM EDT [facility] Blood BLOOD SPECIMEN / Unknown 11/23/2024 10:27 AM EDT 11/23/2024 10:27 AM EDT us Rahul Felix MD CHEMISTRY ORDERABLES Final Re sult [facility] [address] [phone] * US PELVIS COMPLETE NON-OB TRANSABD/TRANSVAG W [...] free fluid. Hysterectomy. us Rahul Felix MD [facility] [place] ORDERABLES Final Resul t * (ABNORMAL) Lactic Acid (11/23/2024 7:40 AM EDT) Lactic Acid 3.2(H) 0.4 - 2.0 mmol/L 11/23/2024 7:56 AM EDT [facility] Blood BLOOD SPECIMEN / Unknown 11/23/2024 7:40 AM EDT 11/23/2024 7:40 AM EDT Jemima Coffey MD CHEMISTRY ORDERABLES Final Result [facility] [address] [place] [address], [facility] [phone] * GI Bacterial Pathogens By PCR (11/23/2024 7:20 AM EDT) Pathologist [facility] GI Bacterial Pathogens By PCR No Shigella spp/EIEC DNA detected No Shiga toxin-producing gene(s) detected No Campylobacter spp. (jejuni and coli)DNA detected No Salmonella spp. DNA detected No Vibrio vulnificus/parahae molyticus/cholerae DNA detected No Plesiomonas shigelloides DNA detected No Enterotoxigenic E. coli (ETEC) DNA detected No Yersinia enterocolitica DNA detected Normal Range: None detected [facility] STOOL SPECIMEN / Unknown 11/23/2024 7:20 AM EDT 11/23/2024 7:25 AM EDT Narrative [facility] - 11/24/2024 1:58 PM EDT ORDER#: [id number] ORDERED BY: JEMIMA COFFEY SOURCE: Stool COLLECTED: 11/23/24 07:20 ANTIBIOTICS AT JAMES.: RECEIVED : 11/23/24 07:25 Jemima Coffey MD MICROBIOLOGY - GENERAL ORD ERABLES Final Result [facility] [address] [place] [address], [facility] [phone] * Clostridium difficile toxin/antigen (11/23/2024 7:20 AM EDT) C.diff Toxin/Antigen Negative for Clostridium difficile antigen and toxin Normal Range: Negative [facility] Stool STOOL SPECIMEN / Unknown 11/23/2024 7:20 AM EDT 11/23/2024 7:24 AM EDT Narrative [facility] - 11/23/2024 8:20 AM EDT ORDER#: [id number] ORDERED BY: JEMIMA COFFEY SOURCE: Stool stool COLLECTED: 11/23/24 07:20 ANTIBIOTICS AT JAMES.: RECEIVED : 11/23/24 07:24 Collect White vial (sterile container) Jemima Coffey MD MICROBIOLOGY - GENERAL ORD ERABLES Final Result [facility] [address] [place] [address], [facility] [phone] * CT ABDOMEN PELVIS W IV CONTRAST [...] Calculation (Bazett) 447 ms SW[facility] MUSE P [place] 72 degrees SW[facility] MUSE R [place] 56 degrees SW[facility] MUSE T [place] 46 degrees [facility] MUSE Diagnosis Normal sinus rhythmNonspecific ST abnormalityAbnormal ECGWhen compared with ECG of 02-AUG-2021 02:25,No significant change was foundConfirmed by PATRICIA VENTURA MD ([id number]) on 11/23/2024 7:56:06 AM NATALIE MUSE 11/23/2024 5:00 AM EDT 11/23/2024 7:56 AM EDT Jemima Coffey MD ECG ORDERABLES Final Resu lt Performing Organization Address City/[facility]/ZIP Co de Phone Number NATALIE [facility] * Culture, Urine (11/23/2024 5:00 AM EDT) Urine Culture, Routine No growth at 18 to 36 hours [facility] Urine URINE SPECIMEN / Unknown 11/23/2024 5:00 AM EDT 11/23/2024 7:44 AM EDT Narrative [facility] - 11/24/2024 7:29 AM EDT ORDER#: [id number] ORDERED BY: JEMIMA COFFEY SOURCE: Urine Clean Catch COLLECTED: 11/23/24 05:00 ANTIBIOTICS AT JAMES.: RECEIVED : 11/23/24 07:44 Jemima Coffey MD MICROBIOLOGY - GENERAL ORD ERABLES Final Result Performing Organization Address [facility] Co de Phone Number [facility] [address] [phone] * (ABNORMAL) Lactic Acid (11/23/2024 5:00 AM EDT) Lactic Acid 2.5(H) 0.4 - 2.0 mmol/L 11/23/2024 5:36 AM EDT [facility] Blood BLOOD SPECIMEN / Unknown 11/23/2024 5:00 AM EDT 11/23/2024 5:16 AM EDT Jemima Coffey MD CHEMISTRY ORDERABLES Final Result Performing Organization Address City/[facility]/ZIP Co de Phone Number [facility] [address] [place] [address] * Troponin (11/23/2024 5:00 AM EDT) [facility] Troponin, High Sensitivity <6 0 - 14 ng/L 11/23/2024 5:37 AM EDT [facility] Comment: The high-sensitivity troponin T result should not be compared with other troponin methodologies. Blood BLOOD SPECIMEN / Unknown 11/23/2024 5:00 AM EDT 11/23/2024 5:11 AM EDT us Jemima Coffey MD CHEMISTRY ORDERABLES Final Result [facility] [address] [place] [address] * (ABNORMAL) Urinalysis with Microscopic (11/23/2024 5:00 AM EDT) Pathologist [facility] Color, UA Yellow Straw/Yellow 11/23/2024 5:20 AM EDT [facility] Clarity, UA Clear Clear 11/23/2024 5:20 AM EDT [facility] Glucose, Ur Negative Negative mg/dL 11/23/2024 5:20 AM EDT [facility] Bilirubin, Urine SMALL(A) Negative 11/23/2024 5:20 AM EDT [facility] Ketones, Urine Negative Negative mg/dL 11/23/2024 5:20 AM EDT [facility] Specific [place], UA >=1.030 1.005 - 1.030 11/23/2024 5:20 AM EDT [facility] Blood, Urine MODERATE(A) Negative 11/23/2024 5:[facility] pH, Urine 5.5 5.0 - 8.0 11/23/2024 5:20 AM EDT [facility] Protein, UA 100(A) Negative mg/dL 11/23/2024 5:20 AM EDT [facility] Urobilinogen, Urine 1.0 <2.0 E.U./dL 11/23/2024 5:20 AM EDT [facility] Nitrite, Urine Negative Negative 11/23/2024 5:20 AM EDT [facility] Leukocyte Esterase, Urine TRACE(A) Negative 11/23/2024 5:20 AM EDT [facility] Microscopic Examination YES 11/23/2024 8:38 AM EDT [facility] Urine Type NotGiven 11/23/2024 5:14 AM EDT [facility] Hyaline Casts, UA 0-2 0 - 2 /LPF 11/23/2024 5:51 AM EDT [facility] Mucus, UA 2+(A) None Seen /LPF 11/23/2024 5:51 AM EDT [facility] WBC, UA 10-20(A) 0 - 5 /HPF 11/23/2024 5:51 AM EDT [facility] RBC, UA 0-2 0 - 4 /HPF 11/23/2024 5:51 AM EDT [facility] Epithelial Cells, UA 0-1 0 - 5 /HPF 11/23/2024 5:51 AM EDT [facility] Bacteria, UA 1+(A) None Seen /HPF 11/23/2024 5:51 AM EDT [facility] Crystals, UA 1+ Ca. Oxalate(A) None Seen /HPF 11/23/2024 5:51 AM EDT [facility] Urine URINE SPECIMEN / Unknown 11/23/2024 5:00 AM EDT 11/23/2024 5:15 AM EDT us Jemima Coffey MD URINE ORDERABLES Final Res ult [facility] [address] [place] [address] * Lipase (11/23/2024 5:00 AM EDT) Lipase 43.0 13.0 - 60.0 U/L 11/23/2024 5:39 AM EDT [facility] Blood BLOOD SPECIMEN / Unknown 11/23/2024 5:00 AM EDT 11/23/2024 5:11 AM EDT Jemima Coffey MD CHEMISTRY ORDERABLES Final Result [facility] [address] [place] [address], [facility] [phone] * (ABNORMAL) Comprehensive Metabolic Panel w/ Reflex to MG (11/23/2024 5:00 AM EDT) Sodium 140 136 - 145 mmol/L 11/23/2024 5:28 AM EDT [facility] Potassium reflex Magnesium 3.7 3.5 - 5.1 mmol/L 11/23/2024 5:28 AM T [facility] Comment: Specimen hemolysis has exceeded the interference as defined by Yinka. Value may be falsely increased. Suggest recollection if clinically indicated. Chloride 100 99 - 110 mmol/L 11/23/2024 5:28 AM T [facility] CO2 23 21 - 32 mmol/L 11/23/2024 5:38 AM [facility] Anion Gap 17(H) 3 - 16 11/23/2024 5:38 AM T [facility] Glucose 111(H) 70 - 99 mg/dL 11/23/2024 5:39 AM T [facility] BUN 13 7 - 20 mg/dL 11/23/2024 5:39 AM [facility] Creatinine 0.7 0.6 - 1.1 mg/dL 11/23/2024 5:39 AM [facility] Est, Glom Filt Rate >90 >60 11/23/2024 5:39 AM T [facility] Comment: Pediatric calculator link https://www.kidney.org/professionals/kdoqi/gfr_calculatorped Effective [...] - 10.6 mg/dL 11/23/2024 5:38 AM EDT [facility] Total Protein 7.0 6.4 - 8.2 g/dL 11/23/2024 5:39 AM EDT [facility] Albumin 4.3 3.4 - 5.0 g/dL 11/23/2024 5:38 AM [facility] Albumin/Globulin Ratio 1.6 1.1 - 2.2 11/23/2024 5:39 AM EDT [facility] Total Bilirubin 0.3 0.0 - 1.0 mg/dL 11/23/2024 5:38 AM EDT [facility] Alkaline Phosphatase 79 40 - 129 U/L 11/23/2024 5:38 AM T [facility] ALT 13 10 - 40 U/L 11/23/2024 5:38 AM T [facility] AST 28 15 - 37 U/L 11/23/2024 5:38 AM EDT [facility] Comment: Specimen hemolysis has exceeded the interference as defined by Yinka. Value may be falsely increased. Suggest recollection if clinically indicated. Blood BLOOD SPECIMEN / Unknown 11/23/2024 5:00 AM EDT 11/23/2024 5:11 AM EDT us Jemima Coffey MD CHEMISTRY ORDERABLES Final Result [facility] [address] [place] [address], [facility] [phone] * (ABNORMAL) CBC with Auto Differential (11/23/2024 5:00 AM EDT) WBC 17.0(H) 4.0 - 11.0 K/uL 11/23/2024 5:13 AM [facility] RBC 5.00 4.00 - 5.20 M/uL 11/23/2024 5:13 AM [facility] Hemoglobin 14.8 12.0 - 16.0 g/dL 11/23/2024 5:13 AM [facility] Hematocrit 43.3 36.0 - 48.0 % 11/23/2024 5:13 AM [facility] MCV 86.6 80.0 - 100.0 fL 11/23/2024 5:13 AM [facility] MCH 29.7 26.0 - 34.0 pg 11/23/2024 5:13 AM [facility] MCHC 34.3 31.0 - 36.0 g/dL 11/23/2024 5:13 AM [facility] RDW 12.4 12.4 - 15.4 % 11/23/2024 5:13 AM [facility] Platelets 213 135 - 450 K/uL 11/23/2024 5:13 AM [facility] MPV 8.5 5.0 - 10.5 fL 11/23/2024 5:13 AM [facility] PLATELET SLIDE REVIEW Adequate 11/23/2024 7:53 AM [facility] SLIDE REVIEW see below 11/23/2024 7:53 AM [facility] Comment:Slide review agrees with reported results Neutrophils % 84.0 % 11/23/2024 7:53 AM [facility] Lymphocytes % 9.0 % 11/23/2024 7:53 AM [facility] Monocytes % 3.0 % 11/23/2024 7:53 AM [facility] Eosinophils % 0.0 % 11/23/2024 7:53 AM EDT [facility] Basophils % 0.0 % 11/23/2024 7:53 AM EDT [facility] Neutrophils Absolute 15.0(H) 1.7 - 7.7 K/uL 11/23/2024 7:53 AM EDT [facility] Lymphocytes Absolute 1.5 1.0 - 5.1 K/uL 11/23/2024 7:53 AM EDT [facility] Monocytes Absolute 0.5 0.0 - 1.3 K/uL 11/23/2024 7:53 AM EDT [facility] Eosinophils Absolute 0.0 0.0 - 0.6 K/uL 11/23/2024 7:53 AM EDT [facility] Basophils Absolute 0.0 0.0 - 0.2 K/uL 11/23/2024 7:53 AM EDT [facility] Bands Relative 4 0 - 7 % 11/23/2024 7:53 AM EDT [facility] RBC Morphology Normal 11/23/2024 7:53 AM EDT [facility] Blood BLOOD SPECIMEN / Unknown 11/23/2024 5:00 AM EDT 11/23/2024 5:11 AM EDT Jemima Coffey MD HEMATOLOGY ORDERABLES Sandi preston Result [facility] [address] [place] [address] documented in this encounter Visit Diagnoses Diagnosis [...] documented as of this encounter Care Teams Stereotyper Helper Relationship Specialty Start Date End Date Taco Miranda MD [address] [place] [address] [place] [phone] PCP - General Pediatrics 08/02/21 documented as of this encounter
--- OUTSIDE RECORDS SUMMARY | 2024-12-15 15:35 | XMS_ITS | Referral Summary ---
Author Organization [facility] Address [facility] [place] [address] Care Team Providers Care Social Insurance Administrator Name Role Phone Bessie Martini Primary Care Provider [phone] Social History Tobacco Use Types Packs/Day Years [...] Relevant to Health Maintenance Insurance Care Teams Social Insurance Administrator Relationship Specialty Start Date End Date Bessie Martini DO PCP - General Family Medicine 01/19/15
--- OUTSIDE RECORDS SUMMARY | 2024-12-15 15:35 | XMS_ITS | Encounter Summary ---
Author Organization [facility] Address [address] [facility], [address] [place] [address] Care Team Providers Care Telecommunications Technician Name Role Phone Taco Miranda MD Primary Care Provider [phone] Encounter Details Date Type Department Care Team [...] documented as of this encounter Care Teams Telecommunications Technician Relationship Specialty Start Date End Date Taco Miranda MD [address] [place] [address] PCP - General Pediatrics 08/02/21 documented as of this encounter
--- OUTSIDE RECORDS SUMMARY | 2024-12-15 15:36 | XMS_ITS | Clinical Summary ---
Author Organization [facility] Address [address] [place] [address] Care Team Providers Care Philosophy Lecturer Name Role Phone Roxanne Michel MD Primary Care Provider [phone] Source Comments This information has been disclosed [...] therelease of HIV test results or diagnoses. [id number] Allergies No known active allergies Medications [...] of Treatment Not on file Insurance [address] [place] [address] [facility] Care Teams Philosophy Lecturer Relationship Specialty Start Date End Date Roxanne Michel MD [address] [address] PCP - General Family Medicine 03/06/18
--- OUTSIDE RECORDS SUMMARY | 2024-12-15 15:36 | XMS_ITS | Clinical Summary ---
Author Organization [facility] Address [facility] [place] [address] Care Team Providers Care Incident Commander Name Role Phone Bessie Martini Primary Care Provider [phone] Social History Tobacco Use Types Packs/Day Years [...] PCV) 10/18/2023 Shingrix (#1) 10/18/2023 Influenza Vaccine (#1) 2025 RSV Vaccine (60+ or ) (1 [...] Most Recently Relevant to Health Maintenance Insurance [facility] OTHERS NOT MEDICARE Care Teams Incident Commander Relationship Specialty Start Date End Date Bessie Martini DO PCP - General Family Medicine 01/19/15
--- OUTSIDE RECORDS SUMMARY | 2024-12-15 15:36 | XMS_ITS | Continuity of Care Document ---
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 Referral None recorded . Procedures medial branch block, lumbar (PROC) - BLMBB L4-S1 (2nd). 75061 and 49851. 2024 025 [email or web address] Alcides Iqbal MD, [address] [facility], [place], [address], 10/27/2024 15:55:52 Surgeries None recorded . Imaging None recorded . Medication Orders None recorded . Patient TargetsNo targets recorded. Patient Instructions Encounter Date Encounter Id Patient Instructions Last Modified By Organization Details Last Modified Time 10/19/2024 [id number] I have discussed in great detail our [...] Address Organization Details Recorded Time Back problem 006277810 Active 2023 [place] Beardswor th null, [place] - [facility] [place] & [place] 4 08:40:46 Headache 10907225 Active 2023 [place] Beard[place], [place] [facility] [place] 4 08:40:51 Spinal stenosis of lumbar region 75699331 Active 2023 Jenny Mandel null, [place] [facility] [place] 4 09:10:13 Inflammation of sacroiliac joint 88799334 Active 2023 Jenny Mandel [place], [place] [facility] [place] 4 09:10:20 Myofascial pain 583441190 Active 2023 Jenny Mandel [place], [place] [facility] [place] 4 06:59:33 Degeneration of lumbar intervertebral disc 79971312 Active 2023 Jenny Mandel [place], [place] [facility] [place] 4 07:02:58 Problem Notes None recorded. Procedures Surgical History Date Name Laterality Status Provider Name and Address Organization Details Recorded Time 025 Thoracolumbar Trigger Point Injection completed TRUNG SOSA PA-C [address] , [place], [address], [place] [facility] [place] 08/14/2024 10:05:05 024 Date of Last Colonoscopy completed Stephany Martins [place] - [facility] [place] & [place] 03/12/2024 08:40:04 024 completed [place] Lakshmi [facility] & [place] 03/12/2024 08:40:04 022 Breast Surgery completed Stephany Lakshmi [facility] & [place] 03/12/2024 08:40:21 000 Physician Industrial Surgery completed [place] Lakshmi [facility] & [place] 03/12/2024 08:40:21 992 Cholecystectomy completed Stephany Lakshmi [facility] & [place] 03/12/2024 08:40:21 Partial hysterectomy completed Sandee ARI[facility] & [place] 06/11/2024 10:40:25 Imaging Results None recorded. Procedure Notes None recorded. Medical Equipment None Reported. Allergies Allergen ID Allergen Name Allergen Category Reaction Reaction Severity Criticality Documentation Date Start Date Code Code System Note Provider Name and Address Organization Details Recorded Time 501176 Zanaflex medicatio n itching moderate Not available 03/12/2024 95157 6 RxNorm Stephany Lui [facility], MAKEDA ARIAS [facility] & [place] 08:39:55 Medications Name Sig Start Date Stop [...] Address Organization Details Last Updated DateTime 5 07057.8 2 g 97 [degF] 99 % 99 % 75 /min 131/63 mm[Hg] Asha Mackenzie [facility] & [place] 5 08:59:01 Social History Question Answer Notes LastModified by Organizat ion Details LastModified Time Tobacco Smoking Status Never Smoker Stephany jay, [facility] & [place] 03/12/2024 08:40:16 Do You Have An Advance [...] SNOMED-CT Code Diagnosis ICD10 Code Diagnosis Note [id number] KSENIA JUNE PA-C [facility] [address] [place] [address] 10/07/2024 10:30:17 10/07/2024 11:57:42 Spinal stenosis of lumbar region 25807885 M99.53 M48.061 - The patient is S/P lumbar epidural, which was successful in decreasing low back pain in the short-term .- I have reviewed the lumbar MRI, which revealed a midline disc protrusion at L4-L5; mild diffuse disc bulge and end plate hypertroph y at L5-S1. Degenerati on of lumbar intervertebral disc 41656110 M51.362 Inflammati on of sacroiliac joint 82892891 M46.1 - The patient is S/P (07/01/24) therapeuti c right SI joint injection, which was successful in decreasing right buttock pain by greater than 50%. The patient notes that the procedure failed to entirely target the pain pattern. I'm not convinced that the right SI joint is the greatest contributo r to pain. Lumbar radiculopathy 128 011220 M54.16 - The patient is 2 weeks S/P TFESI at right L5 and S1, which was successful in decreasing radicular pain and symptoms by greater than 50%. Myofascial pain 46056928 9 M79.18 - I think pain is at least partially stemming from trigger points of the musculatur e of the right gluteus medius/min imus and piriformis . It's possible that right-side d sciatica is secondary to right piriformis syndrome. Ischial bursitis 7162644 03 M70.71 - If right buttock pain with radiation posteriorl y down the RLE persists/w orsens, I will likely schedule a right ischial bursa injection. Lumbar spondylosis 04379 0009 M47.816 - The patient complains of [...] RFA. The procedure will be fluoroscop y-guided. [id number] Alcides Iqbal MD [facility] [address] [place] [address] 10/19/2024 08:39:10 10/19/2024 09:00:04 Spinal stenosis of lumbar region 72289851 M99.53 M48.061 - The patient is S/P lumbar epidural, which was successful in decreasing low back pain in the short-term .- I have reviewed the lumbar MRI, which revealed a midline disc protrusion at L4-L5; mild diffuse disc bulge and end plate hypertroph y at L5-S1. Degenerati on of lumbar intervertebral disc 31965567 M51.362 Inflammati on of sacroiliac joint 90418299 M46.1 - The patient is S/P (07/01/24) therapeuti c right SI joint injection, which was successful in decreasing right buttock pain by greater than 50%. The patient notes that the procedure failed to entirely target the pain pattern. I'm not convinced that the right SI joint is the greatest contributo r to pain. Lumbar radiculopathy 128 374927 M54.16 - The patient is S/P TFESI at right L5 and S1 on 09/24/24, which was successful in decreasing radicular pain and symptoms by greater than 50%. Myofascial pain 88251237 9 M79.18 - I think pain is at least partially stemming from trigger points of the musculatur e of the right gluteus medius/min imus and piriformis . It's possible that right-side d sciatica is secondary to right piriformis syndrome. Ischial bursitis 2132570 03 M70.71 - If right buttock pain with radiation posteriorl y down the RLE persists/w orsens, I will likely schedule a right ischial bursa injection following her lumbar RFA. Lumbar spondylosis 59024 0009 M47.816 - The patient complains of [...] Gudino Member ID Guarantor Name 10/19/2024 1 [place] [id number] Sandee Flowers [id number] Sandee Flowers OBGyn Episode No OBEpisode recorded.
--- OUTSIDE RECORDS SUMMARY | 2024-12-15 15:36 | XMS_ITS | Data Portability ---
Author Organization [place] - [facility] [place] & [facility] ADMIN Address [address] [place] [address] Care Team Providers Care Marketing Communications Specialist Name Role Phone 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 Neurosurgery previously ordered a lumbar x-ray with flexion/extension . The patient has been managing pain conservatively (lumbosacral brace and PT). 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 Neurosurgery previously ordered a lumbar x-ray with flexion/extension . The patient has been managing pain conservatively (lumbosacral brace and PT). The patient presents to the clinic today to follow up post-procedure. 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 Neurosurgery previously ordered a lumbar x-ray with flexion/extension . The patient has been managing pain conservatively (lumbosacral brace and PT). The patient presents to the clinic today to follow up post-procedure. 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 53371 and 37572. 2024 025 denise Iqbal MD, [address], [address], [place], [address], 10/27/2024 15:55:52 medial branch block, lumbar (PROC) - Bilateral lumbar medial branch block at L4-S1. 68253 and 82401. 2024 025 deinse Iqbal MD, [address], [address], [place], [address], 10/13/2024 16:16:05 injection , transfora navi epidural, lumbar (PROC) - TFESI Right L5 and S1. 20638. 93293 2024 025 moreno Iqbal MD, [address], [address], [place], [address], 09/24/2024 11:02:41 Surgeries None recorded. Imaging None recorded. Medication Orders None recorded. Patient TargetsNo targets recorded. Patient InstructionsNo instructions recorded. Reason for Referral None Reported. Results Created Date Observation Date Name Description Value Unit Range Abnormal Flag Note LastModifiedBy Organization Detail LastModifiedTime 09/16/1901/17/2024 MRI, lumba r spine , w/wo contr ast No observ ation record ed. Not Available 09/15 10:02:55 Result Notes None recorded. Problems Name Problem SNOMED Code Status Onset Date Resolution Date Notes Provider Name and Address Organization Details Recorded Time Back problem 345081645 Active 2023 Stephany Beardswor th null, [place] [facility] [place] & [place] 4 08:40:46 Headache 12561613 Active 2023 Stephany Beardswor th null, [place] [facility] [place] & [place] 4 08:40:51 Spinal stenosis of lumbar region 45184864 Active 2023 Jenny Mandel null, [place] [facility] [place] 4 09:10:13 Inflammation of sacroiliac joint 93811907 Active 2023 Jenny Mandel null, [place] [facility] [place] 4 09:10:20 Myofascial pain 420532779 Active 2023 Jenny Mandel [place] [facility] [place] 4 06:59:33 Degeneration of lumbar intervertebral disc 81709042 Active 2023 Jenny Mandel null, [place] [facility] [place] & [place] 4 07:02:58 Problem Notes None recorded. Procedures Surgical History Date Name Laterality Status Provider Name and Address Organization Details Recorded Time 025 Thoracolumbar Trigger Point Injection completed TRUNG SOSA PA-C [address] , [place], [address], [place] [facility] [place] & [place] 08/14/2024 10:05:05 024 Date of Last Colonoscopy completed Stephany Martins [place] [facility] [place] & [place] 03/12/2024 08:40:04 024 completed Stephany Lakshmi [place] [facility] [place] & [place] 03/12/2024 08:40:04 022 Breast Surgery completed [place] Lakshmi [facility] & [place] 03/12/2024 08:40:21 000 Lay Out Technician Surgery completed [place] Lakshmi ARI[facility] & [place] 03/12/2024 08:40:21 992 Cholecystectomy completed [place] Lakshmi [facility] & [place] 03/12/2024 08:40:21 Partial hysterectomy completed Sandee [facility] & [place] 06/11/2024 10:40:25 Imaging Results None recorded. Procedure Notes None recorded. Medical Equipment None Reported. Allergies Allergen ID Allergen Name Allergen Category Reaction Reaction Severity Criticality Documentation Date Start Date Code Code System Note Provider Name and Address Organization Details Recorded Time 206766 Zanaflex medicatio n itching moderate Not available 03/12/2024 75591 6 RxNorm [place] Lui [facility], MAKEDA ARIAS [facility] & [place] 08:39:55 Medications Name Sig Start Date Stop [...] % 99 % 96 /min 125/81 mm[Hg] [facility] & [place] 5 10:31:11 Date Recorded Body weight Body temperature Oxygen saturation Oxygen saturation in Arterial blood by Pulse oximetry Heart rate Systolic And Diastolic Provider Name and Address Organization Details Last Updated DateTime 5 38972.6 1 g 97.8 [degF] 99 % 99 % 77 /min 106/71 mm[Hg] Stephany Lui MAKEDA - [facility] & [place] 5 11:17:53 Date Recorded Body weight Body temperature Oxygen saturation Oxygen saturation in Arterial blood by Pulse oximetry Heart rate Systolic And Diastolic Provider Name and Address Organization Details Last Updated DateTime 5 98393.7 3 g 97.1 [degF] 100 % 100 % 72 /min 127/84 mm[Hg] Asha [facility]ORD [facility] & [place] 5 11:06:35 Date Recorded Body weight Body temperature Oxygen saturation Oxygen saturation in Arterial blood by Pulse oximetry Heart rate Systolic And Diastolic Provider Name and Address Organization Details Last Updated DateTime 5 52800.8 2 g 97 [degF] 99 % 99 % 75 /min 131/63 mm[Hg] Asha ASHFORD [facility] & [place] 5 08:59:01 Date Recorded Body weight Body temperature Oxygen saturation Oxygen saturation in Arterial blood by Pulse oximetry Heart rate Systolic And Diastolic Provider Name and Address Organization Details Last Updated DateTime 5 51443.6 g 97.9 [degF] 100 % 100 % 90 /min 131/71 mm[Hg] Stephany Lui MAKEDA [facility] & [place] 5 10:55:20 Social History Question Answer Notes LastModified by Organizat ion Details LastModified Time Tobacco Smoking Status Never Smoker Stephany Martins [facility] [place] - [facility] & [place] 03/12/2024 08:40:16 Do You Have An Advance [...] SNOMED-CT Code Diagnosis ICD10 Code Diagnosis Note [id number] Alcides Iqbal MD [facility] [address] [place] [address] 03/12/2024 08:20:03 03/12/2024 09:13:02 Spinal stenosis of lumbar region 01140646 M99.53 M48.061 - Based on the patient's [...] post injection. Inflammati on of sacroiliac joint 17417461 M46.1 - If the patient's pain persists post LEI, the plan will be to proceed with a right diagnostic SI joint injection. Myofascial pain 78343514 9 M79.18 Degenerati on of lumbar intervertebral disc 99293178 M51.255 [id number] Alcides Iqbal MD [facility] [address] [place] [address] 04/10/2024 10:18:03 04/10/2024 10:57:29 Spinal stenosis of lumbar region 10040956 M99.53 M48.061 - Based on the patient's [...] injection. Degenerati on of lumbar intervertebral disc 38250201 M51.362 Inflammati on of sacroiliac joint 43467406 M46.1 - If the patient's pain persists post Right TFESI, the plan will be to proceed with a right diagnostic SI joint injection. Myofascial pain 42018244 9 M79.18 [id number] KSENIA JUNE PA-C [facility] [address] [place] [address] 06/03/2024 13:50:22 06/03/2024 14:35:06 Spinal stenosis of lumbar region 50939171 M99.53 M48.061 - I have reviewed the lumbar MRI, which revealed a midline disc protrusion at L4-L5; mild diffuse disc bulge and end plate hypertroph y at L5-S1. Degenerati on of lumbar intervertebral disc 84012541 M51.362 Inflammati on of sacroiliac joint 43338089 M46.1 - The patient complains of right-side [...] medius/min imus and piriformis . Myofascial pain 37108863 9 M79.18 Lumbar radiculopathy 128 180930 M54.16 - The patient is 6 weeks S/P TFESI at right L5 and S1, which was successful in decreasing radicular symptoms of the RLE. [id number] Alcides Iqbal MD [facility] [address] [facility] [address] [place] [address] 06/23/2024 13:16:38 06/23/2024 13:38:02 Spinal stenosis of lumbar region 72101546 M99.53 M48.061 - I have reviewed the lumbar MRI, which revealed a midline disc protrusion at L4-L5; mild diffuse disc bulge and end plate hypertroph y at L5-S1. Degenerati on of lumbar intervertebral disc 93923586 M51.362 Inflammati on of sacroiliac joint 36739233 M46.1 - The patient complains of right-side [...] post injection to determine efficacy. Myofascial pain 51102770 9 M79.18 Lumbar radiculopathy 128 417288 M54.16 - The patient is 6 weeks S/P TFESI at right L5 and S1, which was successful in decreasing radicular symptoms of the RLE. [id number] KSENIA JUNE PA-C [facility] [address] [facility] [address] [place] [address] 07/27/2024 10:16:30 07/27/2024 11:13:47 Spinal stenosis of lumbar region 43157859 M99.53 M48.061 - The patient is 4 months S/P lumbar epidural, which was successful in decreasing low back pain in the short-term .- I have reviewed the lumbar MRI, which revealed a midline disc protrusion at L4-L5; mild diffuse disc bulge and end plate hypertroph y at L5-S1. Degenerati on of lumbar intervertebral disc 10927910 M51.362 Inflammati on of sacroiliac joint 19412308 M46.1 Lumbar radiculopathy 128 335513 M54.16 - The patient is 3 months S/P TFESI at right L5 and S1, which was successful in decreasing radicular symptoms of the RLE. Myofascial pain 90922343 9 M79.18 - The patient is nearly [...] right gluteus medius/min imus and piriformis . [id number] Alcides Iqbal MD [facility] [address] [place] [address] 08/14/2024 09:17:46 08/14/2024 09:48:52 Myofascial pain 152320360 M79.18 [id number] Alcides Iqbal MD [facility] [address] [place] [address] 09/08/2024 10:48:06 09/08/2024 11:15:28 Spinal stenosis of lumbar region 59498380 M99.53 M48.061 - I have reviewed the lumbar MRI, which revealed a midline disc protrusion at L4-L5; mild diffuse disc bulge and end plate hypertroph y at L5-S1.- The patient is S/P lumbar epidural, which was successful in decreasing low back pain in the short-term . Degenerati on of lumbar intervertebral disc 19647498 M51.362 Inflammati on of sacroiliac joint 03144071 M46.1 - The patient complains of right-side [...] SI fusion if needed. Lumbar radiculopathy 128 858910 M54.16 - The patient is 3 months [...] up 2 weeks post procedure. Myofascial pain 73646193 9 M79.18 - The patient complained of [...] complainin g of Right low back pain. [id number] KSENIA JUNE PA-C [facility] [address] [place] [address] 10/07/2024 10:30:17 10/07/2024 11:57:42 Spinal stenosis of lumbar region 82090917 M99.53 M48.061 - The patient is S/P lumbar epidural, which was successful in decreasing low back pain in the short-term .- I have reviewed the lumbar MRI, which revealed a midline disc protrusion at L4-L5; mild diffuse disc bulge and end plate hypertroph y at L5-S1. Degenerati on of lumbar intervertebral disc 08650413 M51.362 Inflammati on of sacroiliac joint 41784410 M46.1 - The patient is S/P (07/01/24) therapeuti c right SI joint injection, which was successful in decreasing right buttock pain by greater than 50%. The patient notes that the procedure failed to entirely target the pain pattern. I'm not convinced that the right SI joint is the greatest contributo r to pain. Lumbar radiculopathy 128 429809 M54.16 - The patient is 2 weeks S/P TFESI at right L5 and S1, which was successful in decreasing radicular pain and symptoms by greater than 50%. Myofascial pain 26572551 9 M79.18 - I think pain is at least partially stemming from trigger points of the musculatur e of the right gluteus medius/min imus and piriformis . It's possible that right-side d sciatica is secondary to right piriformis syndrome. Ischial bursitis 2003415 03 M70.71 - If right buttock pain with radiation posteriorl y down the RLE persists/w orsens, I will likely schedule a right ischial bursa injection. Lumbar spondylosis 63479 0009 M47.816 - The patient complains of [...] RFA. The procedure will be fluoroscop y-guided. [id number] Alcides Iqbal MD [facility] [address] [place] [address] 10/19/2024 08:39:10 10/19/2024 09:00:04 Spinal stenosis of lumbar region 70677214 M99.53 M48.061 - The patient is S/P lumbar epidural, which was successful in decreasing low back pain in the short-term .- I have reviewed the lumbar MRI, which revealed a midline disc protrusion at L4-L5; mild diffuse disc bulge and end plate hypertroph y at L5-S1. Degenerati on of lumbar intervertebral disc 23180690 M51.362 Inflammati on of sacroiliac joint 63783722 M46.1 - The patient is S/P (07/01/24) therapeuti c right SI joint injection, which was successful in decreasing right buttock pain by greater than 50%. The patient notes that the procedure failed to entirely target the pain pattern. I'm not convinced that the right SI joint is the greatest contributo r to pain. Lumbar radiculopathy 128 774998 M54.16 - The patient is S/P TFESI at right L5 and S1 on 09/24/24, which was successful in decreasing radicular pain and symptoms by greater than 50%. Myofascial pain 70463532 9 M79.18 - I think pain is at least partially stemming from trigger points of the musculatur e of the right gluteus medius/min imus and piriformis . It's possible that right-side d sciatica is secondary to right piriformis syndrome. Ischial bursitis 9209745 03 M70.71 - If right buttock pain with radiation posteriorl y down the RLE persists/w orsens, I will likely schedule a right ischial bursa injection following her lumbar RFA. Lumbar spondylosis 77388 0009 M47.816 - The patient complains of [...] RFA. The procedure will be fluoroscop y-guided. [id number] Alcides Iqbal MD [facility] [address] [place] [address] 11/04/2024 09:48:27 11/04/2024 11:18:28 Lumbar spondylosis 207187014 M47.816 - Based on the patients history [...] patient 4 weeks post injection. Myofascial pain 01443106 9 M79.18 Degenerati on of lumbar intervertebral disc 46330203 M51.362 Inflammati on of sacroiliac joint 65910041 M46.1 Health Concerns Section Related Observation LastModified by Organization Detai ls LastModified Time None Recorded Concern Status LastModified by Organization Details LastModified Time None Recorded Advance Directives Directive N: Payers Insurance Date Sequence Insurance Name Policy Number Policy Gudino Covered Member ID Gudino Member ID Guarantor Name 11/30/2024 1 [place] [id number] Sandee Stamper [id number] Sandee Stamper 02/27/2024 1 [employer]) [id number] Sandee Stamper [id number] Sandee Stamper OBGyn Episode No OBEpisode recorded.
--- NOTE | 2024-12-15 15:37 | MM_ITS ---
PROCEDURE INFORMATION: Exam: MG Bilateral Screening 3D Mammography Exam date and time: 12/15/2024 3:59 PM Age: 49 years old Clinical indication: Screening examination. Her paternal grandmother breast cancer. TECHNIQUE: Imaging protocol: Bilateral Screening tomosynthesis and 2D mammography including computer-aided detection (CAD) when performed. COMPARISON: 1. MG MM DIG MAMM DX UNILAT LT CAD 07/15/2023 2:03 PM 2. MG MM DIG SCREENING MAMM BI W/CAD 07/01/2023 3:36 PM 3. MG BILATERAL DIGITAL SCREENING MAMMOGRAM WITH TOMOSYNTHESIS 07/13/2021 10:15 AM 4. US BREAST LT COMPLETE 07/15/2023 2:59 PM FINDINGS: MAMMOGRAPHY: Breast composition: The breasts are almost entirely fatty. Mass: No suspicious mass. Architectural distortion: None. Calcifications: No suspicious calcifications. Asymmetric density: No developing asymmetry. Skin thickening: None. Axillary adenopathy: None. IMPRESSION: No mammographic evidence of malignancy. Annual screening is recommended unless otherwise clinically indicated. ASSESSMENT: BI-RADS Category 1: Negative.
--- OUTSIDE RECORDS SUMMARY | 2024-12-15 15:37 | XMS_ITS | Encounter Summary ---
Author Organization [facility] Address [address] [place] [address] Care Team Providers Care Gauge Machine Operator Name Role Phone Roxanne Funez MD Primary Care Provider [phone] Roxanne Michel MD Primary Care Provider [phone] Source Comments This information has been disclosed [...] release of HIV test results or diagnoses. [id number] Reason for Referral * Imaging/Cardiovascular Scan (Routine) - Closed Specialty Diagnoses / Procedures Referred By Contac t Referred To Contact Radiology Diagnoses Other chest pain ECG abnormal Procedures NM Myocardial perf stress and rest SPECT Rc Leavitt MD Phone: tel: fax: Referral ID Status Reason Start Date Expiration Date Visits Re quested Visits Authorized [id number] Closed 02/26/2018 03/26/2018 2 2 Encounter Details Date Type Department Care Team (Late st Contact Info) Description 02/21/2018 Orders Only [facility] [address] [place] [phone] Rc Leavitt MD [address] [place] [address] Other chest pain (Primary Dx); ECG abnormal [...] the treadmill under the supervision of the teacher's assistant. > 85% target heart rate achieved and [...] on the treadmill underthe supervision of the teacher's assistant. > 85% target heart rate achieved andexercise [...] LEAVITT MD at 03/06/2018 4:39 PM EDT Rc Leavitt MD IMG NM ORDERABLES Final Result documented in this encounter Visit Diagnoses Diagnosis Other chest pain- Primary ECG abnormal Nonspecific abnormal electrocardiogram (ECG) (EKG) Other chest pain ECG abnormal Nonspecific abnormal electrocardiogram (ECG) (EKG) Other chest pain ECG abnormal Nonspecific abnormal electrocardiogram (ECG) (EKG) documented in this encounter Care Teams Gauge Machine Operator Relationship Specialty Start Date End Date Roxanne Funez MD [address] [place] [address] PCP - General Family Medicine 03/28/17 03/05/18 Roxanne Michel MD [address] [address] PCP - General Family Medicine 03/06/18 documented as of this encounter
--- OUTSIDE RECORDS SUMMARY | 2024-12-15 15:37 | XMS_ITS | Encounter Summary ---
Author Organization [facility] Address [address] [place] [address] Care Team Providers Care Social Sciences Chair Name Role Phone Roxanne Funez MD Primary Care Provider [phone] Roxanne Michel MD Primary Care Provider [phone] Source Comments This information has been disclosed [...] release of HIV test results or diagnoses. [id number] Health Encounter Details Date Type Department Care Team (Late st Contact Info) Description 04/01/2017 Orders Only [facility] Outreach Lab Test Referral Center [address] [place] [phone] Argelia Landon STD exposure (Primary Dx) Social [...] Swab Negative Negative 04/02/2017 2:22 PM EST [facility] Neisseria gonorrhoeae DNA Swab Negative Negative 04/02/2017 2:22 PM EST [facility] Comment: The presence of Chlamydia trachomatis and Neisseria gonorrhoeae DNA is detected by a U.S. Food and Drug Administration-approved amplification assay. Although performance of this test on male urethral swabs has not been approved by the FDA, the performance characterisitics for testing these samples have been determined by the [facility]. The laboratory is regulated under [...] FLUIDS AND STOOLS ORDERABLE S Final Result [facility] [address] documented in this encounter Visit Diagnoses Diagnosis STD exposure- Primary documented in this encounter Care Teams Social Sciences Chair Relationship Specialty Start Date End Date Roxanne Funez MD [address] [place] [address] PCP - General Family Medicine 03/28/17 03/05/18 Roxanne Michel MD [address] [address] PCP - General Family Medicine 03/06/18 documented as of this encounter
--- OUTSIDE RECORDS SUMMARY | 2024-12-15 15:37 | XMS_ITS | Continuity of Care Document ---
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 Imaging None recorded. Medication Orders None recorded. Patient TargetsNo targets recorded. Patient InstructionsNo instructions recorded. Reason for Referral None Reported. Problems Name Problem SNOMED Code Status Onset Date Resolution Date Notes Provider Name and Address Organization Details Recorded Time Back problem 732160194 Active 2023 Stephany Troydswor th null, [place] - [facility] [place] [facility] [place] 4 08:40:46 Headache 55910495 Active 2023 Stephany Beardswor th null, [place] [facility] [place] 4 08:40:51 Spinal stenosis of lumbar region 41350480 Active 2023 Jenny Mandel null, [place] [facility] [place] [facility] [place] 4 09:10:13 Inflammation of sacroiliac joint 32502399 Active 2023 Jenny Mandel [place], [place] [facility] [place] 4 09:10:20 Myofascial pain 515442017 Active 2023 Jenny Mandel null, [place] [facility] [place] [facility] [place] 4 06:59:33 Degeneration of lumbar intervertebral disc 11284951 Active 2023 Jennychrissy Mandel null, [place] [facility] [place] [facility] [place] 4 07:02:58 Problem Notes None recorded. Procedures Surgical History Date Name Laterality Status Provider Name and Address Organization Details Recorded Time 025 Thoracolumbar Trigger Point Injection completed TRUNG SOSA PA-C [address], [place], [address], [place] [facility] [place] 08/14/2024 10:05:05 024 Date of Last Colonoscopy completed Stephany Lakshmi [place] [facility] [place] [facility] [place] 03/12/2024 08:40:04 024 completed Stephany Lakshmi [place] [facility] [place] [facility] [place] 03/12/2024 08:40:04 022 Breast Surgery completed Stephany Lakshmi [place] [facility] [place] 03/12/2024 08:40:21 000 Voice Professor Surgery completed Stephany Lakshmi [place] [facility] [place] 03/12/2024 08:40:21 992 Cholecystectomy completed Stephany ARIAS [facility] & [place] 03/12/2024 08:40:21 Partial hysterectomy completed Sandee ARIAS [facility] & [place] 06/11/2024 10:40:25 Imaging Results None recorded. Procedure Notes None recorded. Medical Equipment None Reported. Allergies Allergen ID Allergen Name Allergen Category Reaction Reaction Severity Criticality Documentation Date Start Date Code Code System Note Provider Name and Address Organization Details Recorded Time 116033 Zanaflex medicatio n itching moderate Not available 03/12/2024 57683 6 RxNorm Stephany jay, MAKEDA ARIAS [facility] [place] 08:39:55 Medications Name Sig Start Date Stop [...] Address Organization Details Last Updated DateTime 5 [address].6 g 97.9 [degF] 100 % 100 % 90 /min 131/71 mm[Hg] Stephany Poe [facility] [place] 5 10:55:20 Social History Question Answer Notes LastModified by Organizat ion Details LastModified Time Tobacco Smoking Status Never Smoker Stephany [facility], [place] - [facility] & [place] 03/12/2024 08:40:16 Do You Have An Advance [...] SNOMED-CT Code Diagnosis ICD10 Code Diagnosis Note [id number] KSENIA JUNE PA-C [facility] [address] [facility] [address] [place] [address] 10/07/2024 10:30:17 10/07/2024 11:57:42 Spinal stenosis of lumbar region 35158918 M99.53 M48.061 - The patient is S/P lumbar epidural, which was successful in decreasing low back pain in the short-term .- I have reviewed the lumbar MRI, which revealed a midline disc protrusion at L4-L5; mild diffuse disc bulge and end plate hypertroph y at L5-S1. Degenerati on of lumbar intervertebral disc 81071606 M51.362 Inflammati on of sacroiliac joint 88108316 M46.1 - The patient is S/P (07/01/24) therapeuti c right SI joint injection, which was successful in decreasing right buttock pain by greater than 50%. The patient notes that the procedure failed to entirely target the pain pattern. I'm not convinced that the right SI joint is the greatest contributo r to pain. Lumbar radiculopathy 128 324137 M54.16 - The patient is 2 weeks S/P TFESI at right L5 and S1, which was successful in decreasing radicular pain and symptoms by greater than 50%. Myofascial pain 07479365 9 M79.18 - I think pain is at least partially stemming from trigger points of the musculatur e of the right gluteus medius/min imus and piriformis . It's possible that right-side d sciatica is secondary to right piriformis syndrome. Ischial bursitis 7345803 03 M70.71 - If right buttock pain with radiation posteriorl y down the RLE persists/w orsens, I will likely schedule a right ischial bursa injection. Lumbar spondylosis [address] 0009 M47.816 - The patient complains of [...] RFA. The procedure will be fluoroscop y-guided. [id number] Alcides Iqbal MD [facility] [address] [facility] [address] [place] [address] 10/19/2024 08:39:10 10/19/2024 09:00:04 Spinal stenosis of lumbar region 65588820 M99.53 M48.061 - The patient is S/P lumbar epidural, which was successful in decreasing low back pain in the short-term .- I have reviewed the lumbar MRI, which revealed a midline disc protrusion at L4-L5; mild diffuse disc bulge and end plate hypertroph y at L5-S1. Degenerati on of lumbar intervertebral disc 91967239 M51.362 Inflammati on of sacroiliac joint 33498624 M46.1 - The patient is S/P (07/01/24) therapeuti c right SI joint injection, which was successful in decreasing right buttock pain by greater than 50%. The patient notes that the procedure failed to entirely target the pain pattern. I'm not convinced that the right SI joint is the greatest contributo r to pain. Lumbar radiculopathy 128 828023 M54.16 - The patient is S/P TFESI at right L5 and S1 on 09/24/24, which was successful in decreasing radicular pain and symptoms by greater than 50%. Myofascial pain 89711846 9 M79.18 - I think pain is at least partially stemming from trigger points of the musculatur e of the right gluteus medius/min imus and piriformis . It's possible that right-side d sciatica is secondary to right piriformis syndrome. Ischial bursitis 7194039 03 M70.71 - If right buttock pain with radiation posteriorl y down the RLE persists/w orsens, I will likely schedule a right ischial bursa injection following her lumbar RFA. Lumbar spondylosis 41785 0009 M47.816 - The patient complains of [...] RFA. The procedure will be fluoroscop y-guided. [id number] Alcides Iqbal MD [facility] [address] [facility] [address] [place] [address] 11/04/2024 09:48:27 11/04/2024 11:18:28 Lumbar spondylosis 839915074 M47.816 - Based on the patients history [...] patient 4 weeks post injection. Myofascial pain 49380739 9 M79.18 Degenerati on of lumbar intervertebral disc 93221710 M51.362 Inflammati on of sacroiliac joint 22658342 M46.1 Health Concerns Section Related Observation LastModified by Organization Detai ls LastModified Time None Recorded Concern Status LastModified by Organization Details LastModified Time None Recorded Payers Encounter Date Sequence Insurance Name Policy Number Policy Gudino Covered Member ID Gudino Member ID Guarantor Name 11/04/2024 1 [place] [id number] Sandee Flowers [id number] Sandee Flowers OBGyn Episode No OBEpisode recorded.
--- OUTSIDE RECORDS SUMMARY | 2024-12-15 15:37 | XMS_ITS | Clinical Summary ---
Author Organization [facility] Address [address] [place] [address] Care Team Providers Care Transfer Clerk Name Role Phone Sumi Arboleda JOSÉ MIGUEL Primary Care Provid er Allergies Active Allergy Reactions Criticality Noted Date Comments Tizanidine Itching High 01/29/2024 Medications celecoxib (CeleBREX) 100 MG capsule 1 capsule. 4 Active fluticasone (CUTIVATE) 0.05 % cream 4 Active halobetasol (ULTRAVATE) 0.05 % ointment 4 Active ketoconazole (NIZORAL) 2 % shampoo 4 Active ondansetron ODT (ZOFRAN-ODT) 4 MG disintegrating tablet 1 tablet. 4 Active promethazine (PHENERGAN) 25 MG tablet 1 tablet. 4 Active pregabalin (Lyrica) 75 MG capsuleIndications: Chronic right-sided low back pain without sciatica Take 1 capsule by mouth 2 (Two) Times a Day. 60 capsule 1 4 Active Active Problems Problem Noted Date Diagnosed Date DDD (degenerative disc disease), lumbar 02/17/20 24 Low back pain Overview (02/17/2024): Since age 38 Lumbosacral disc disease Family History Medical History Relation Name Comments Diabetes Daughter Chel Reyes Diabetes Son José Antonio Flowers Relation Name Status Comments Daughter Chel Flowers Social History Tobacco Use Types Packs/Day Years Used Date Smoking Tobacco: Never Smokeless Tobacco: Never Alcohol Use Standard Drinks/Week Comments Not Currently 0 (1 standard drink = 0.6 oz pur e alcohol) Abuse Screen Answer Date Recorded Unsafe at Home or Work/School Not on file Feels Threatened by Someone? Not on file Does Anyone Keep You from Co ntacting Others or Doint Things Outside the Home? Not on file 03/01/2023 Physical Sign of Abuse Present Not on file 1 Housing Stability Answer Date Recorded Current Living Arrangements Not on file 02/17 Potentially Unsafe Housing Conditions Not on elmer e 03/01/2023 Family and Community Support Answer Luis e Recorded Help with Day-to-Day Activities Not on file 03/01/2023 Lonely or Isolated Not on file 03/01/2023 Employment Answer Date Recorded Do you want help finding or keeping work or a esther b? Not on file 03/01/2023 Disabilities Answer Date Recorded Concentrating, Remembering, or Making Decisions Difficulty Not on file 03/01/2023 Doing Errands Independently Difficulty Not on fi le 03/01/2023 Education Answer Date Recorded Help with school or training? Not on file Preferred Language Not on file 03/01/2023 Comments No Sex and Gender Information Value Date Recorded Sex Assigned at Not on file Legal Sex Female 10:58 AM EST Gender Identity Not on file Sexual Orientation Not on file Last Filed Vital Signs Vital Sign Reading Time Taken Comments Blood Pressure 118/72 02/17/2024 10:18 AM EDT Pulse - - Temperature 36.7 C (98 F) 02/17/2024 10:18 AM EDT Respiratory Rate - - Oxygen Saturation - - Inhaled Oxygen Concentration - - Weight 67.4 kg (148 lb 11.2 oz) 024 10:18 AM EDT Height 167.6 cm (5' 6 ) 02/17/2024 10:1 8 AM EDT Body Mass Index 24 02/17/2024 10:18 AM EDT Plan of Treatment Health Maintenance Due Date Last Done Comments Annual Gynecologic Pelvic and Breast Exam 1975 TDAP/TD VACCINES (1 - Tdap) 1992 MAMMOGRAM 11/13/2017 11/14/2015, 05/18/2015 COLOGUARD 2018 COLON CANCER SCREENING 5 YEA R SIGMOIDOSCOPY 2018 COLONOSCOPY 2018 [address] CANCER SCREENING 2018 CT COLONOGRAPHY 2018 FECAL OCCULT BLOOD TEST 2018 FIT Testing (1 year) 2018 ANNUAL PHYSICAL 09/06/2021 HEPATITIS C SCREENING 09/06/2021 Pneumococcal Vaccine 50+ (1 of 1 - PCV) 10/18/2023 ZOSTER VACCINE (1 of 2) 10/18/2023 COVID-19 Vaccine (1 - 2023- season) 2024 INFLUENZA VACCINE 02/17/2025 Insurance HMO Care Teams Transfer Clerk Relationship Specialty Start Date End Date Sumi Arboleda APRN [address] [place] [address] PCP - General Family Medicine 02/17/24
--- OUTSIDE RECORDS SUMMARY | 2024-12-15 15:37 | XMS_ITS | Encounter Summary ---
Author Organization [facility] Address [address] [place] [address] Care Team Providers Care Hall Cleaner Name Role Phone Roxanne Michel MD Primary Care Provider [phone] Source Comments This information has been disclosed [...] release of HIV test results or diagnoses. [id number] Reason for Referral * Imaging/Cardiovascular Scan (Routine) - Closed Specialty Diagnoses / Procedures Referred By Contac t Referred To Contact Cardiology Diagnoses SOB (shortness of breath) Palpitations Other chest pain Abnormal ECG Procedures Echo 2D Complete (TTE) Kaleb Leavitt MD Phone: tel: fax: Referral ID Status Reason Start Date Expiration Date Visits Re quested Visits Authorized [id number] Closed 03/07/2018 04/05/2018 1 1 Encounter Details Date Type Department Care Team (Late st Contact Info) Description 03/07/2018 Orders Only [facility] [address] [place] [phone] Kaleb Leavitt MD [address] [place] [address] SOB (shortness of breath) (Primary [...] EDT Narrative 03/10/2018 5:23 PM EDT * [facility]* [address] [place] [address] Transthoracic Echocardiography Patient: Sandee Flowers MR #: [id number] Account: Study Date: 03/10/2018 Gender: F Age: 42 : 1975 Room: [facility] ATTENDING Kaleb Leavitt MD ORDERING Kaleb Leavitt MD REFERRING Kaleb Leavitt MD PERFORMING [facility], [facility] TRANSFER PROFESSOR Selin Whitaker RT, RDMS, RDCS Procedure:ECHO 2D Order:ECHO 2D Accession COMPLETE (TTE) COMPLETE (TTE) Number:[id number] Indications: Shortness of breath 786.05. Study data: [...] Reviewed and confirmed by Kaleb Leavitt MD [id number]:22:55 Procedure Note Kaleb Leavitt MD - 03/10/2018 * [facility]* [address] [place] [address] Transthoracic Echocardiography Patient: Sandee Flowers MR #: [id number] Account: Study Date: 03/10/2018 Gender: F Age: 42 : 1975 Room: [facility] ATTENDING Kaleb Leavitt MD ORDERING Kaleb Leavitt MD REFERRING Kaleb Leavitt MD PERFORMING [facility], [facility] TRANSFER PROFESSOR Selin Whitaker RT, RDMS, RDCS Procedure:ECHO 2D Order:ECHO 2D Accession COMPLETE (TTE) COMPLETE (TTE) Number:[id number] Indications: Shortness of breath 786.05. Study data: [...] Reviewed and confirmed by Kaleb Leavitt MD [id number]:22:55 us Kaleb Leavitt MD CV ECHO ORDERABLES Final Resul t documented in this encounter Visit Diagnoses Diagnosis SOB (shortness of breath)- Primary Shortness of breath Palpitations Other chest pain Abnormal ECG Nonspecific abnormal electrocardiogram (ECG) (EKG) SOB (shortness of breath) Shortness of breath Palpitations Other chest pain Abnormal ECG Nonspecific abnormal electrocardiogram (ECG) (EKG) documented in this encounter Care Teams Hall Cleaner Relationship Specialty Start Date End Date Roxanne Michel MD [address] [address] PCP - General Family Medicine 03/06/18 documented as of this encounter
--- OUTSIDE RECORDS SUMMARY | 2024-12-15 15:37 | XMS_ITS | Clinical Summary ---
Author Organization [facility] Address [address] [facility], [address] [place] [address] Care Team Providers Care Welding Machine Operator Thermit Name Role Phone Taco Miranda MD Primary Care Provider [phone] Allergies Active Allergy Reactions Criticality Noted Date Comments Tizanidine Itching High 01/29/2024 Medications ondansetron (ZOFRAN-ODT) 4 MG disintegrating tablet Take 1 tablet by mouth every 6 hours as needed for Nausea or Vomiting 21 tablet 5 Active dicyclomine (BENTYL) 20 MG tablet Take 1 tablet by mouth 4 times daily for 5 days 20 tablet 5 Active Encounters Date Type Department Care Team Description 11/23/2024 4:44 AM EDT - 11/23/2024 11:45 AM EDT Emergency [facility] Emergency Department [address] [place] [address] Elan Coffey MD Price, Brandon M, MD [...] 2018 FIT/FOBT: Average risk 2018 Fecal-DNA (Cologuard): [place] ge risk 2018 Sigmoidoscopy/CT colonography 2018 Pneumococcal [...] - 2.0 mmol/L 11/23/2024 10:44 AM EDT [facility] Blood BLOOD SPECIMEN / Unknown 11/23/2024 10:27 AM EDT 11/23/2024 10:27 AM EDT us Rahul Felix MD CHEMISTRY ORDERABLES Final Re sult [facility] [address] [place] [address], [facility] [phone] * US PELVIS COMPLETE NON-OB TRANSABD/TRANSVAG W [...] free fluid. Hysterectomy. us Rahul Felix MD [facility] US ORDERABLES Final Resul t * GI Bacterial [...] enterocolitica DNA detected Normal Range: None detected [facility] STOOL SPECIMEN / Unknown 11/23/2024 7:20 AM EDT 11/23/2024 7:25 AM EDT [facility] - 11/24/2024 1:58 PM EDT ORDER#: [id number] ORDERED BY: ELAN COFFEY SOURCE: Stool COLLECTED: 11/23/24 07:20 ANTIBIOTICS AT JAMES.: RECEIVED : 11/23/24 07:25 Elan Coffey MD MICROBIOLOGY - GENERAL ORD ERABLES Final Result Performing Organization Address City/[facility]/ZIP Co de Phone Number [facility] [address] [place] [address], [facility] [phone] * Clostridium difficile toxin/antigen (11/23/2024 7:20 AM EDT) C.diff Toxin/Antigen Negative for Clostridium difficile antigen and toxin Normal Range: Negative [facility] Stool STOOL SPECIMEN / Unknown 11/23/2024 7:20 AM EDT 11/23/2024 7:24 AM EDT [facility] - 11/23/2024 8:20 AM EDT ORDER#: [id number] ORDERED BY: ELAN COFFEY SOURCE: Stool stool COLLECTED: 11/23/24 07:20 ANTIBIOTICS AT JAMES.: RECEIVED : 11/23/24 07:24 Collect White vial (sterile container) Elan Coffey MD MICROBIOLOGY - GENERAL ORD ERABLES Final Result [facility] [address] [place] [address], [facility] [phone] * CT ABDOMEN PELVIS W IV CONTRAST [...] cyst. Recommend further evaluation with pelvic ultrasound. Elan Coffey MD IMG CT ORDERABLES Final Re sult * EKG 12 Lead (11/23/2024 5:00 AM EDT) Ventricular Rate 94 BPM [facility] MUSE Atrial Rate 94 BPM [facility] MUSE P-R Interval 154 ms [facility] MUSE QRS Duration 84 ms [facility] MUSE Q-T Interval 358 ms [facility] MUSE QTc Calculation (Bazett) 447 ms [facility] MUSE P [place]tair 72 degrees [facility] MUSE R [place] 56 degrees [facility] MUSE T [place]tair 46 degrees [facility] MUSE Diagnosis Normal sinus rhythmNonspecific ST abnormalityAbnormal ECGWhen compared with ECG of 02-AUG-2021 02:25,No significant change was foundConfirmed by PATRICIA VENTURA MD ([id number]) on 11/23/2024 7:56:06 AM [facility] MUSE 11/23/2024 5:00 AM EDT 11/23/2024 7:56 AM EDT us Elan Coffey MD ECG ORDERABLES Final Resu lt [facility]MN MUSE * (ABNORMAL) Comprehensive Metabolic Panel w/ Reflex to MG (11/23/2024 5:00 AM EDT) Sodium 140 136 - 145 mmol/L 11/23/2024 5:28 AM EDT [facility] Potassium reflex Magnesium 3.7 3.5 - 5.1 mmol/L 11/23/2024 5:28 AM EDT [facility] Comment: Specimen hemolysis has exceeded the interference as defined by Yinka. Value may be falsely increased. Suggest recollection if clinically indicated. Chloride 100 99 - 110 mmol/L 11/23/2024 5:28 AM [facility] CO2 23 21 - 32 mmol/L 11/23/2024 5:38 AM [facility] Anion Gap 17(H) 3 - 16 11/23/2024 5:38 AM [facility] Glucose 111(H) 70 - 99 mg/dL 11/23/2024 5:39 AM [facility] BUN 13 7 - 20 mg/dL 11/23/2024 5:39 AM [facility] Creatinine 0.7 0.6 - 1.1 mg/dL 11/23/2024 5:39 AM [facility] Est, Glom Filt Rate >90 >60 11/23/2024 5:39 AM [facility] Comment: Pediatric calculator link https://www.kidney.org/professionals/kdoqi/gfr_calculatorped Effective [...] 8.3 - 10.6 mg/dL 11/23/2024 5:38 AM [facility] Total Protein 7.0 6.4 - 8.2 g/dL 11/23/2024 5:39 AM [facility] Albumin 4.3 3.4 - 5.0 g/dL 11/23/2024 5:38 AM [facility] Albumin/Globulin Ratio 1.6 1.1 - 2.2 11/23/2024 5:39 AM [facility] Total Bilirubin 0.3 0.0 - 1.0 mg/dL 11/23/2024 5:38 AM [facility] Alkaline Phosphatase 79 40 - 129 U/L 11/23/2024 5:38 AM T [facility] ALT 13 10 - 40 U/L 11/23/2024 5:38 AM EDT [facility] AST 28 15 - 37 U/L 11/23/2024 5:38 AM T [facility] Comment: Specimen hemolysis has exceeded the interference as defined by Yinka. Value may be falsely increased. Suggest recollection if clinically indicated. Blood BLOOD SPECIMEN / Unknown 11/23/2024 5:00 AM EDT 11/23/2024 5:11 AM EDT us Elan Coffey MD CHEMISTRY ORDERABLES Final Result [facility] [address] [place] [address], [facility] [phone] * (ABNORMAL) CBC with Auto Differential (11/23/2024 5:00 AM EDT) WBC 17.0(H) 4.0 - 11.0 K/uL 11/23/2024 5:13 AM [facility] RBC 5.00 4.00 - 5.20 M/uL 11/23/2024 5:13 AM [facility] Hemoglobin 14.8 12.0 - 16.0 g/dL 11/23/2024 5:13 AM [facility] Hematocrit 43.3 36.0 - 48.0 % 11/23/2024 5:13 AM [facility] MCV 86.6 80.0 - 100.0 fL 11/23/2024 5:13 AM [facility] MCH 29.7 26.0 - 34.0 pg 11/23/2024 5:13 AM [facility] MCHC 34.3 31.0 - 36.0 g/dL 11/23/2024 5:13 AM [facility] RDW 12.4 12.4 - 15.4 % 11/23/2024 5:13 AM [facility] Platelets 213 135 - 450 K/uL 11/23/2024 5:13 AM [facility] MPV 8.5 5.0 - 10.5 fL 11/23/2024 5:13 AM [facility] PLATELET SLIDE REVIEW Adequate 11/23/2024 7:53 AM [facility] SLIDE REVIEW see below 11/23/2024 7:53 AM [facility] Comment:Slide review agrees with reported results Neutrophils % 84.0 % 11/23/2024 7:53 AM [facility] Lymphocytes % 9.0 % 11/23/2024 7:53 AM [facility] Monocytes % 3.0 % 11/23/2024 7:53 AM [facility] Eosinophils % 0.0 % 11/23/2024 7:53 AM [facility] Basophils % 0.0 % 11/23/2024 7:53 AM [facility] Neutrophils Absolute 15.0(H) 1.7 - 7.7 K/uL 11/23/2024 7:53 AM [facility] Lymphocytes Absolute 1.5 1.0 - 5.1 K/uL 11/23/2024 7:53 AM [facility] Monocytes Absolute 0.5 0.0 - 1.3 K/uL 11/23/2024 7:53 AM [facility] Eosinophils Absolute 0.0 0.0 - 0.6 K/uL 11/23/2024 7:53 AM [facility] Basophils Absolute 0.0 0.0 - 0.2 K/uL 11/23/2024 7:53 AM [facility] Bands Relative 4 0 - 7 % 11/23/2024 7:53 AM [facility] RBC Morphology Normal 11/23/2024 7:53 AM [facility] Blood BLOOD SPECIMEN / Unknown 11/23/2024 5:00 AM EDT 11/23/2024 5:11 AM EDT Elan Coffey MD HEMATOLOGY ORDERABLES Sandi l Result [facility] [address] [place] [address] * Troponin (11/23/2024 5:00 AM EDT) Troponin, High Sensitivity <6 0 - 14 ng/L 11/23/2024 5:37 AM EDT [facility] Comment: The high-sensitivity troponin T result should not be compared with other troponin methodologies. Blood BLOOD SPECIMEN / Unknown 11/23/2024 5:00 AM EDT 11/23/2024 5:11 AM EDT Elan Coffey MD CHEMISTRY ORDERABLES Final Result Performing Organization Address [facility] Co de Phone Number [facility] [address] [place] [address] * (ABNORMAL) Urinalysis with Microscopic (11/23/2024 5:00 AM EDT) Color, UA Yellow Straw/Yellow 11/23/2024 5:20 AM EDT [facility] Clarity, UA Clear Clear 11/23/2024 5:20 AM EDT [facility] Glucose, Ur Negative Negative mg/dL 11/23/2024 5:20 AM EDT [facility] Bilirubin, Urine SMALL(A) Negative 11/23/2024 5:20 AM EDT [facility] Ketones, Urine Negative Negative mg/dL 11/23/2024 5:20 AM EDT [facility] Specific [place], UA >=1.030 1.005 - 1.030 11/23/2024 5:20 AM EDT [facility] Blood, Urine MODERATE(A) Negative 11/23/2024 5:20 AM [facility] pH, Urine 5.5 5.0 - 8.0 11/23/2024 5:20 AM [facility] Protein, UA 100(A) Negative mg/dL 11/23/2024 5:20 AM [facility] Urobilinogen, Urine 1.0 <2.0 E.U./dL 11/23/2024 5:20 AM [facility] Nitrite, Urine Negative Negative 11/23/2024 5:20 AM [facility] Leukocyte Esterase, Urine TRACE(A) Negative 11/23/2024 5:20 AM [facility] Microscopic Examination YES 11/23/2024 8:38 AM [facility] Urine Type NotGiven 11/23/2024 5:14 AM [facility] Hyaline Casts, UA 0-2 0 - 2 /LPF 11/23/2024 5:51 AM [facility] Mucus, UA 2+(A) None Seen /LPF 11/23/2024 5:51 AM [facility] WBC, UA 10-20(A) 0 - 5 /HPF 11/23/2024 5:51 AM [facility] RBC, UA 0-2 0 - 4 /HPF 11/23/2024 5:51 AM [facility] Epithelial Cells, UA 0-1 0 - 5 /HPF 11/23/2024 5:51 AM [facility] Bacteria, UA 1+(A) None Seen /HPF 11/23/2024 5:51 AM [facility] Crystals, UA 1+ Ca. Oxalate(A) None Seen /HPF 11/23/2024 5:51 AM [facility] Urine URINE SPECIMEN / Unknown 11/23/2024 5:00 AM EDT 11/23/2024 5:15 AM EDT Elan Coffey MD URINE ORDERABLES Final Res ult [facility] [address] [place] [address], [facility] [phone] * Culture, Urine (11/23/2024 5:00 AM EDT) Urine Culture, Routine No growth at 18 to 36 hours [facility] Urine URINE SPECIMEN / Unknown 11/23/2024 5:00 AM EDT 11/23/2024 7:44 AM EDT Narrative [facility] - 11/24/2024 7:29 AM EDT ORDER#: [id number] ORDERED BY: ELAN COFFEY SOURCE: Urine Clean Catch COLLECTED: 11/23/24 05:00 ANTIBIOTICS AT JAMES.: RECEIVED : 11/23/24 07:44 Elan Coffey MD MICROBIOLOGY - GENERAL ORD ERABLES Final Result Performing Organization Address City/[facility]/ZIP Co de Phone Number [facility] [address] [place] [address], [facility] [phone] * Lipase (11/23/2024 5:00 AM EDT) Lipase 43.0 13.0 - 60.0 U/L 11/23/2024 5:39 AM EDT [facility] Blood BLOOD SPECIMEN / Unknown 11/23/2024 5:00 AM EDT 11/23/2024 5:11 AM EDT Elan Coffey MD CHEMISTRY ORDERABLES Final Result Performing Organization Address City/[facility]/ZIP Co de Phone Number [facility] [address] [place] [address], [facility] [phone] from Last [address] [place] [id number] [place] Care Teams Welding Machine Operator Thermit Relationship Specialty Start Date End Date Taco Miranda MD [address] [place], [place] [address] PCP - General Pediatrics 08/02/21
== END 2024-12-15 23:59 | disposition home or self-care (01) ==
LOC: RAD 15:34
PROVIDERS: PCP Family Medicine; Visit Provider Nurse Practitioner Family
DX: Z12.31 Encounter for screening mammogram for malignant neoplasm of breast (principal); Z80.3 Family history of malignant neoplasm of breast
CPT/HCPCS: 77063; 77067

== ENCOUNTER 2024-12-17 14:16 | Outpatient (CLI) | payer OTHER, SELFPAY ==
--- OUTSIDE RECORDS SUMMARY | 2024-11-23 04:44 | XMS_ITS | Encounter Summary ---
Author Organization [facility] Address [address], [address] [place] [address] Care Team Providers Care Cardiovascular Surgical Tech Name Role Phone Taco Miranda MD Primary Care Provider [phone] Reason for Visit * Reason Comments Abdominal Pain Patient states she a te chipolte tonight and vomiting started after eating and now she has liquid diarrhea. Encounter Details Date Type Department Care Team (Late st Contact Info) Description 11/23/2024 4:44 AM EDT - 11/23/2024 11:45 AM EDT Emergency [facility] Emergency Department [address] [place] [address] Jemima Coffey MD [address] [place] [address] Rahul Felix MD [address] [place] [address] Enterocolitis (Primary Dx); Nausea vomiting [...] for any worsening symptoms. Follow-up with your assembler truck trailer for outpatient ultrasound of pelvic cyst with recommended repeat ultrasound in 6 months per radiologist but talk to your assembler truck trailer to see if anything sooner is needed. [...] be sent through Care Everywhere. * Colitis (Sudanese) documented in this encounter Medications at Time [...] - 2.0 mmol/L 11/23/2024 10:44 AM EDT [facility] Blood BLOOD SPECIMEN / Unknown 11/23/2024 10:27 AM EDT 11/23/2024 10:27 AM EDT us Rahul Felix MD CHEMISTRY ORDERABLES Final Re sult [facility] [address] [phone] * US PELVIS COMPLETE NON-OB TRANSABD/TRANSVAG W [...] free fluid. Hysterectomy. us Rahul Felix MD [facility] US ORDERABLES Final Resul t * (ABNORMAL) Lactic Acid (11/23/2024 7:40 AM EDT) Lactic Acid 3.2(H) 0.4 - 2.0 mmol/L 11/23/2024 7:56 AM EDT [facility] Blood BLOOD SPECIMEN / Unknown 11/23/2024 7:40 AM EDT 11/23/2024 7:40 AM EDT Jemima Coffey MD CHEMISTRY ORDERABLES Final Result [facility] [address] [place] [address], [facility] [phone] * GI Bacterial Pathogens By PCR (11/23/2024 7:20 AM EDT) Pathologist [facility] GI Bacterial Pathogens By PCR No Shigella spp/EIEC DNA detected No Shiga toxin-producing gene(s) detected No Campylobacter spp. (jejuni and coli)DNA detected No Salmonella spp. DNA detected No Vibrio vulnificus/parahae molyticus/cholerae DNA detected No Plesiomonas shigelloides DNA detected No Enterotoxigenic E. coli (ETEC) DNA detected No Yersinia enterocolitica DNA detected Normal Range: None detected [facility] STOOL SPECIMEN / Unknown 11/23/2024 7:20 AM EDT 11/23/2024 7:25 AM EDT Narrative [facility] - 11/24/2024 1:58 PM EDT ORDER#: [id number] ORDERED BY: JEMIMA COFFEY SOURCE: Stool COLLECTED: 11/23/24 07:20 ANTIBIOTICS AT JAMES.: RECEIVED : 11/23/24 07:25 Jemima Coffey MD MICROBIOLOGY - GENERAL ORD ERABLES Final Result [facility] [address] [place] [address], [facility] [phone] * Clostridium difficile toxin/antigen (11/23/2024 7:20 AM EDT) C.diff Toxin/Antigen Negative for Clostridium difficile antigen and toxin Normal Range: Negative [facility] Stool STOOL SPECIMEN / Unknown 11/23/2024 7:20 AM EDT 11/23/2024 7:24 AM EDT Narrative [facility] - 11/23/2024 8:20 AM EDT ORDER#: [id number] ORDERED BY: JEMIMA COFFEY SOURCE: Stool stool COLLECTED: 11/23/24 07:20 ANTIBIOTICS AT JAMES.: RECEIVED : 11/23/24 07:24 Collect White vial (sterile container) Jemima Coffey MD MICROBIOLOGY - GENERAL ORD ERABLES Final Result [facility] [address] [place] [address], [facility] [phone] * CT ABDOMEN PELVIS W IV CONTRAST [...] Calculation (Bazett) 447 ms SW[facility] MUSE P [place] 72 degrees SW[facility] MUSE R [place] 56 degrees SW[facility] MUSE T [place] 46 degrees SW[facility] MUSE Diagnosis Normal sinus rhythmNonspecific ST abnormalityAbnormal ECGWhen compared with ECG of 02-AUG-2021 02:25,No significant change was foundConfirmed by PATRICIA VENTURA MD ([id number]) on 11/23/2024 7:56:06 AM NATALIE MUSE 11/23/2024 5:00 AM EDT 11/23/2024 7:56 AM EDT Jemima Coffey MD ECG ORDERABLES Final Resu lt Performing Organization Address City/[facility]/ZIP Co de Phone Number NATALIE [facility] * Culture, Urine (11/23/2024 5:00 AM EDT) Urine Culture, Routine No growth at 18 to 36 hours [facility] Urine URINE SPECIMEN / Unknown 11/23/2024 5:00 AM EDT 11/23/2024 7:44 AM EDT Narrative [facility] - 11/24/2024 7:29 AM EDT ORDER#: [id number] ORDERED BY: JEMIMA COFFEY SOURCE: Urine Clean Catch COLLECTED: 11/23/24 05:00 ANTIBIOTICS AT JAMES.: RECEIVED : 11/23/24 07:44 Jemima Coffey MD MICROBIOLOGY - GENERAL ORD ERABLES Final Result Performing Organization Address [facility] Co de Phone Number [facility] [address] [phone] * (ABNORMAL) Lactic Acid (11/23/2024 5:00 AM EDT) Lactic Acid 2.5(H) 0.4 - 2.0 mmol/L 11/23/2024 5:36 AM EDT [facility] Blood BLOOD SPECIMEN / Unknown 11/23/2024 5:00 AM EDT 11/23/2024 5:16 AM EDT Jemima Coffey MD CHEMISTRY ORDERABLES Final Result Performing Organization Address City/[facility]/ZIP Co de Phone Number [facility] [address] [place] [address] * Troponin (11/23/2024 5:00 AM EDT) [facility] [address] Troponin, High Sensitivity <6 0 - 14 ng/L 11/23/2024 5:37 AM EDT [facility] Comment: The high-sensitivity troponin T result should not be compared with other troponin methodologies. Blood BLOOD SPECIMEN / Unknown 11/23/2024 5:00 AM EDT 11/23/2024 5:11 AM EDT us Jemima Coffey MD CHEMISTRY ORDERABLES Final Result [facility] [address] [place] [address] * (ABNORMAL) Urinalysis with Microscopic (11/23/2024 5:00 AM EDT) Pathologist [facility] Color, UA Yellow Straw/Yellow 11/23/2024 5:20 AM EDT [facility] Clarity, UA Clear Clear 11/23/2024 5:20 AM EDT [facility] Glucose, Ur Negative Negative mg/dL 11/23/2024 5:20 AM EDT [facility] Bilirubin, Urine SMALL(A) Negative 11/23/2024 5:20 AM EDT [facility] Ketones, Urine Negative Negative mg/dL 11/23/2024 5:20 AM EDT [facility] Specific [place], UA >=1.030 1.005 - 1.030 11/23/2024 5:20 AM EDT [facility] Blood, Urine MODERATE(A) Negative [facility]24 [facility], Urine 5.5 5.0 - 8.0 11/23/2024 5:20 AM EDT [facility] Protein, UA 100(A) Negative mg/dL 11/23/2024 5:20 AM EDT [facility] Urobilinogen, Urine 1.0 <2.0 E.U./dL 11/23/2024 5:20 AM EDT [facility] Nitrite, Urine Negative Negative 11/23/2024 5:20 AM EDT [facility] Leukocyte Esterase, Urine TRACE(A) Negative 11/23/2024 5:20 AM EDT [facility] Microscopic Examination YES 11/23/2024 8:38 AM EDT [facility] Urine Type NotGiven 11/23/2024 5:14 AM EDT [facility] Hyaline Casts, UA 0-2 0 - 2 /LPF 11/23/2024 5:51 AM EDT [facility] Mucus, UA 2+(A) None Seen /LPF 11/23/2024 5:51 AM EDT [facility] WBC, UA 10-20(A) 0 - 5 /HPF 11/23/2024 5:51 AM EDT [facility] RBC, UA 0-2 0 - 4 /HPF 11/23/2024 5:51 AM EDT [facility] Epithelial Cells, UA 0-1 0 - 5 /HPF 11/23/2024 5:51 AM EDT [facility] Bacteria, UA 1+(A) None Seen /HPF 11/23/2024 5:51 AM EDT [facility] Crystals, UA 1+ Ca. Oxalate(A) None Seen /HPF 11/23/2024 5:51 AM EDT [facility] Urine URINE SPECIMEN / Unknown 11/23/2024 5:00 AM EDT 11/23/2024 5:15 AM EDT us Jemima Coffey MD URINE ORDERABLES Final Res ult [facility] [address] [place] [address] * Lipase (11/23/2024 5:00 AM EDT) Lipase 43.0 13.0 - 60.0 U/L 11/23/2024 5:39 AM EDT [facility] Blood BLOOD SPECIMEN / Unknown 11/23/2024 5:00 AM EDT 11/23/2024 5:11 AM EDT Jemima Coffey MD CHEMISTRY ORDERABLES Final Result [facility] [address] [place] [address], [facility] [phone] * (ABNORMAL) Comprehensive Metabolic Panel w/ Reflex to MG (11/23/2024 5:00 AM EDT) Sodium 140 136 - 145 mmol/L 11/23/2024 5:28 AM EDT [facility] Potassium reflex Magnesium 3.7 3.5 - 5.1 mmol/L 11/23/2024 5:28 AM T [facility] Comment: Specimen hemolysis has exceeded the interference as defined by Yinka. Value may be falsely increased. Suggest recollection if clinically indicated. Chloride 100 99 - 110 mmol/L 11/23/2024 5:28 AM T [facility] CO2 23 21 - 32 mmol/L 11/23/2024 5:[address] [facility] Anion Gap 17(H) 3 - 16 11/23/2024 5:38 AM T [facility] Glucose 111(H) 70 - 99 mg/dL 11/23/2024 5:39 AM T [facility] BUN 13 7 - 20 mg/dL 11/23/2024 5:[address] [facility] Creatinine 0.7 0.6 - 1.1 mg/dL 11/23/2024 5:[address] [facility] Est, Glom Filt Rate >90 >60 11/23/2024 5:39 AM T [facility] Comment: Pediatric calculator link https://www.kidney.org/professionals/kdoqi/gfr_calculatorped Effective [...] - 10.6 mg/dL 11/23/2024 5:38 AM EDT [facility] Total Protein 7.0 6.4 - 8.2 g/dL 11/23/2024 5:39 AM EDT [facility] Albumin 4.3 3.4 - 5.0 g/dL 11/23/2024 5:[address] [facility] Albumin/Globulin Ratio 1.6 1.1 - 2.2 11/23/2024 5:39 AM EDT [facility] Total Bilirubin 0.3 0.0 - 1.0 mg/dL 11/23/2024 5:38 AM EDT [facility] Alkaline Phosphatase 79 40 - 129 U/L 11/23/2024 5:38 AM T [facility] ALT 13 10 - 40 U/L 11/23/2024 5:38 AM T [facility] AST 28 15 - 37 U/L 11/23/2024 5:38 AM EDT [facility] Comment: Specimen hemolysis has exceeded the interference as defined by Yinka. Value may be falsely increased. Suggest recollection if clinically indicated. Blood BLOOD SPECIMEN / Unknown 11/23/2024 5:00 AM EDT 11/23/2024 5:11 AM EDT us Jemima Coffey MD CHEMISTRY ORDERABLES Final Result [facility] [address] [place] [address], [facility] [phone] * (ABNORMAL) CBC with Auto Differential (11/23/2024 5:00 AM EDT) WBC 17.0(H) 4.0 - 11.0 K/uL 11/23/2024 5:[address] [facility] RBC 5.00 4.00 - 5.20 M/uL 11/23/2024 5:[address] [facility] Hemoglobin 14.8 12.0 - 16.0 g/dL 11/23/2024 5:[address] [facility] Hematocrit 43.3 36.0 - 48.0 % 11/23/2024 5:[address] [facility] MCV 86.6 80.0 - 100.0 fL 11/23/2024 5:[address] [facility] MCH 29.7 26.0 - 34.0 pg 11/23/2024 5:[address] [facility] MCHC 34.3 31.0 - 36.0 g/dL 11/23/2024 5:[address] [facility] RDW 12.4 12.4 - 15.4 % 11/23/2024 5:[address] [facility] Platelets 213 135 - 450 K/uL 11/23/2024 5:[address] [facility] MPV 8.5 5.0 - 10.5 fL 11/23/2024 5:[address] [facility] PLATELET SLIDE REVIEW Adequate 11/23/2024 7:[address] [facility] SLIDE REVIEW see below 11/23/2024 7:[address] [facility] Comment:Slide review agrees with reported results Neutrophils % 84.0 % 11/23/2024 7:[address] [facility] Lymphocytes % 9.0 % 11/23/2024 7:[address] [facility] Monocytes % 3.0 % 11/23/2024 7:[address] [facility] Eosinophils % 0.0 % 11/23/2024 7:53 AM EDT [facility] Basophils % 0.0 % 11/23/2024 7:53 AM EDT [facility] Neutrophils Absolute 15.0(H) 1.7 - 7.7 K/uL 11/23/2024 7:53 AM EDT [facility] Lymphocytes Absolute 1.5 1.0 - 5.1 K/uL 11/23/2024 7:53 AM EDT [facility] Monocytes Absolute 0.5 0.0 - 1.3 K/uL 11/23/2024 7:53 AM EDT [facility] Eosinophils Absolute 0.0 0.0 - 0.6 K/uL 11/23/2024 7:53 AM EDT [facility] Basophils Absolute 0.0 0.0 - 0.2 K/uL 11/23/2024 7:53 AM EDT [facility] Bands Relative 4 0 - 7 % 11/23/2024 7:53 AM EDT [facility] RBC Morphology Normal 11/23/2024 7:53 AM EDT [facility] Blood BLOOD SPECIMEN / Unknown 11/23/2024 5:00 AM EDT 11/23/2024 5:11 AM EDT Jemima Coffey MD HEMATOLOGY ORDERABLES Sandi preston Result [facility] [address] [place] [address] documented in this encounter Visit Diagnoses Diagnosis [...] documented as of this encounter Care Teams Cardiovascular Surgical Tech Relationship Specialty Start Date End Date Taco Miranda MD [address] [place] [address] [place] [address] PCP - General Pediatrics 08/02/21 documented as of this encounter
--- OUTSIDE RECORDS SUMMARY | 2024-12-17 14:21 | XMS_ITS | Encounter Summary ---
Author Organization [facility] Address [address] [facility] [address], [address] [place] [address] Care Team Providers Care Commercial Marketing Specialist Name Role Phone Taco Miranda MD Primary Care Provider [phone] Encounter Details Date Type Department Care Team [...] documented as of this encounter Care Teams Commercial Marketing Specialist Relationship Specialty Start Date End Date Taco Miranda MD [address] [place] [address] PCP - General Pediatrics 08/02/21 documented as of this encounter
--- OUTSIDE RECORDS SUMMARY | 2024-12-17 14:22 | XMS_ITS | Clinical Summary ---
Author Organization [facility] Address [address] [place] [address] Care Team Providers Care Cook Taco Name Role Phone Roxanne Michel MD Primary Care Provider [phone] Source Comments This information has been disclosed [...] therelease of HIV test results or diagnoses. [id number] Allergies No known active allergies Medications [...] of Treatment Not on file Insurance [address] [place] [address] [facility] Care Teams Cook Taco Relationship Specialty Start Date End Date Roxanne Michel MD [address] [address] PCP - General Family Medicine 03/06/18
--- OUTSIDE RECORDS SUMMARY | 2024-12-17 14:22 | XMS_ITS | Referral Summary ---
Author Organization [facility] Address [facility] [place] [address] Care Team Providers Care Surtass Analyst Name Role Phone Bessie Martini Primary Care Provider [phone] Social History Tobacco Use Types Packs/Day Years [...] Relevant to Health Maintenance Insurance Care Teams Surtass Analyst Relationship Specialty Start Date End Date Bessie Martini DO PCP - General Family Medicine 01/19/15
--- OUTSIDE RECORDS SUMMARY | 2024-12-17 14:22 | XMS_ITS | Clinical Summary ---
Author Organization [facility] Address [facility] [place] [address] Care Team Providers Care Refrigeration Person Name Role Phone Bessie Martini Primary Care Provider [phone] Social History Tobacco Use Types Packs/Day Years [...] Most Recently Relevant to Health Maintenance Insurance [facility] NOT MEDICARE Care Teams Refrigeration Person Relationship Specialty Start Date End Date Bessie Martini DO PCP - General Family Medicine 01/19/15
--- OUTSIDE RECORDS SUMMARY | 2024-12-17 14:23 | XMS_ITS | Encounter Summary ---
Author Organization [facility] Address [address] [place] [address] Care Team Providers Care Lead Refiner Name Role Phone Roxanne Michel MD Primary Care Provider [phone] Source Comments This information has been disclosed [...] release of HIV test results or diagnoses. [id number] Reason for Referral * Imaging/Cardiovascular Scan (Routine) - Closed Specialty Diagnoses / Procedures Referred By Contac t Referred To Contact Cardiology Diagnoses SOB (shortness of breath) Palpitations Other chest pain Abnormal ECG Procedures Echo 2D Complete (TTE) Kaleb Leavitt MD Phone: tel: fax: Referral ID Status Reason Start Date Expiration Date Visits Re quested Visits Authorized [id number] Closed 03/07/2018 04/05/2018 1 1 Encounter Details Date Type Department Care Team (Late st Contact Info) Description 03/07/2018 Orders Only [facility] [address] [place] [id number] Kaleb Leavitt MD [address] [place] [address] SOB (shortness of breath) (Primary [...] EDT Narrative 03/10/2018 5:23 PM EDT * [place] [facility]* [address] [place] [address] Transthoracic Echocardiography Patient: Sandee Flowers MR #: [id number] Account: Study Date: 03/10/2018 Gender: F Age: 42 : 1975 Room: [facility] ATTENDING Kaleb Leavitt MD ORDERING Kaleb Leavitt MD REFERRING Kaleb Leavitt MD PERFORMING [facility] VIDEO GAME PRODUCER Selin Whitaker RT, RDMS, RDCS Procedure:ECHO 2D Order:ECHO 2D Accession COMPLETE (TTE) COMPLETE (TTE) Number:[id number] Indications: Shortness of breath 786.05. Study data: [...] Reviewed and confirmed by Kaleb Leavitt MD [id number] Procedure Note Kaleb Leavitt MD - 03/10/2018 * [place] [facility]* [address] [place] [address] Transthoracic Echocardiography Patient: Sandee Flowers MR #: [id number] Account: Study Date: 03/10/2018 Gender: F Age: 42 : 1975 Room: [facility] ATTENDING Kaleb Leavitt MD ORDERING Kaleb Leavitt MD REFERRING Kaleb Leavitt MD PERFORMING [facility] VIDEO GAME PRODUCER Selin Whitaker RT, RDMS, RDCS Procedure:ECHO 2D Order:ECHO 2D Accession COMPLETE (TTE) COMPLETE (TTE) Number:[id number] Indications: Shortness of breath 786.05. Study data: [...] Reviewed and confirmed by Kaleb Leavitt MD [id number] us Kaleb Leavitt MD CV ECHO ORDERABLES Final Resul t documented in this encounter Visit Diagnoses Diagnosis SOB (shortness of breath)- Primary Shortness of breath Palpitations Other chest pain Abnormal ECG Nonspecific abnormal electrocardiogram (ECG) (EKG) SOB (shortness of breath) Shortness of breath Palpitations Other chest pain Abnormal ECG Nonspecific abnormal electrocardiogram (ECG) (EKG) documented in this encounter Care Teams Lead Refiner Relationship Specialty Start Date End Date Roxanne Michel MD [address] [address] PCP - General Family Medicine 03/06/18 documented as of this encounter
--- OUTSIDE RECORDS SUMMARY | 2024-12-17 14:23 | XMS_ITS | Encounter Summary ---
Author Organization [facility] Address [address] [place] [address] Care Team Providers Care Radiophone Operator Name Role Phone Roxanne Funez MD Primary Care Provider [phone] Roxanne Michel MD Primary Care Provider [phone] Source Comments This information has been disclosed [...] release of HIV test results or diagnoses. [id number] Reason for Referral * Imaging/Cardiovascular Scan (Routine) - Closed Specialty Diagnoses / Procedures Referred By Contac t Referred To Contact Radiology Diagnoses Other chest pain ECG abnormal Procedures NM Myocardial perf stress and rest SPECT Rc Leavitt MD Phone: tel: fax: Referral ID Status Reason Start Date Expiration Date Visits Re quested Visits Authorized [id number] Closed 02/26/2018 03/26/2018 2 2 Encounter Details Date Type Department Care Team (Late st Contact Info) Description 02/21/2018 Orders Only [facility] [address] [place] [phone] Rc Leavitt MD [address] [place] [address] Other chest pain (Primary Dx); ECG abnormal [...] the treadmill under the supervision of the beam department supervisor. > 85% target heart rate achieved and [...] on the treadmill underthe supervision of the beam department supervisor. > 85% target heart rate achieved andexercise [...] (EKG) documented in this encounter Care Teams Radiophone Operator Relationship Specialty Start Date End Date Roxanne Funez MD [address] [place] [address] PCP - General Family Medicine 03/28/17 03/05/18 Roxanne Michel MD [address] [address] PCP - General Family Medicine 03/06/18 documented as of this encounter
--- OUTSIDE RECORDS SUMMARY | 2024-12-17 14:23 | XMS_ITS | Clinical Summary ---
Author Organization [facility] Address [address], [address] [place] [address] Care Team Providers Care Veneer Joiner Name Role Phone Taco Miranda MD Primary Care Provider [phone] Allergies Active Allergy Reactions Criticality Noted Date [...] EDT - 11/23/2024 11:[address] [facility] Emergency Department [address] [place] [address] Elan Coffey MD Price, Brandon M, MD [...] 2018 FIT/FOBT: Average risk 2018 Fecal-DNA (Cologuard): [place] ge risk 2018 Sigmoidoscopy/CT colonography 2018 Pneumococcal [...] - 2.0 mmol/L 11/23/2024 10:44 AM EDT [facility] Blood BLOOD SPECIMEN / Unknown 11/23/2024 10:27 AM EDT 11/23/2024 10:27 AM EDT us Rahul Felix MD CHEMISTRY ORDERABLES Final Re sult [facility] [address] [place] [address], [facility] [phone] * US PELVIS COMPLETE NON-OB TRANSABD/TRANSVAG W [...] Hysterectomy. us Rahul Felix MD [facility] ORDERABLES Final Resul t [...] enterocolitica DNA detected Normal Range: None detected [facility] STOOL SPECIMEN / Unknown 11/23/2024 7:20 AM EDT 11/23/2024 7:25 AM EDT [facility] - 11/24/2024 1:58 PM EDT ORDER#: [id number] ORDERED BY: ELAN COFFEY SOURCE: Stool COLLECTED: 11/23/24 07:20 ANTIBIOTICS AT JAMES.: RECEIVED : 11/23/24 07:25 Elan Coffey MD MICROBIOLOGY - GENERAL ORD ERABLES Final Result Performing Organization Address City/[facility]/ZIP Co de Phone Number [facility] [address] [place] [address], [facility] [phone] * Clostridium difficile toxin/antigen (11/23/2024 7:20 AM EDT) C.diff Toxin/Antigen Negative for Clostridium difficile antigen and toxin Normal Range: Negative [facility] Stool STOOL SPECIMEN / Unknown 11/23/2024 7:20 AM EDT 11/23/2024 7:24 AM EDT [facility] - 11/23/2024 8:20 AM EDT ORDER#: [id number] ORDERED BY: ELAN COFFEY SOURCE: Stool stool COLLECTED: 11/23/24 07:20 ANTIBIOTICS AT JAMES.: RECEIVED : 11/23/24 07:24 Collect White vial (sterile container) Elan Coffey MD MICROBIOLOGY - GENERAL ORD ERABLES Final Result [facility] [address] [place] [address], [facility] [phone] * CT ABDOMEN PELVIS W IV CONTRAST [...] Calculation (Bazett) 447 ms SWOH MUSE P [place] 72 degrees SWOH MUSE R [place] 56 degrees SWOH MUSE T [place] 46 degrees SW[facility] MUSE Diagnosis Normal sinus rhythmNonspecific ST abnormalityAbnormal ECGWhen compared with ECG of 02-AUG-2021 02:25,No significant change was foundConfirmed by PATRICIA VENTURA MD ([id number]) on 11/23/2024 7:56:06 AM [facility] MUSE 11/23/2024 5:00 AM EDT 11/23/2024 7:56 AM EDT us Elan Coffey MD ECG ORDERABLES Final Resu lt [facility] MUSE * (ABNORMAL) Comprehensive Metabolic Panel w/ Reflex to MG (11/23/2024 5:00 AM EDT) Sodium 140 136 - 145 mmol/L 11/23/2024 5:28 AM EDT [facility] Potassium reflex Magnesium 3.7 3.5 - 5.1 mmol/L 11/23/2024 5:28 AM EDT [facility] Comment: Specimen hemolysis has exceeded the interference as defined by Yinka. Value may be falsely increased. Suggest recollection if clinically indicated. Chloride 100 99 - 110 mmol/L 11/23/2024 5:28 AM [facility] CO2 23 21 - 32 mmol/L 11/23/2024 5:38 AM [facility] Anion Gap 17(H) 3 - 16 11/23/2024 5:38 AM [facility] Glucose 111(H) 70 - 99 mg/dL 11/23/2024 5:39 AM [facility] BUN 13 7 - 20 mg/dL 11/23/2024 5:39 AM [facility] Creatinine 0.7 0.6 - 1.1 mg/dL 11/23/2024 5:39 AM [facility] Est, Glom Filt Rate >90 >60 11/23/2024 5:39 AM [facility] Comment: Pediatric calculator link https://www.kidney.org/professionals/kdoqi/gfr_calculatorped Effective [...] 8.3 - 10.6 mg/dL 11/23/2024 5:38 AM [facility] Total Protein 7.0 6.4 - 8.2 g/dL 11/23/2024 5:39 AM [facility] Albumin 4.3 3.4 - 5.0 g/dL 11/23/2024 5:38 AM [facility] Albumin/Globulin Ratio 1.6 1.1 - 2.2 11/23/2024 5:39 AM [facility] Total Bilirubin 0.3 0.0 - 1.0 mg/dL 11/23/2024 5:38 AM [facility] Alkaline Phosphatase 79 40 - 129 U/L 11/23/2024 5:38 AM T [facility] ALT 13 10 - 40 U/L 11/23/2024 5:38 AM EDT [facility] AST 28 15 - 37 U/L 11/23/2024 5:38 AM T [facility] Comment: Specimen hemolysis has exceeded the interference as defined by Yinka. Value may be falsely increased. Suggest recollection if clinically indicated. Blood BLOOD SPECIMEN / Unknown 11/23/2024 5:00 AM EDT 11/23/2024 5:11 AM EDT us Elan Coffey MD CHEMISTRY ORDERABLES Final Result [facility] [address] [place] [address], [facility] [phone] * (ABNORMAL) CBC with Auto Differential (11/23/2024 5:00 AM EDT) WBC 17.0(H) 4.0 - 11.0 K/uL 11/23/2024 5:13 AM [facility] RBC 5.00 4.00 - 5.20 M/uL 11/23/2024 5:13 AM [facility] Hemoglobin 14.8 12.0 - 16.0 g/dL 11/23/2024 5:13 AM [facility] Hematocrit 43.3 36.0 - 48.0 % 11/23/2024 5:13 AM [facility] MCV 86.6 80.0 - 100.0 fL 11/23/2024 5:13 AM [facility] MCH 29.7 26.0 - 34.0 pg 11/23/2024 5:13 AM [facility] MCHC 34.3 31.0 - 36.0 g/dL 11/23/2024 5:13 AM [facility] RDW 12.4 12.4 - 15.4 % 11/23/2024 5:13 AM [facility] Platelets 213 135 - 450 K/uL 11/23/2024 5:13 AM [facility] MPV 8.5 5.0 - 10.5 fL 11/23/2024 5:13 AM [facility] PLATELET SLIDE REVIEW Adequate 11/23/2024 7:53 AM [facility] SLIDE REVIEW see below 11/23/2024 7:53 AM [facility] Comment:Slide review agrees with reported results Neutrophils % 84.0 % 11/23/2024 7:53 AM [facility] Lymphocytes % 9.0 % 11/23/2024 7:53 AM [facility] Monocytes % 3.0 % 11/23/2024 7:53 AM [facility] Eosinophils % 0.0 % 11/23/2024 7:53 AM [facility] Basophils % 0.0 % 11/23/2024 7:53 AM [facility] Neutrophils Absolute 15.0(H) 1.7 - 7.7 K/uL 11/23/2024 7:53 AM [facility] Lymphocytes Absolute 1.5 1.0 - 5.1 K/uL 11/23/2024 7:53 AM [facility] Monocytes Absolute 0.5 0.0 - 1.3 K/uL 11/23/2024 7:53 AM [facility] Eosinophils Absolute 0.0 0.0 - 0.6 K/uL 11/23/2024 7:53 AM [facility] Basophils Absolute 0.0 0.0 - 0.2 K/uL 11/23/2024 7:53 AM [facility] Bands Relative 4 0 - 7 % 11/23/2024 7:53 AM [facility] RBC Morphology Normal 11/23/2024 7:53 AM [facility] Blood BLOOD SPECIMEN / Unknown 11/23/2024 5:00 AM EDT 11/23/2024 5:11 AM EDT Elan Coffey MD HEMATOLOGY ORDERABLES Sandi l Result [facility] [address] [place] [address] * Troponin (11/23/2024 5:00 AM EDT) Troponin, High Sensitivity <6 0 - 14 ng/L 11/23/2024 5:37 AM EDT [facility] Comment: The high-sensitivity troponin T result should not be compared with other troponin methodologies. Blood BLOOD SPECIMEN / Unknown 11/23/2024 5:00 AM EDT 11/23/2024 5:11 AM EDT Elan Coffey MD CHEMISTRY ORDERABLES Final Result Performing Organization Address [facility] Co de Phone Number [facility] [address] [place] [address] * (ABNORMAL) Urinalysis with Microscopic (11/23/2024 5:00 AM EDT) Color, UA Yellow Straw/Yellow 11/23/2024 5:20 AM EDT [facility] Clarity, UA Clear Clear 11/23/2024 5:20 AM EDT [facility] Glucose, Ur Negative Negative mg/dL 11/23/2024 5:20 AM EDT [facility] Bilirubin, Urine SMALL(A) Negative 11/23/2024 5:20 AM EDT [facility] Ketones, Urine Negative Negative mg/dL 11/23/2024 5:20 AM EDT [facility] Specific Rainbow, UA >=1.030 1.005 - 1.030 11/23/2024 5:20 AM EDT [facility] Blood, Urine MODERATE(A) Negative 11/23/2024 5:20 AM [facility] pH, Urine 5.5 5.0 - 8.0 11/23/2024 5:20 AM [facility] Protein, UA 100(A) Negative mg/dL 11/23/2024 5:20 AM [facility] Urobilinogen, Urine 1.0 <2.0 E.U./dL 11/23/2024 5:20 AM [facility] Nitrite, Urine Negative Negative 11/23/2024 5:20 AM [facility] Leukocyte Esterase, Urine TRACE(A) Negative 11/23/2024 5:20 AM [facility] Microscopic Examination YES 11/23/2024 8:38 AM [facility] Urine Type NotGiven 11/23/2024 5:14 AM [facility] Hyaline Casts, UA 0-2 0 - 2 /LPF 11/23/2024 5:51 AM [facility] Mucus, UA 2+(A) None Seen /LPF 11/23/2024 5:51 AM [facility] WBC, UA 10-20(A) 0 - 5 /HPF 11/23/2024 5:51 AM [facility] RBC, UA 0-2 0 - 4 /HPF 11/23/2024 5:51 AM [facility] Epithelial Cells, UA 0-1 0 - 5 /HPF 11/23/2024 5:51 AM [facility] Bacteria, UA 1+(A) None Seen /HPF 11/23/2024 5:51 AM [facility] Crystals, UA 1+ Ca. Oxalate(A) None Seen /HPF 11/23/2024 5:51 AM [facility] Urine URINE SPECIMEN / Unknown 11/23/2024 5:00 AM EDT 11/23/2024 5:15 AM EDT Elan Coffey MD URINE ORDERABLES Final Res ult [facility] [address] [place] [address], [facility] [phone] * Culture, Urine (11/23/2024 5:00 AM EDT) Urine Culture, Routine No growth at 18 to 36 hours [facility] Urine URINE SPECIMEN / Unknown 11/23/2024 5:00 AM EDT 11/23/2024 7:44 AM EDT Narrative [facility] - 11/24/2024 7:29 AM EDT ORDER#: [id number] ORDERED BY: ELAN COFFEY SOURCE: Urine Clean Catch COLLECTED: 11/23/24 05:00 ANTIBIOTICS AT JAMES.: RECEIVED : 11/23/24 07:44 Elan Coffey MD MICROBIOLOGY - GENERAL ORD ERABLES Final Result Performing Organization Address City/[facility]/ZIP Co de Phone Number [facility] [address] [place] [address], [facility] [phone] * Lipase (11/23/2024 5:00 AM EDT) Lipase 43.0 13.0 - 60.0 U/L 11/23/2024 5:39 AM EDT [facility] Blood BLOOD SPECIMEN / Unknown 11/23/2024 5:00 AM EDT 11/23/2024 5:11 AM EDT Elan Coffey MD CHEMISTRY ORDERABLES Final Result Performing Organization Address City/[facility]/ZIP Co de Phone Number [facility] [address] [place] [address], [facility] [phone] from Last [address] [place] [id number] [place] Care Teams Veneer Joiner Relationship Specialty Start Date End Date Taco Miranda MD [address] [place], [place] [address] PCP - General Pediatrics 08/02/21
--- OUTSIDE RECORDS SUMMARY | 2024-12-17 14:23 | XMS_ITS | Clinical Summary ---
Author Organization [facility] Address [address] [place] [address] Care Team Providers Care Business Insight And Analytics Manager Name Role Phone Sumi Arboleda JOSÉ MIGUEL [...] INFLUENZA VACCINE 02/17/2025 Insurance HMO Care Teams Business Insight And Analytics Manager Relationship Specialty Start Date End Date Sumi Arboleda APRN [address] [place] [address] PCP - General Family Medicine 02/17/24
--- OUTSIDE RECORDS SUMMARY | 2024-12-17 14:23 | XMS_ITS | Encounter Summary ---
Author Organization [facility] Address [address] [place] [address] Care Team Providers Care Primer Assembler Name Role Phone Roxanne Funez MD Primary Care Provider [phone] Roxanne Michel MD Primary Care Provider [phone] Source Comments This information has been disclosed [...] release of HIV test results or diagnoses. [id number] Health Encounter Details Date Type Department Care Team (Late st Contact Info) Description 04/01/2017 Orders Only [facility] Test Referral [facility] [address] [place] [phone] Argelia Landon STD exposure (Primary Dx) Social [...] Swab Negative Negative 04/02/2017 2:22 PM EST [facility] Neisseria gonorrhoeae DNA Swab Negative Negative 04/02/2017 2:22 PM EST [facility] Comment: The presence of Chlamydia trachomatis and Neisseria gonorrhoeae DNA is detected by a U.S. Food and Drug Administration-approved amplification assay. Although performance of this test on male urethral swabs has not been approved by the FDA, the performance characterisitics for testing these samples have been determined by the [facility]. The laboratory is regulated under the [...] FLUIDS AND STOOLS ORDERABLE S Final Result [facility] [address] documented in this encounter Visit Diagnoses Diagnosis STD exposure- Primary documented in this encounter Care Teams Primer Assembler Relationship Specialty Start Date End Date Roxanne Funez MD [address] [place] [address] PCP - General Family Medicine 03/28/17 03/05/18 Roxanne Michel MD [address] [address] PCP - General Family Medicine 03/06/18 documented as of this encounter
== END 2024-12-17 23:59 | disposition home or self-care (01) ==
LOC: LAB 14:17
PROVIDERS: PCP Nurse Practitioner Family; Visit Provider Obstetrics & Gynecology
DX: N83.209 Unspecified ovarian cyst, unspecified side (principal); N95.1 Menopausal and female climacteric states
CPT/HCPCS: 36415

== ENCOUNTER 2024-12-24 10:08 | Outpatient (CLI) | payer OTHER, SELFPAY ==
--- OUTSIDE RECORDS SUMMARY | 2024-11-23 04:44 | XMS_ITS | Encounter Summary ---
Author Organization [facility] Address [address], [address] [place] [address] Care Team Providers Care Bobbin Coil Winder Name Role Phone Taco Miranda MD Primary Care Provider [phone] Reason for Visit * Reason Comments Abdominal Pain Patient states she a te chipolte tonight and vomiting started after eating and now she has liquid diarrhea. Encounter Details Date Type Department Care Team (Late st Contact Info) Description 11/23/2024 4:44 AM EDT - 11/23/2024 11:45 AM EDT Emergency [facility] Emergency Department [address] [place] [address] Jemima Coffey MD [address] [place] [address] Rahul Felix MD [address] [place] [address] Enterocolitis (Primary Dx); Nausea vomiting and diarrhea; Pelvic cyst in female; Lactic acidosis Discharge Disposition: Home or Self Care Social History Tobacco Use Types Packs/Day Years Used Date Smoking Tobacco: Never Smokeless Tobacco: Never Alcohol Use Standard Drinks/Week Comments Not Currently 0 (1 standard drink = 0.6 oz pur e alcohol) AUDIT-C Answer Date Recorded Q1: How often do you have a drink containing alcohol? Never 11/23/2024 Q2: How many drinks containi ng alcohol do you have on a typical day when you are drinking? Patient does not drink Q3: How often do you have si x or more drinks on one occasion? Never 11/23/2024 Interpersonal Safety Domain Source: IP Abuse Scr eening Answer Date Recorded Physical abuse Denies 11/23/2024 Verbal abuse Denies 11/23/2024 Emotional abuse Denies 11/23/2024 Financial abuse Denies 11/23/2024 Sexual abuse Denies 11/23/2024 Comments No Sex and Gender Information Value Date Recorded Sex Assigned at Not on file Legal Sex Female 2:09 AM EDT Gender Identity Not on file Sexual Orientation Not on file documented as of this encounter Last Filed Vital Signs Vital Sign Reading Time Taken Comments Blood Pressure 113/71 11/23/2024 11:40 AM EDT Pulse 70 11/23/2024 11:40 AM EDT Temperature 36.7 C (98.1 F) 11/23/2024 11:40 AM EDT Respiratory Rate 16 11/23/2024 11:40 AM EDT Oxygen Saturation 100% 11/23/2024 11:40 AM EDT Inhaled Oxygen Concentration - - Weight 59 kg (130 lb) 11/23/2024 5:16 AM EDT Height 165.1 cm (5' 5 ) 11/23/2024 5:16 AM EDT Body Mass Index 21.63 11/23/2024 5:16 AM EDT documented in this encounter Functional Status documented as of this encounter Discharge Instructions * Discharge Instructions* Rahul Felix MD - 11/23/2024 6:48 AM EDT Follow-up with your primary doctor within the next 1 to 2 days for reevaluation. Return to emergency department for worsening abdominal pain uncontrolled nausea vomiting diarrhea, lightness or dizziness, chest pain or shortness of breath, fevers or any new change or worsening symptoms. We discussedyour elevated white count and lactate. Discussed with you we will hold off on blood cultures but ple ase return to the emergency department for any worsening symptoms. Follow-up with your medical records field technician for outpatient ultrasound of pelvic cyst with recommended repeat ultrasound in 6 months per radiologist but talk to your medical records field technician to see if anything sooner is needed. IMPRESSION: 1. Liquid stool noted within the colon, with some colonic prominent wall thickness as well as prominent small bowel mucosal fold thickening. Findings are suggestive of enterocolitis. 2. Simple fluid attenuation cystic lesion in the midline of the pelvis, compressing the adjacent bladder. This measures 5.7 x 5.1 x 4.3 cm in transverse, AP and craniocaudal dimensions respectively. The right ovary is not well seen. Uncertain if this may represent an ovarian or possible paraovarian cyst. Recommend further evaluation with pelvic ultrasound. * Attachments The following attachments cannot be sent through Care Everywhere. * Colitis (Luxembourger) documented in this encounter Medications at Time of Discharge ondansetron (ZOFRAN-ODT) 4 MG disintegrating tablet Take 1 tablet by mouth every 6 hours as needed for Nausea or Vomiting 21 tablet 11/23/2024 dicyclomine (BENTYL) 20 MG tablet Take 1 tablet by mouth 4 times daily for 5 days 20 tablet 11/23/2024 documented as of this encounter Plan of Treatment Not on file documented as of this encounter Procedures Procedure Name Priority Date/Time Associated Diagnosis Comments LACTIC ACID Timed 11/23/2024 10:27 AM EDT US PELVIS COMPLETE NON-OB TRANSABD/TRANSVAG W DOPPLER STAT 11/23/2024 9:21 AM EDT LACTIC ACID STAT 11/23/2024 7:40 AM EDT GASTROINTESTINAL PANEL, MOLECULAR STAT 11/23/2024 7:20 AM EDT C DIFF TOXIN/ANTIGEN STAT 11/23/2024 7:[address] ABDOMEN PELVIS W IV CONTRAST STAT 11/23/2024 6:04 AM EDT EKG 12-LEAD Routine 11/23/2024 5:00 AM EDT COMPREHENSIVE METABOLIC PANEL W/ REFLEX TO MG FOR LOW K STAT 11/23/2024 5:00 AM EDT CBC WITH AUTO DIFFERENTIAL STAT 11/23/2024 5:00 AM EDT TROPONIN STAT 11/23/2024 5:00 AM EDT URINALYSIS WITH MICROSCOPIC STAT 11/23/2024 5:00 AM EDT CULTURE, URINE Add-On 11/23/2024 5:00 AM EDT LIPASE STAT 11/23/2024 5:00 AM EDT LACTIC ACID STAT 11/23/2024 5:00 AM EDT documented in this encounter Results * Lactic Acid (11/23/2024 10:27 AM EDT) Lactic Acid 1.9 0.4 - 2.0 mmol/L 11/23/2024 10:44 AM EDT [facility] Blood BLOOD SPECIMEN / Unknown 11/23/2024 10:27 AM EDT 11/23/2024 10:27 AM EDT us Rahul Felix MD CHEMISTRY ORDERABLES Final Re sult [facility] [address] [phone] * US PELVIS COMPLETE NON-OB TRANSABD/TRANSVAG W DOPPLER (11/23/2024 9:21 AM EDT) Anatomical Region Laterality Modality Pelvis Ultrasound 11/23/2024 10:1 0 AM EDT Impressions 11/23/2024 10:16 AM EDT Simple appearing cystic lesion within the central pelvis which may arise from the right adnexa, measuring up to 5.2 cm, with slight mass effect on the adjacent urinary bladder. Lesion is likely benign. Follow-up pelvic ultrasound recommended in 6 months to document resolution. No normal ovarian tissue identified. No free fluid. Hysterectomy. Narrative 11/23/2024 10:16 AM EDT EXAMINATION: TRANSABDOMINAL AND TRANSVAGINAL ULTRASOUND OF THE PELVIS WITH COLOR DOPPLER FLOW EVALUATION 11/23/2024 TECHNIQUE: Transabdominal and transvaginal pelvic Duplex ultrasound using B-mode/powers scaled imaging, Doppler spectral analysis and color flow Doppler was obtained. COMPARISON: 11/23/2024 HISTORY: ORDERING SYSTEM PROVIDED HISTORY: right lower abdominal fluid collection, radiologist recommended US TECHNOLOGIST PROVIDED HISTORY: Reason for exam:->right lower abdominal fluid collection, radiologist recommended US FINDINGS: Measurements: Uterus: Hysterectomy. Right Ovary:Not visualized Left Ovary: Not visualized Ultrasound Findings: Uterus: Hysterectomy. Right Ovary: Right ovary is not visualized. Right adnexal cystic lesion measuring 5.3 x 3.9 x 5.2 cm. Left Ovary: Left ovary is not visualized. Free Fluid: No evidence of free fluid. Procedure Note Edwin Edmonds MD - 11/23/2024 EXAMINATION: TRANSABDOMINAL AND TRANSVAGINAL ULTRASOUND OF THE PELVIS WITH COLORDOPPLER FLOW EVALUATION 11/23/2024 TECHNIQUE: Transabdominal and transvaginal pelvic Duplex ultrasound usingB-mode/powers scaled imaging, Doppler spectral analysis and color flow Doppler wasobtained. COMPARISON: 11/23/2024 HISTORY: ORDERING SYSTEM PROVIDED HISTORY: right lower abdominal fluidcollection, radiologist recommended US TECHNOLOGIST PROVIDED HISTORY: Reason for exam:->right lower abdominal fluid collection, radiologist recommended US FINDINGS: Measurements: Uterus: Hysterectomy. Right Ovary:Not visualized Left Ovary: Not visualized Ultrasound Findings: Uterus: Hysterectomy. Right Ovary: Right ovary is not visualized. Right adnexal cystic lesion measuring 5.3 x 3.9 x 5.2 cm. Left Ovary: Left ovary is not visualized. Free Fluid: No evidence of free fluid. IMPRESSION: Simple appearing cystic lesion within the central pelvis which may arisefrom the right adnexa, measuring up to 5.2 cm, with slight mass effect on the adjacent urinary bladder. Lesion is likely benign. Follow-up pelvic ultrasound recommended in 6 months to document resolution. No normalovarian tissue identified. No free fluid. Hysterectomy. us Rahul Felix MD [facility] US ORDERABLES Final Resul t * (ABNORMAL) Lactic Acid (11/23/2024 7:40 AM EDT) Lactic Acid 3.2(H) 0.4 - 2.0 mmol/L 11/23/2024 7:56 AM EDT [facility] Blood BLOOD SPECIMEN / Unknown 11/23/2024 7:40 AM EDT 11/23/2024 7:40 AM EDT Jemima Coffey MD CHEMISTRY ORDERABLES Final Result [facility] [address] [place] [address], [facility] [phone] * GI Bacterial Pathogens By PCR (11/23/2024 7:20 AM EDT) Pathologist [facility] GI Bacterial Pathogens By PCR No Shigella spp/EIEC DNA detected No Shiga toxin-producing gene(s) detected No Campylobacter spp. (jejuni and coli)DNA detected No Salmonella spp. DNA detected No Vibrio vulnificus/parahae molyticus/cholerae DNA detected No Plesiomonas shigelloides DNA detected No Enterotoxigenic E. coli (ETEC) DNA detected No Yersinia enterocolitica DNA detected Normal Range: None detected [facility] STOOL SPECIMEN / Unknown 11/23/2024 7:20 AM EDT 11/23/2024 7:25 AM EDT Narrative [facility] - 11/24/2024 1:58 PM EDT ORDER#: [id number] ORDERED BY: JEMIMA COFFEY SOURCE: Stool COLLECTED: 11/23/24 07:20 ANTIBIOTICS AT JAMES.: RECEIVED : 11/23/24 07:25 Jemima Coffey MD MICROBIOLOGY - GENERAL ORD ERABLES Final Result [facility] [address] [place] [address], [facility] [phone] * Clostridium difficile toxin/antigen (11/23/2024 7:20 AM EDT) C.diff Toxin/Antigen Negative for Clostridium difficile antigen and toxin Normal Range: Negative [facility] Stool STOOL SPECIMEN / Unknown 11/23/2024 7:20 AM EDT 11/23/2024 7:24 AM EDT Narrative [facility] - 11/23/2024 8:20 AM EDT ORDER#: [id number] ORDERED BY: JEMIMA COFFEY SOURCE: Stool stool COLLECTED: 11/23/24 07:20 ANTIBIOTICS AT JAMES.: RECEIVED : 11/23/24 07:24 Collect White vial (sterile container) Jemima Coffey MD MICROBIOLOGY - GENERAL ORD ERABLES Final Result [facility] [address] [place] [address], [facility] [phone] * CT ABDOMEN PELVIS W IV CONTRAST Additional Contrast? None (11/23/2024 6:04 AM EDT) Anatomical Region Laterality Modality Abdomen, Pelvis, Hip Computed To mography 11/23/2024 6:21 AM EDT Impressions 11/23/2024 6:37 AM EDT 1. Liquid stool noted within the colon, with some colonic prominent wall thickness as well as prominent small bowel mucosal fold thickening. Findings are suggestive of enterocolitis. 2. Simple fluid attenuation cystic lesion in the midline of the pelvis, compressing the adjacent bladder. This measures 5.7 x 5.1 x 4.3 cm in transverse, AP and craniocaudal dimensions respectively. The right ovary is not well seen. Uncertain if this may represent an ovarian or possible paraovarian cyst. Recommend further evaluation with pelvic ultrasound. Narrative 11/23/2024 6:37 AM EDT EXAMINATION: CT OF THE ABDOMEN AND PELVIS WITH CONTRAST 11/23/2024 5:46 am TECHNIQUE: CT of the abdomen and pelvis was performed with the administration of intravenous contrast. Multiplanar reformatted images are provided for review. Automated exposure control, iterative reconstruction, and/or weight based adjustment of the mA/kV was utilized to reduce the radiation dose to as low as reasonably achievable. COMPARISON: None. HISTORY: ORDERING SYSTEM PROVIDED HISTORY: upper abdomianl pain, n/v, diarrhea TECHNOLOGIST PROVIDED HISTORY: Reason for exam:->upper abdomianl pain, n/v, diarrhea Additional Contrast?->None Decision Support Exception - unselect if not a suspected or confirmed emergency medical condition->Emergency Medical Condition (MA) Reason for Exam: upper abd pain, n/v FINDINGS: Lower Chest: No distal esophageal thickening. No acute cardiac abnormality is seen. Calcified granulomatous change in the lung bases. Organs: No enhancing mass in the liver or spleen. No adrenal mass. No pancreatic mass or ductal dilation. Cholecystectomy clips. No suspicious renal mass, renal calculi, or hydroureteronephrosis. GI/Bowel: Liquid stool noted within the colon, with some colonic prominent wall thickness as well as prominent small bowel mucosal fold thickening. No ileus or obstruction. Normal appendix. Pelvis: No pelvic mass. No pelvic hemorrhage. Decompressed bladder. Hysterectomy. The left ovary appears unremarkable. There is a simple fluid attenuation cystic lesion seen in the midline of the pelvis, compressing the adjacent bladder. This measures 5.7 x 5.1 x 4.3 cm in transverse, AP and craniocaudal dimensions respectively. Peritoneum/Retroperitoneum: No abdominal aortic aneurysm. No dissection. No periaortic or mesenteric lymphadenopathy. No bowel herniation. Bones/Soft Tissues: No acute osseous abnormality is identified. Mild to moderate degenerative disc disease. Procedure Note Devin Hinson MD - 11/23/2024 EXAMINATION: CT OF THE ABDOMEN AND PELVIS WITH CONTRAST 11/23/2024 5:46 am TECHNIQUE: CT of the abdomen and pelvis was performed with the administration of intravenous contrast. Multiplanar reformatted images are provided forreview. Automated exposure control, iterative reconstruction, and/or weightbased adjustment of the mA/kV was utilized to reduce the radiation dose to aslow as reasonably achievable. COMPARISON: None. HISTORY: ORDERING SYSTEM PROVIDED HISTORY: upper abdomianl pain, n/v, diarrhea TECHNOLOGIST PROVIDED HISTORY: Reason for exam:->upper abdomianl pain, n/v, diarrhea Additional Contrast?->None Decision Support Exception - unselect if not a suspected or confirmed emergency medical condition->Emergency Medical Condition (MA) Reason for Exam: upper abd pain, n/v FINDINGS: Lower Chest: No distal esophageal thickening. No acute cardiacabnormality is seen. Calcified granulomatous change in the lung bases. Organs: No enhancing mass in the liver or spleen. No adrenal mass. No pancreatic mass or ductal dilation. Cholecystectomy clips. Nosuspicious renal mass, renal calculi, or hydroureteronephrosis. GI/Bowel: Liquid stool noted within the colon, with some colonicprominent wall thickness as well as prominent small bowel mucosal fold thickening.No ileus or obstruction. Normal appendix. Pelvis: No pelvic mass. No pelvic hemorrhage. Decompressed bladder. Hysterectomy. The left ovary appears unremarkable. There is a simplefluid attenuation cystic lesion seen in the midline of the pelvis, compressingthe adjacent bladder. This measures 5.7 x 5.1 x 4.3 cm in transverse, APand craniocaudal dimensions respectively. Peritoneum/Retroperitoneum: No abdominal aortic aneurysm. No dissection.No periaortic or mesenteric lymphadenopathy. No bowel herniation. Bones/Soft Tissues: No acute osseous abnormality is identified. Mild to moderate degenerative disc disease. IMPRESSION: 1. Liquid stool noted within the colon, with some colonic prominent wall thickness as well as prominent small bowel mucosal fold thickening.Findings are suggestive of enterocolitis. 2. Simple fluid attenuation cystic lesion in the midline of the pelvis, compressing the adjacent bladder. This measures 5.7 x 5.1 x 4.3 cm in transverse, AP and craniocaudal dimensions respectively. The right ovaryis not well seen. Uncertain if this may represent an ovarian or possible paraovarian cyst. Recommend further evaluation with pelvic ultrasound. us Jemima Coffey MD IMG CT ORDERABLES Final Re sult * EKG 12 Lead (11/23/2024 5:00 AM EDT) Ventricular Rate 94 BPM [facility] MUSE Atrial Rate 94 BPM [facility]USE P-R Interval 154 ms [facility] QRS Duration 84 ms [facility] Q-T Interval 358 ms [facility]USE QTc Calculation (Bazett) 447 ms [facility]USE P [place] 72 degrees [facility] MUSE R [place] 56 degrees [facility] MUSE T [place] 46 degrees [facility] MUSE Diagnosis Normal sinus rhythmNonspecific ST abnormalityAbnormal ECGWhen compared with ECG of 02-AUG-2021 02:25,No significant change was foundConfirmed by PATRICIA VENTURA MD ([id number]) on 11/23/2024 7:56:06 AM NATALIE MUSE 11/23/2024 5:00 AM EDT 11/23/2024 7:56 AM EDT Jemima Coffey MD ECG ORDERABLES Final Resu lt Performing Organization Address City/[facility]/ZIP Co de Phone Number NATALIE NEWTON * Culture, Urine (11/23/2024 5:00 AM EDT) Urine Culture, Routine No growth at 18 to 36 hours [facility] Urine URINE SPECIMEN / Unknown 11/23/2024 5:00 AM EDT 11/23/2024 7:44 AM EDT Narrative [facility] - 11/24/2024 7:29 AM EDT ORDER#: [id number] ORDERED BY: JEMIMA COFFEY SOURCE: Urine Clean Catch COLLECTED: 11/23/24 05:00 ANTIBIOTICS AT JAMES.: RECEIVED : 11/23/24 07:44 Jemima Coffey MD MICROBIOLOGY - GENERAL ORD ERABLES Final Result Performing Organization Address [facility] Co de Phone Number [facility] [address] [phone] * (ABNORMAL) Lactic Acid (11/23/2024 5:00 AM EDT) Lactic Acid 2.5(H) 0.4 - 2.0 mmol/L 11/23/2024 5:36 AM EDT [facility] Blood BLOOD SPECIMEN / Unknown 11/23/2024 5:00 AM EDT 11/23/2024 5:16 AM EDT Jemima Coffey MD CHEMISTRY ORDERABLES Final Result Performing Organization Address City/[facility]/ZIP Co de Phone Number [facility] [address] [place] [address] * Troponin (11/23/2024 5:00 AM EDT) [facility] Troponin, High Sensitivity <6 0 - 14 ng/L 11/23/2024 5:37 AM EDT [facility] Comment: The high-sensitivity troponin T result should not be compared with other troponin methodologies. Blood BLOOD SPECIMEN / Unknown 11/23/2024 5:00 AM EDT 11/23/2024 5:11 AM EDT us Jemima Coffey MD CHEMISTRY ORDERABLES Final Result [facility] [address] [place] [address] * (ABNORMAL) Urinalysis with Microscopic (11/23/2024 5:00 AM EDT) Pathologist [facility] Color, UA Yellow Straw/Yellow 11/23/2024 5:20 AM EDT [facility] Clarity, UA Clear Clear 11/23/2024 5:20 AM EDT [facility] Glucose, Ur Negative Negative mg/dL 11/23/2024 5:20 AM EDT [facility] Bilirubin, Urine SMALL(A) Negative 11/23/2024 5:20 AM EDT [facility] Ketones, Urine Negative Negative mg/dL 11/23/2024 5:20 AM EDT [facility] Specific [place], UA >=1.030 1.005 - 1.030 11/23/2024 5:20 AM EDT [facility] Blood, Urine MODERATE(A) Negative 11/23/2024 5:[facility] pH, Urine 5.5 5.0 - 8.0 11/23/2024 5:20 AM EDT [facility] Protein, UA 100(A) Negative mg/dL 11/23/2024 5:20 AM EDT [facility] Urobilinogen, Urine 1.0 <2.0 E.U./dL 11/23/2024 5:20 AM EDT [facility] Nitrite, Urine Negative Negative 11/23/2024 5:20 AM EDT [facility] Leukocyte Esterase, Urine TRACE(A) Negative 11/23/2024 5:20 AM EDT [facility] Microscopic Examination YES 11/23/2024 8:38 AM EDT [facility] Urine Type NotGiven 11/23/2024 5:14 AM EDT [facility] Hyaline Casts, UA 0-2 0 - 2 /LPF 11/23/2024 5:51 AM EDT [facility] Mucus, UA 2+(A) None Seen /LPF 11/23/2024 5:51 AM EDT [facility] WBC, UA 10-20(A) 0 - 5 /HPF 11/23/2024 5:51 AM EDT [facility] RBC, UA 0-2 0 - 4 /HPF 11/23/2024 5:51 AM EDT [facility] Epithelial Cells, UA 0-1 0 - 5 /HPF 11/23/2024 5:51 AM EDT [facility] Bacteria, UA 1+(A) None Seen /HPF 11/23/2024 5:51 AM EDT [facility] Crystals, UA 1+ Ca. Oxalate(A) None Seen /HPF 11/23/2024 5:51 AM EDT [facility] Urine URINE SPECIMEN / Unknown 11/23/2024 5:00 AM EDT 11/23/2024 5:15 AM EDT us Jemima Coffey MD URINE ORDERABLES Final Res ult [facility] [address] [place] [address] * Lipase (11/23/2024 5:00 AM EDT) Lipase 43.0 13.0 - 60.0 U/L 11/23/2024 5:39 AM EDT [facility] Blood BLOOD SPECIMEN / Unknown 11/23/2024 5:00 AM EDT 11/23/2024 5:11 AM EDT Jemima Coffey MD CHEMISTRY ORDERABLES Final Result [facility] [address] [place] [address], [facility] [phone] * (ABNORMAL) Comprehensive Metabolic Panel w/ Reflex to MG (11/23/2024 5:00 AM EDT) Sodium 140 136 - 145 mmol/L 11/23/2024 5:28 AM EDT [facility] Potassium reflex Magnesium 3.7 3.5 - 5.1 mmol/L 11/23/2024 5:28 AM T [facility] Comment: Specimen hemolysis has exceeded the interference as defined by Yinka. Value may be falsely increased. Suggest recollection if clinically indicated. Chloride 100 99 - 110 mmol/L 11/23/2024 5:28 AM T [facility] CO2 23 21 - 32 mmol/L 11/23/2024 5:38 AM [facility] Anion Gap 17(H) 3 - 16 11/23/2024 5:38 AM T [facility] Glucose 111(H) 70 - 99 mg/dL 11/23/2024 5:39 AM T [facility] BUN 13 7 - 20 mg/dL 11/23/2024 5:39 AM [facility] Creatinine 0.7 0.6 - 1.1 mg/dL 11/23/2024 5:39 AM [facility] Est, Glom Filt Rate >90 >60 11/23/2024 5:39 AM T [facility] Comment: Pediatric calculator link https://www.kidney.org/professionals/kdoqi/gfr_calculatorped Effective Feb 19, 2022 These results are not intended for use in patients <18 years of age. eGFR results are calculated without a race factor using the 2020 CKD-EPI equation. Careful clinical correlation is recommended, particularly when comparing to results calculated using previous equations. The CKD-EPI equation is less accurate in patients with extremes of muscle mass, extra-renal metabolism of creatinine, excessive creatinine ingestion, or following therapy that affects renal tubular secretion. Calcium 9.8 8.3 - 10.6 mg/dL 11/23/2024 5:38 AM EDT [facility] Total Protein 7.0 6.4 - 8.2 g/dL 11/23/2024 5:39 AM EDT [facility] Albumin 4.3 3.4 - 5.0 g/dL 11/23/2024 5:38 AM [facility] Albumin/Globulin Ratio 1.6 1.1 - 2.2 11/23/2024 5:39 AM EDT [facility] Total Bilirubin 0.3 0.0 - 1.0 mg/dL 11/23/2024 5:38 AM EDT [facility] Alkaline Phosphatase 79 40 - 129 U/L 11/23/2024 5:38 AM T [facility] ALT 13 10 - 40 U/L 11/23/2024 5:38 AM T [facility] AST 28 15 - 37 U/L 11/23/2024 5:38 AM EDT [facility] Comment: Specimen hemolysis has exceeded the interference as defined by Yinka. Value may be falsely increased. Suggest recollection if clinically indicated. Blood BLOOD SPECIMEN / Unknown 11/23/2024 5:00 AM EDT 11/23/2024 5:11 AM EDT us Jemima Coffey MD CHEMISTRY ORDERABLES Final Result [facility] [address] [place] [address], [facility] [phone] * (ABNORMAL) CBC with Auto Differential (11/23/2024 5:00 AM EDT) WBC 17.0(H) 4.0 - 11.0 K/uL 11/23/2024 5:13 AM [facility] RBC 5.00 4.00 - 5.20 M/uL 11/23/2024 5:13 AM [facility] Hemoglobin 14.8 12.0 - 16.0 g/dL 11/23/2024 5:13 AM [facility] Hematocrit 43.3 36.0 - 48.0 % 11/23/2024 5:13 AM [facility] MCV 86.6 80.0 - 100.0 fL 11/23/2024 5:13 AM [facility] MCH 29.7 26.0 - 34.0 pg 11/23/2024 5:13 AM [facility] MCHC 34.3 31.0 - 36.0 g/dL 11/23/2024 5:13 AM [facility] RDW 12.4 12.4 - 15.4 % 11/23/2024 5:13 AM [facility] Platelets 213 135 - 450 K/uL 11/23/2024 5:13 AM [facility] MPV 8.5 5.0 - 10.5 fL 11/23/2024 5:13 AM [facility] PLATELET SLIDE REVIEW Adequate 11/23/2024 7:53 AM [facility] SLIDE REVIEW see below 11/23/2024 7:53 AM [facility] Comment:Slide review agrees with reported results Neutrophils % 84.0 % 11/23/2024 7:53 AM [facility] Lymphocytes % 9.0 % 11/23/2024 7:53 AM [facility] Monocytes % 3.0 % 11/23/2024 7:53 AM [facility] Eosinophils % 0.0 % 11/23/2024 7:53 AM EDT [facility] Basophils % 0.0 % 11/23/2024 7:53 AM EDT [facility] Neutrophils Absolute 15.0(H) 1.7 - 7.7 K/uL 11/23/2024 7:53 AM EDT [facility] Lymphocytes Absolute 1.5 1.0 - 5.1 K/uL 11/23/2024 7:53 AM EDT [facility] Monocytes Absolute 0.5 0.0 - 1.3 K/uL 11/23/2024 7:53 AM EDT [facility] Eosinophils Absolute 0.0 0.0 - 0.6 K/uL 11/23/2024 7:53 AM EDT [facility] Basophils Absolute 0.0 0.0 - 0.2 K/uL 11/23/2024 7:53 AM EDT [facility] Bands Relative 4 0 - 7 % 11/23/2024 7:53 AM EDT [facility] RBC Morphology Normal 11/23/2024 7:53 AM EDT [facility] Blood BLOOD SPECIMEN / Unknown 11/23/2024 5:00 AM EDT 11/23/2024 5:11 AM EDT Jemima Coffey MD HEMATOLOGY ORDERABLES Sandi preston Result [facility] [address] [place] [address] documented in this encounter Visit Diagnoses Diagnosis Enterocolitis- Primary Other and unspecified noninfectious gastroenteritis and colitis Nausea vomiting and diarrhea Nausea with vomiting Pelvic cyst in female Lactic acidosis Acidosis documented in this encounter Administered Medications Inactive Administered Medications - up to 3 most recent administrations Medication Order MAR Action Action Date Dose Rate Site dicyclomine (BENTYL) injection 20 mg 20 mg, IntraMUSCular, ONCE, 1 dose, On Sat11/23/24 at 0530 Given 11/23/2024 5:49 AM EDT 20 mg Ventrogluteal Left iopamidol (ISOVUE-370) 76 % injection 75 mL 75 mL, IntraVENous, IMG ONCE PRN, 1 dose, Starting on Sat11/23/24 at 0545, Until Sat11/23/24 at 0553, Other Given 11/23/2024 5:53 AM EDT 75 mLs lactated ringers bolus 1,000 mL 1,000 mL, IntraVENous, at 983.6 mL/hr, Administer over 61 Minutes, ONCE, On Sat11/23/24 at 0530, For 1 dose New Bag 11/23/2024 5:47 AM EDT 1,000 mLs 983.6 mL/hr lactated ringers bolus 800 mL 800 mL, IntraVENous, at 786.9 mL/hr, Administer over 61 Minutes, ONCE, On Sat11/23/24 at 0600, For 1 dose New Bag 11/23/2024 6:33 AM EDT 800 mLs 786.9 mL/hr ondansetron (ZOFRAN) injection 4 mg 4 mg, IntraVENous, ONCE, 1 dose, On Sat11/23/24 at 0530 Given 11/23/2024 5:48 AM EDT 4 mg sodium chloride 0.9 % bolus 1,000 mL 1,000 mL (16.9 mL/kg), IntraVENous, at 1,000 mL/hr, Administer over 1 Hours, ONCE, On Sat11/23/24 at 0830, For 1 dose New Bag 11/23/2024 8:43 AM EDT 1,000 mLs 1000 mL/hr documented in this encounter Active and Recently Administered Medications Times are shown in EDT. Scheduled Medication Order 11/21/2024 11/22/2024 11/23/2024 dicyclomine (BENTYL) injection 20 mg (COMPLETED) 20 mg, IntraMUSCular, ONCE, 1 dose, On Sat11/23/24 at 0530 0549 (Given - Provid er: Selene Chavez RN) lactated ringers bolus 1,000 mL (COMPLETED) 1,000 mL, IntraVENous, at 983.6 mL/hr, Administer over 61 Minutes, ONCE, On Sat11/23/24 at 0530, For 1 dose 0547 (New Bag - Prov ider: Selene Chavez RN)0700 (Stopped - Provider: Davis Davis RN) lactated ringers bolus 800 mL (COMPLETED) 800 mL, IntraVENous, at 786.9 mL/hr, Administer over 61 Minutes, ONCE, On Sat11/23/24 at 0600, For 1 dose 0633 (New Bag - Prov ider: Federica Chauhan RN)0735 (Stopped - Provider: Eric Levy, RN) ondansetron (ZOFRAN) injection 4 mg (COMPLETED) 4 mg, IntraVENous, ONCE, 1 dose, On Sat11/23/24 at 0530 0548 (Given - Provid er: Selene Chavez RN) sodium chloride 0.9 % bolus 1,000 mL (COMPLETED) 1,000 mL (16.9 mL/kg), IntraVENous, at 1,000 mL/hr, Administer over 1 Hours, ONCE, On Sat11/23/24 at 0830, For 1 dose 0843 (New Bag - Prov ider: Eric Levy, LAVONNE)1016 (Stopped - Provider: Davis Davis RN) PRN Medication Order 11/21/2024 11/22/2024 11/23/2024 iopamidol (ISOVUE-370) 76 % injection 75 mL (COMPLETED) 75 mL, IntraVENous, IMG ONCE PRN, 1 dose, Starting on Sat11/23/24 at 0545, Until Sat11/23/24 at 0553, Other 0553 (Given - Provid er: Rosalie Samano) documented in this encounter Additional Health Concerns Infection Onset Date Last Indicated Resolved Time C-diff Rule Out 11/23/2024 11/23/2024 11/23/2024 8 :20 AM EDT documented as of this encounter Care Teams Bobbin Coil Winder Relationship Specialty Start Date End Date Taco Miranda MD [address] [place] [address] [place] [address] PCP - General Pediatrics 08/02/21 documented as of this encounter
--- OUTSIDE RECORDS SUMMARY | 2024-12-24 10:16 | XMS_ITS | Referral Summary ---
Author Organization [facility] Address [facility] [place] [address] Care Team Providers Care Spring Coiler Hand Name Role Phone Bessie Martini Primary Care Provider [phone] Social History Tobacco Use Types Packs/Day Years [...] Relevant to Health Maintenance Insurance Care Teams Spring Coiler Hand Relationship Specialty Start Date End Date Bessie Martini DO PCP - General Family Medicine 01/19/15
--- OUTSIDE RECORDS SUMMARY | 2024-12-24 10:16 | XMS_ITS | Clinical Summary ---
Author Organization [facility] Address [facility] [address] Care Team Providers Care Stringed Instrument Repairer Name Role Phone Bessie Martini Primary Care Provider [phone] Social History Tobacco Use Types Packs/Day Years [...] Most Recently Relevant to Health Maintenance Insurance [facility] ALL OTHERS NOT MEDICARE Care Teams Stringed Instrument Repairer Relationship Specialty Start Date End Date Bessie Martini DO PCP - General Family Medicine 01/19/15
--- OUTSIDE RECORDS SUMMARY | 2024-12-24 10:16 | XMS_ITS | Encounter Summary ---
Author Organization [facility] Address [address] [facility], [address] [place] [address] Care Team Providers Care Crop And Soil Scientist Name Role Phone Taco Miranda MD Primary Care Provider [phone] Encounter Details Date Type Department Care Team [...] documented as of this encounter Care Teams Crop And Soil Scientist Relationship Specialty Start Date End Date Taco Miranda MD [address] [place] [address] PCP - General Pediatrics 08/02/21 documented as of this encounter
--- OUTSIDE RECORDS SUMMARY | 2024-12-24 10:16 | XMS_ITS | Clinical Summary ---
Author Organization [facility] Address [address] [place] [address] Care Team Providers Care Radio Mechanic Helper Name Role Phone Roxanne Michel MD Primary Care Provider [phone] Source Comments This information has been disclosed [...] therelease of HIV test results or diagnoses. [id number] Allergies No known active allergies Medications [...] of Treatment Not on file Insurance #[address] [place] [address] [facility] Care Teams Radio Mechanic Helper Relationship Specialty Start Date End Date Roxanne Michel MD [address] [address] PCP - General Family Medicine 03/06/18
[2024-12-24 10:18] LABS: Microscopic, Urine URINE MICROSCOPIC (MICROSCOPIC)
--- OUTSIDE RECORDS SUMMARY | 2024-12-24 10:18 | XMS_ITS | Encounter Summary ---
Author Organization [facility] Address [address] [place] [address] Care Team Providers Care Certified Corporate Travel Executive Name Role Phone Roxanne Funez MD Primary Care Provider [phone] Roxanne Michel MD Primary Care Provider [phone] Source Comments This information has been disclosed [...] release of HIV test results or diagnoses. [id number] Reason for Referral * Imaging/Cardiovascular Scan (Routine) - Closed Specialty Diagnoses / Procedures Referred By Contac t Referred To Contact Radiology Diagnoses Other chest pain ECG abnormal Procedures NM Myocardial perf stress and rest SPECT Rc Leavitt MD Phone: tel: fax: Referral ID Status Reason Start Date Expiration Date Visits Re quested Visits Authorized [id number] Closed 02/26/2018 03/26/2018 2 2 Encounter Details Date Type Department Care Team (Late st Contact Info) Description 02/21/2018 Orders Only [facility] [address] [place] [phone] Rc Leavitt MD [address] [place] [address] Other chest pain (Primary Dx); ECG abnormal [...] the treadmill under the supervision of the training and development coordinator. > 85% target heart rate achieved and [...] on the treadmill underthe supervision of the training and development coordinator. > 85% target heart rate achieved andexercise [...] (EKG) documented in this encounter Care Teams Certified Corporate Travel Executive Relationship Specialty Start Date End Date Roxanne Funez MD [address] [place] [address] PCP - General Family Medicine 03/28/17 03/05/18 Roxanne Michel MD [address] [address] PCP - General Family Medicine 03/06/18 documented as of this encounter
--- OUTSIDE RECORDS SUMMARY | 2024-12-24 10:18 | XMS_ITS | Encounter Summary ---
Author Organization [facility] Address [address] [place] [address] Care Team Providers Care Foster Winder Name Role Phone Roxanne Michel MD Primary Care Provider [phone] Source Comments This information has been disclosed [...] release of HIV test results or diagnoses. [id number] Reason for Referral * Imaging/Cardiovascular Scan (Routine) - Closed Specialty Diagnoses / Procedures Referred By Contac t Referred To Contact Cardiology Diagnoses SOB (shortness of breath) Palpitations Other chest pain Abnormal ECG Procedures Echo 2D Complete (TTE) Kaleb Leavitt MD Phone: tel: fax: Referral ID Status Reason Start Date Expiration Date Visits Re quested Visits Authorized [id number] Closed 03/07/2018 04/05/2018 1 1 Encounter Details Date Type Department Care Team (Late st Contact Info) Description 03/07/2018 Orders Only [facility] [address] [place] [phone] Kaleb Leavitt MD [address] [place] [address] SOB (shortness of breath) (Primary [...] EDT Narrative 03/10/2018 5:23 PM EDT * [facility]* [address] [place] [address] Transthoracic Echocardiography Patient: Sandee Flowers MR #: [id number] Account: Study Date: 03/10/2018 Gender: F Age: 42 : 1975 Room: [facility] ATTENDING Kaleb Leavitt MD ORDERING Kaleb Leavitt MD REFERRING Kaleb Leavitt MD PERFORMING [facility] PROCESS CONTROL TECH Selin Whitaker RT, RDMS, RDCS Procedure:ECHO 2D Order:ECHO 2D Accession COMPLETE (TTE) COMPLETE (TTE) Number:[id number] Indications: Shortness of breath 786.05. Study data: [...] Reviewed and confirmed by Kaleb Leavitt MD [id number]:22:55 Procedure Note Kaleb Leavitt MD - 03/10/2018 * [facility]* [address] [place] [address] Transthoracic Echocardiography Patient: Sandee Flowers MR #: [id number] Account: Study Date: 03/10/2018 Gender: F Age: 42 : 1975 Room: [facility] ATTENDING Kaleb Leavitt MD ORDERING Kaleb Leavitt MD REFERRING Kaleb Leavitt MD PERFORMING [facility], [facility] PROCESS CONTROL TECH Selin Whitaker RT, RDMS, RDCS Procedure:ECHO 2D Order:ECHO 2D Accession COMPLETE (TTE) COMPLETE (TTE) Number:[id number] Indications: Shortness of breath 786.05. Study data: [...] Reviewed and confirmed by Kaleb Leavitt MD [id number]:22:55 us Kaleb Leavitt MD CV ECHO ORDERABLES Final Resul t documented in this encounter Visit Diagnoses Diagnosis SOB (shortness of breath)- Primary Shortness of breath Palpitations Other chest pain Abnormal ECG Nonspecific abnormal electrocardiogram (ECG) (EKG) SOB (shortness of breath) Shortness of breath Palpitations Other chest pain Abnormal ECG Nonspecific abnormal electrocardiogram (ECG) (EKG) documented in this encounter Care Teams Foster Winder Relationship Specialty Start Date End Date Roxanne Michel MD [address] [address] PCP - General Family Medicine 03/06/18 documented as of this encounter
--- OUTSIDE RECORDS SUMMARY | 2024-12-24 10:18 | XMS_ITS | Encounter Summary ---
Author Organization [facility] Address [address] [place] [address] Care Team Providers Care Station Engineer Name Role Phone Roxanne Funez MD Primary Care Provider [phone] Roxanne Michel MD Primary Care Provider [phone] Source Comments This information has been disclosed [...] release of HIV test results or diagnoses. [id number] Health Encounter Details Date Type Department Care Team (Late st Contact Info) Description 04/01/2017 Orders Only [facility] Outreach Lab Test Referral Center [address] [place] [phone] Argelia Landon STD exposure (Primary Dx) Social [...] Swab Negative Negative 04/02/2017 2:22 PM EST [facility] Neisseria gonorrhoeae DNA Swab Negative Negative 04/02/2017 2:22 PM EST [facility] Comment: The presence of Chlamydia trachomatis and Neisseria gonorrhoeae DNA is detected by a U.S. Food and Drug Administration-approved amplification assay. Although performance of this test on male urethral swabs has not been approved by the FDA, the performance characterisitics for testing these samples have been determined by the [facility]. The laboratory is regulated under [...] FLUIDS AND STOOLS ORDERABLE S Final Result [facility] [address] documented in this encounter Visit Diagnoses Diagnosis STD exposure- Primary documented in this encounter Care Teams Station Engineer Relationship Specialty Start Date End Date Roxanne Funez MD [address] [place] [address] PCP - General Family Medicine 03/28/17 03/05/18 Roxanne Michel MD [address] [address] PCP - General Family Medicine 03/06/18 documented as of this encounter
--- OUTSIDE RECORDS SUMMARY | 2024-12-24 10:18 | XMS_ITS | Clinical Summary ---
Author Organization [facility] Address [address] [place] [address] Care Team Providers Care Citrix Consultant Name Role Phone Sumi Arboleda JOSÉ MIGUEL [...] INFLUENZA VACCINE 02/17/2025 Insurance HMO Care Teams Citrix Consultant Relationship Specialty Start Date End Date Sumi Arboleda APRN [address] [place] [address] PCP - General Family Medicine 02/17/24
--- OUTSIDE RECORDS SUMMARY | 2024-12-24 10:18 | XMS_ITS | Clinical Summary ---
Author Organization [facility] Address [address], [address] [place] [address] Care Team Providers Care Chili Maker Name Role Phone Taco Miranda MD Primary Care Provider [phone] Allergies Active Allergy Reactions Criticality Noted Date [...] EDT - 11/23/2024 11:45 AM EDT Emergency [facility] Emergency Department [address] [place] [address] Elan Coffey MD Price, Brandon M, MD [...] 2018 FIT/FOBT: Average risk 2018 Fecal-DNA (Cologuard): Alger ge risk 2018 Sigmoidoscopy/CT colonography 2018 Pneumococcal [...] - 2.0 mmol/L 11/23/2024 10:44 AM EDT [facility] Blood BLOOD SPECIMEN / Unknown 11/23/2024 10:27 AM EDT 11/23/2024 10:27 AM EDT us Rahul Felix MD CHEMISTRY ORDERABLES Final Re sult [facility] [address] [place] [address], [facility] [phone] * US PELVIS COMPLETE NON-OB TRANSABD/TRANSVAG W [...] free fluid. Hysterectomy. us Rahul Felix MD [facility] US ORDERABLES Final Resul t * GI [...] enterocolitica DNA detected Normal Range: None detected [facility] STOOL SPECIMEN / Unknown 11/23/2024 7:20 AM EDT 11/23/2024 7:25 AM EDT [facility] - 11/24/2024 1:58 PM EDT ORDER#: [id number] ORDERED BY: ELAN COFFEY SOURCE: Stool COLLECTED: 11/23/24 07:20 ANTIBIOTICS AT JAMES.: RECEIVED : 11/23/24 07:25 Elan Coffey MD MICROBIOLOGY - GENERAL ORD ERABLES Final Result Performing Organization Address City/[facility]/ZIP Co de Phone Number [facility] [address] [place] [address], [facility] [phone] * Clostridium difficile toxin/antigen (11/23/2024 7:20 AM EDT) C.diff Toxin/Antigen Negative for Clostridium difficile antigen and toxin Normal Range: Negative [facility] Stool STOOL SPECIMEN / Unknown 11/23/2024 7:20 AM EDT 11/23/2024 7:24 AM EDT [facility] - 11/23/2024 8:20 AM EDT ORDER#: [id number] ORDERED BY: ELAN COFFEY SOURCE: Stool stool COLLECTED: 11/23/24 07:20 ANTIBIOTICS AT JAMES.: RECEIVED : 11/23/24 07:24 Collect White vial (sterile container) Elan Coffey MD MICROBIOLOGY - GENERAL ORD ERABLES Final Result [facility] [address] [place] [address], [facility] [phone] * CT ABDOMEN PELVIS W IV CONTRAST [...] Calculation (Bazett) 447 ms [facility] MUSE P [place] 72 degrees [facility] MUSE R [place] 56 degrees [facility] MUSE T [place] 46 degrees [facility] MUSE Diagnosis Normal sinus rhythmNonspecific ST abnormalityAbnormal ECGWhen compared with ECG of 02-AUG-2021 02:25,No significant change was foundConfirmed by PATRICIA VENTURA MD ([id number]) on 11/23/2024 7:56:06 AM [facility] MUSE 11/23/2024 5:00 AM EDT 11/23/2024 7:56 AM EDT us Elan Coffey MD ECG ORDERABLES Final Resu lt [facility] MUSE * (ABNORMAL) Comprehensive Metabolic Panel w/ Reflex to MG (11/23/2024 5:00 AM EDT) Sodium 140 136 - 145 mmol/L 11/23/2024 5:28 AM EDT [facility] Potassium reflex Magnesium 3.7 3.5 - 5.1 mmol/L 11/23/2024 5:28 AM EDT [facility] Comment: Specimen hemolysis has exceeded the interference as defined by Yinka. Value may be falsely increased. Suggest recollection if clinically indicated. Chloride 100 99 - 110 mmol/L 11/23/2024 5:[address] [facility] CO2 23 21 - 32 mmol/L 11/23/2024 5:[address] [facility] Anion Gap 17(H) 3 - 16 11/23/2024 5:[address] [facility] Glucose 111(H) 70 - 99 mg/dL 11/23/2024 5:[address] [facility] BUN 13 7 - 20 mg/dL 11/23/2024 5:[address] [facility] Creatinine 0.7 0.6 - 1.1 mg/dL 11/23/2024 5:[address] [facility] Est, Glom Filt Rate >90 >60 11/23/2024 5:[address] [facility] Comment: Pediatric calculator link https://www.kidney.org/professionals/kdoqi/gfr_calculatorped [...] 8.3 - 10.6 mg/dL 11/23/2024 5:[address] [facility] Total Protein 7.0 6.4 - 8.2 g/dL 11/23/2024 5:[address] [facility] Albumin 4.3 3.4 - 5.0 g/dL 11/23/2024 5:[address] [facility] Albumin/Globulin Ratio 1.6 1.1 - 2.2 11/23/2024 5:[address] [facility] Total Bilirubin 0.3 0.0 - 1.0 mg/dL 11/23/2024 5:[address] [facility] Alkaline Phosphatase 79 40 - 129 U/L 11/23/2024 5:38 AM T [facility] ALT 13 10 - 40 U/L 11/23/2024 5:38 AM EDT [facility] AST 28 15 - 37 U/L 11/23/2024 5:38 AM T [facility] Comment: Specimen hemolysis has exceeded the interference as defined by Yinka. Value may be falsely increased. Suggest recollection if clinically indicated. Blood BLOOD SPECIMEN / Unknown 11/23/2024 5:00 AM EDT 11/23/2024 5:11 AM EDT us Elan Coffey MD CHEMISTRY ORDERABLES Final Result [facility] [address] [place] [address], [facility] [phone] * (ABNORMAL) CBC with Auto Differential (11/23/2024 [...] Eosinophils % 0.0 % 11/23/2024 7:[address] [facility] Basophils % 0.0 % 11/23/2024 7:[address] [facility] Neutrophils Absolute 15.0(H) 1.7 - 7.7 K/uL 11/23/2024 7:[address] [facility] Lymphocytes Absolute 1.5 1.0 - 5.1 K/uL 11/23/2024 7:[address] [facility] Monocytes Absolute 0.5 0.0 - 1.3 K/uL 11/23/2024 7:[address] [facility] Eosinophils Absolute 0.0 0.0 - 0.6 K/uL 11/23/2024 7:[address] [facility] Basophils Absolute 0.0 0.0 - 0.2 K/uL 11/23/2024 7:[address] [facility] Bands Relative 4 0 - 7 % 11/23/2024 7:[address] [facility] RBC Morphology Normal 11/23/2024 7:[address] [facility] Blood BLOOD SPECIMEN / Unknown 11/23/2024 5:00 AM EDT 11/23/2024 5:11 AM EDT Elan Coffey MD HEMATOLOGY ORDERABLES Sandi l Result [facility] [address] [place] [address] * Troponin (11/23/2024 5:00 AM EDT) Troponin, High Sensitivity <6 0 - 14 ng/L 11/23/2024 5:37 AM EDT [facility] Comment: The high-sensitivity troponin T result should not be compared with other troponin methodologies. Blood BLOOD SPECIMEN / Unknown 11/23/2024 5:00 AM EDT 11/23/2024 5:11 AM EDT Elan Coffey MD CHEMISTRY ORDERABLES Final Result Performing Organization Address [facility] Co de Phone Number [facility] [address] [place] [address] * (ABNORMAL) Urinalysis with Microscopic (11/23/2024 5:00 AM EDT) Color, UA Yellow Straw/Yellow 11/23/2024 5:20 AM EDT [facility] Clarity, UA Clear Clear 11/23/2024 5:20 AM EDT [facility] Glucose, Ur Negative Negative mg/dL 11/23/2024 5:20 AM EDT [facility] Bilirubin, Urine SMALL(A) Negative 11/23/2024 5:20 AM EDT [facility] Ketones, Urine Negative Negative mg/dL 11/23/2024 5:20 AM EDT [facility] Specific Java, UA >=1.030 1.005 - 1.030 11/23/2024 5:20 AM EDT [facility] Blood, Urine MODERATE(A) Negative 11/23/2024 5:[address] [facility] pH, Urine 5.5 5.0 - 8.0 11/23/2024 5:[address] [facility] Protein, UA 100(A) Negative mg/dL 11/23/2024 5:[address] [facility] Urobilinogen, Urine 1.0 <2.0 E.U./dL 11/23/2024 5:[address] [facility] Nitrite, Urine Negative Negative 11/23/2024 5:[address] [facility] Leukocyte Esterase, Urine TRACE(A) Negative 11/23/2024 5:[address] [facility] Microscopic Examination YES 11/23/2024 8:[address] [facility] Urine Type NotGiven 11/23/2024 5:[address] [facility] Hyaline Casts, UA 0-2 0 - 2 /LPF 11/23/2024 5:[address] [facility] Mucus, UA 2+(A) None Seen /LPF 11/23/2024 5:[address] [facility] WBC, UA 10-20(A) 0 - 5 /HPF 11/23/2024 5:[address] [facility] RBC, UA 0-2 0 - 4 /HPF 11/23/2024 5:[address] [facility] Epithelial Cells, UA 0-1 0 - 5 /HPF 11/23/2024 5:[address] [facility] Bacteria, UA 1+(A) None Seen /HPF 11/23/2024 5:[address] [facility] Crystals, UA 1+ Ca. Oxalate(A) None Seen /HPF 11/23/2024 5:[address] [facility] Urine URINE SPECIMEN / Unknown 11/23/2024 5:00 AM EDT 11/23/2024 5:15 AM EDT Elan Coffey MD URINE ORDERABLES Final Res ult [facility] [address] [place] [address], [facility] [phone] * Culture, Urine (11/23/2024 5:00 AM EDT) Urine Culture, Routine No growth at 18 to 36 hours [facility] Urine URINE SPECIMEN / Unknown 11/23/2024 5:00 AM EDT 11/23/2024 7:44 AM EDT Narrative [facility] - 11/24/2024 7:29 AM EDT ORDER#: [id number] ORDERED BY: ELAN COFFEY SOURCE: Urine Clean Catch COLLECTED: 11/23/24 05:00 ANTIBIOTICS AT JAMES.: RECEIVED : 11/23/24 07:44 Elan Coffey MD MICROBIOLOGY - GENERAL ORD ERABLES Final Result Performing Organization Address City/[facility]/ZIP Co de Phone Number [facility] [address] [place] [address], [facility] [phone] * Lipase (11/23/2024 5:00 AM EDT) Lipase 43.0 13.0 - 60.0 U/L 11/23/2024 5:39 AM EDT [facility] Blood BLOOD SPECIMEN / Unknown 11/23/2024 5:00 AM EDT 11/23/2024 5:11 AM EDT Elan Coffey MD CHEMISTRY ORDERABLES Final Result Performing Organization Address City/[facility]/ZIP Co de Phone Number [facility] [address] [place] [address], [facility] [phone] from Last [address] [place] [id number] [place] Care Teams Chili Maker Relationship Specialty Start Date End Date Taco Miranda MD [address] [place], [place] [address] PCP - General Pediatrics 08/02/21
--- NOTE | 2024-12-24 10:30 | US_ITS ---
PROCEDURE: US TRANSVAGINAL CLINICAL INDICATION: Needs for ovarian cyst/pelvic pain COMPARISON: CT CT ABDOMEN PELVIS WO CON from 09/20/2022 FINDINGS: Transvaginal sonographic images of the pelvis were obtained. UTERUS: The uterus is surgically absent. Vaginal vault is intact. LEFT OVARY: 1.3cmx1.2cmx1.2cm with a volume of 1ml. RIGHT OVARY: 5.7 cmx 6.5cmx5.3cm with a volume of 102.2ml. The right ovary is enlarged with a simple appearing cyst measuring 5.1 cm x 3.9 cm x 5.2 cm. Both ovaries are seen and appear normal. Doppler flow to both ovaries are seen. There is no fluid in the cul-de-sac. IMPRESSION: 1. The uterus is surgically absent. The vaginal vault is intact. 2. The left ovary is difficult to be seen but appears atrophic and normal. 3. The right ovary is enlarged with a simple cyst measuring 5.2 cm in size. Suggest repeat ultrasound in 3 months time or surgical removal if symptomatic. 4. No fluid in the cul-de-sac. Dictated by: Frederic Poon MD 12/24/2024 14:45 Frederic Poon MD in [place] 12/24/2024 14:45
[2024-12-24 10:32] LABS: Bilirubin,Urine Negative (Negative); Color,Urine YELLOW (Yellow); Glucose,Urine (UA) Negative (Negative); Ketones,Urine Negative (Negative); Leukocyte Esterase,Urine Negative (Negative); PH,Urine 7.5 (5.0-8.5); Protein,Urine Negative (Negative); Specific Gravity, Urine 1.015 (1.005-1.030); Urobilinogen,Urine 0.2 EU/dl (0.2)
[2024-12-24 10:55] LABS: RBC,Urine Occasional #/hpf (0-3)
[2024-12-24 10:56] LABS: Bacteria,Urine Trace /lpf; Squamous Epithelial Cell,Urine Occasional #/hpf (0-5)
== END 2024-12-24 23:59 | disposition home or self-care (01) ==
LOC: RAD 10:09
PROVIDERS: PCP Nurse Practitioner Family; Visit Provider Obstetrics & Gynecology
DX: N83.291 Other ovarian cyst, right side (principal); N83.312 Acquired atrophy of left ovary; N39.0 Urinary tract infection, site not specified; Z90.710 Acquired absence of both cervix and uterus
CPT/HCPCS: 76830; 81001; 87086

== ENCOUNTER 2025-02-09 10:44 | Outpatient (CLI) | payer OTHER, SELFPAY ==
[2025-02-09 08:51] VITALS: BMI 20.9
--- OUTSIDE RECORDS SUMMARY | 2025-02-09 10:47 | XMS_ITS | Encounter Summary ---
Author Organization [facility] Address [address] [place] [address] Care Team Providers Care Hog Trader Name Role Phone Roxanne Funez MD Primary Care Provider Roxanne Michel MD Primary Care Provider [phone] Source Comments This information has been disclosed [...] release of HIV test results or diagnoses. [id number] Reason for Referral * Imaging/Cardiovascular Scan (Routine) - Closed Specialty Diagnoses / Procedures Referred By Contac t Referred To Contact Radiology Diagnoses Other chest pain ECG abnormal Procedures NM Myocardial perf stress and rest SPECT Rc Leavitt MD Phone: tel: fax: Referral ID Status Reason Start Date Expiration Date Visits Re quested Visits Authorized [id number] Closed 02/26/2018 03/26/2018 2 2 Encounter Details Date Type Department Care Team (Late st Contact Info) Description 02/21/2018 Orders Only [facility] [address] [place] [phone] Rc Leavitt MD [address] [place] [address] Other chest pain (Primary Dx); ECG abnormal [...] the treadmill under the supervision of the pricer bagger. > 85% target heart rate achieved and [...] on the treadmill underthe supervision of the pricer bagger. > 85% target heart rate achieved andexercise [...] (EKG) documented in this encounter Care Teams Hog Trader Relationship Specialty Start Date End Date Roxanne Funez MD [address] [place] [address] PCP - General Family Medicine 03/28/17 03/05/18 Roxanne Michel MD [address] [address] PCP - General Family Medicine 03/06/18 documented as of this encounter
--- OUTSIDE RECORDS SUMMARY | 2025-02-09 10:47 | XMS_ITS | Clinical Summary ---
Author Organization [place] Address [facility] [address] Care Team Providers Care Guide Dog Trainer Name Role Phone Bessie Martini Primary Care Provider [phone] Social History Tobacco Use Types Packs/Day Years [...] Most Recently Relevant to Health Maintenance Insurance [facility] ALL OTHERS NOT MEDICARE Care Teams Guide Dog Trainer Relationship Specialty Start Date End Date Bessie Martini DO PCP - General Family Medicine 01/19/15
--- OUTSIDE RECORDS SUMMARY | 2025-02-09 10:47 | XMS_ITS | Encounter Summary ---
Author Organization [facility] Address [address] [place] [address] Care Team Providers Care Communications Tower Climber Name Role Phone Roxanne Funez MD Primary Care Provider Roxanne Michel MD Primary Care Provider [phone] Source Comments This information has been disclosed [...] release of HIV test results or diagnoses. [id number] Health Encounter Details Date Type Department Care Team (Late st Contact Info) Description 04/01/2017 Orders Only [facility] Outreach Lab Test Referral Center [address] [place] [phone] Argelia Landon STD exposure (Primary Dx) Social [...] Negative 04/02/2017 2:22 PM EST [facility] Neisseria gonorrhoeae DNA Swab Negative Negative 04/02/2017 2:22 PM EST [facility] Comment: The presence of Chlamydia trachomatis and Neisseria gonorrhoeae DNA is detected by a U.S. Food and Drug Administration-approved amplification assay. Although performance of this test on male urethral swabs has not been approved by the FDA, the performance characterisitics for testing these samples have been determined by the [facility]. The laboratory is regulated under the [...] STOOLS ORDERABLE S Final Result [facility] [address] documented in this encounter Visit Diagnoses Diagnosis STD exposure- Primary documented in this encounter Care Teams Communications Tower Climber Relationship Specialty Start Date End Date Roxanne Funez MD [address] [place] [address] PCP - General Family Medicine 03/28/17 03/05/18 Roxanne Michel MD [address] [address] PCP - General Family Medicine 03/06/18 documented as of this encounter
--- OUTSIDE RECORDS SUMMARY | 2025-02-09 10:47 | XMS_ITS | Referral Summary ---
Author Organization [facility] Address [facility] [place] [address] Care Team Providers Care Ruling Technician Name Role Phone Bessie Martini Primary Care Provider [phone] Social History Tobacco Use Types Packs/Day Years [...] Relevant to Health Maintenance Insurance Care Teams Ruling Technician Relationship Specialty Start Date End Date Bessie Martini DO PCP - General Family Medicine 01/19/15
--- OUTSIDE RECORDS SUMMARY | 2025-02-09 10:47 | XMS_ITS | Clinical Summary ---
Author Organization [facility] Address [address], [address] [place] [address] Care Team Providers Care Warehouse Order Puller Name Role Phone Taco Miranda MD Primary Care Provider [phone] Allergies Active Allergy Reactions Criticality Noted Date [...] EDT - 11/23/2024 11:45 AM EDT Emergency [facility] Emergency Department [address] [place] [address] Elan Coffey MD Price, Brandon M, MD [...] 2018 FIT/FOBT: Average risk 2018 Fecal-DNA (Cologuard): [place] ge risk 2018 Sigmoidoscopy/CT colonography 2018 Pneumococcal 50+ years Vacci ne (1 of 1 - PCV) 10/18/2023 Shingles vaccine (1 of 2) 10/18/2023 Flu vaccine (#1) 12/18/2024 04/03/2019 COVID-19 Vaccine (1 - 2023-2 5 season) 2025 DTaP/Tdap/Td vaccine (2 - Td or Tdap) [...] - 2.0 mmol/L 11/23/2024 10:44 AM EDT [facility] Blood BLOOD SPECIMEN / Unknown 11/23/2024 10:27 AM EDT 11/23/2024 10:27 AM EDT us Rahul Felix MD CHEMISTRY ORDERABLES Final Re sult [facility] [address] [place] [address], [facility] [phone] * US PELVIS COMPLETE NON-OB TRANSABD/TRANSVAG W [...] free fluid. Hysterectomy. us Rahul Felix MD [facility] US ORDERABLES Final Resul t * GI [...] detected Normal Range: None detected [facility] STOOL SPECIMEN / Unknown 11/23/2024 7:20 AM EDT 11/23/2024 7:25 AM EDT [facility] - 11/24/2024 1:58 PM EDT ORDER#: [id number] ORDERED BY: ELAN COFFEY SOURCE: Stool COLLECTED: 11/23/24 07:20 ANTIBIOTICS AT JAMES.: RECEIVED : 11/23/24 07:25 Elan Coffey MD MICROBIOLOGY - GENERAL ORD ERABLES Final Result Performing Organization Address City/[facility]/ZIP Co de Phone Number [facility] [address] [place] [address], [facility] [phone] * Clostridium difficile toxin/antigen (11/23/2024 7:20 AM EDT) C.diff Toxin/Antigen Negative for Clostridium difficile antigen and toxin Normal Range: Negative [facility] Stool STOOL SPECIMEN / Unknown 11/23/2024 7:20 AM EDT 11/23/2024 7:24 AM EDT [facility] - 11/23/2024 8:20 AM EDT ORDER#: [id number] ORDERED BY: ELAN COFFEY SOURCE: Stool stool COLLECTED: 11/23/24 07:20 ANTIBIOTICS AT JAMES.: RECEIVED : 11/23/24 07:24 Collect White vial (sterile container) Elan Coffey MD MICROBIOLOGY - GENERAL ORD ERABLES Final Result [facility] [address] [place] [address], [facility] [phone] * CT ABDOMEN PELVIS W IV CONTRAST [...] Calculation (Bazett) 447 ms SWOH MUSE P [place] 72 degrees SWOH MUSE R [place] 56 degrees SWOH MUSE T [place] 46 degrees SWOH MUSE Diagnosis Normal sinus rhythmNonspecific ST abnormalityAbnormal ECGWhen compared with ECG of 02-AUG-2021 02:25,No significant change was foundConfirmed by PATRICIA VENTURA MD ([id number]) on 11/23/2024 7:56:06 AM SWOH MUSE 11/23/2024 5:00 AM EDT 11/23/2024 7:56 AM EDT us Elan Coffey MD ECG ORDERABLES Final Resu lt SWMS MUSE * (ABNORMAL) Comprehensive Metabolic Panel w/ Reflex to MG (11/23/2024 5:00 AM EDT) Sodium 140 136 - 145 mmol/L 11/23/2024 5:28 AM EDT [facility] Potassium reflex Magnesium 3.7 3.5 - 5.1 mmol/L 11/23/2024 5:28 AM EDT [facility] Comment: Specimen hemolysis has exceeded the interference as defined by Yinka. Value may be falsely increased. Suggest recollection if clinically indicated. Chloride 100 99 - 110 mmol/L 11/23/2024 5:[address] [facility] CO2 23 21 - 32 mmol/L 11/23/2024 5:[address] [facility] Anion Gap 17(H) 3 - 16 11/23/2024 5:[address] [facility] Glucose 111(H) 70 - 99 mg/dL 11/23/2024 5:[address] [facility] BUN 13 7 - 20 mg/dL 11/23/2024 5:[address] [facility] Creatinine 0.7 0.6 - 1.1 mg/dL 11/23/2024 5:[address] [facility] Est, Glom Filt Rate >90 >60 11/23/2024 5:[address] [facility] Comment: Pediatric calculator link https://www.kidney.org/professionals/kdoqi/gfr_calculatorped [...] 8.3 - 10.6 mg/dL 11/23/2024 5:[address] [facility] Total Protein 7.0 6.4 - 8.2 g/dL 11/23/2024 5:[address] [facility] Albumin 4.3 3.4 - 5.0 g/dL 11/23/2024 5:[address] [facility] Albumin/Globulin Ratio 1.6 1.1 - 2.2 11/23/2024 5:[address] [facility] Total Bilirubin 0.3 0.0 - 1.0 mg/dL 11/23/2024 5:[address] [facility] Alkaline Phosphatase 79 40 - 129 U/L 11/23/2024 5:38 AM T [facility] ALT 13 10 - 40 U/L 11/23/2024 5:38 AM EDT [facility] AST 28 15 - 37 U/L 11/23/2024 5:38 AM T [facility] Comment: Specimen hemolysis has exceeded the interference as defined by Yinka. Value may be falsely increased. Suggest recollection if clinically indicated. Blood BLOOD SPECIMEN / Unknown 11/23/2024 5:00 AM EDT 11/23/2024 5:11 AM EDT us Elan Coffey MD CHEMISTRY ORDERABLES Final Result [facility] [address] [place] [address], [facility] [phone] * (ABNORMAL) CBC with Auto Differential (11/23/2024 5:00 AM EDT) WBC 17.0(H) 4.0 - 11.0 K/uL 11/23/2024 5:[address] [facility] RBC 5.00 4.00 - 5.20 M/uL 11/23/2024 5:[address] [facility] Hemoglobin 14.8 12.0 - 16.0 g/dL 11/23/2024 5:[address] [facility] Hematocrit 43.3 36.0 - 48.0 % 11/23/2024 5:[address] [facility] MCV 86.6 80.0 - 100.0 fL 11/23/2024 5:[address] [facility] MCH 29.7 26.0 - 34.0 pg 11/23/2024 5:[address] [facility] MCHC 34.3 31.0 - 36.0 g/dL 11/23/2024 5:[address] [facility] RDW 12.4 12.4 - 15.4 % 11/23/2024 5:[address] [facility] Platelets 213 135 - 450 K/uL 11/23/2024 5:[address] [facility] MPV 8.5 5.0 - 10.5 fL 11/23/2024 5:[address] [facility] PLATELET SLIDE REVIEW Adequate 11/23/2024 7:[address] [facility] SLIDE REVIEW see below 11/23/2024 7:[address] [facility] Comment:Slide review agrees with reported results Neutrophils % 84.0 % 11/23/2024 7:[address] [facility] Lymphocytes % 9.0 % 11/23/2024 7:[address] [facility] Monocytes % 3.0 % 11/23/2024 7:[address] [facility] Eosinophils % 0.0 % 11/23/2024 7:[address] [facility] Basophils % 0.0 % 11/23/2024 7:[address] [facility] Neutrophils Absolute 15.0(H) 1.7 - 7.7 K/uL 11/23/2024 7:[address] [facility] Lymphocytes Absolute 1.5 1.0 - 5.1 K/uL 11/23/2024 7:[address] [facility] Monocytes Absolute 0.5 0.0 - 1.3 K/uL 11/23/2024 7:[address] [facility] Eosinophils Absolute 0.0 0.0 - 0.6 K/uL 11/23/2024 7:[address] [facility] Basophils Absolute 0.0 0.0 - 0.2 K/uL 11/23/2024 7:[address] [facility] Bands Relative 4 0 - 7 % 11/23/2024 7:[address] [facility] RBC Morphology Normal 11/23/2024 7:[address] [facility] Blood BLOOD SPECIMEN / Unknown 11/23/2024 5:00 AM EDT 11/23/2024 5:11 AM EDT Elan Coffey MD HEMATOLOGY ORDERABLES Sandi l Result [facility] [address] [place] [address] * Troponin (11/23/2024 5:00 AM EDT) Troponin, High Sensitivity <6 0 - 14 ng/L 11/23/2024 5:37 AM EDT [facility] Comment: The high-sensitivity troponin T result should not be compared with other troponin methodologies. Blood BLOOD SPECIMEN / Unknown 11/23/2024 5:00 AM EDT 11/23/2024 5:11 AM EDT Elan Coffey MD CHEMISTRY ORDERABLES Final Result Performing Organization Address [facility] Co de Phone Number [facility] [address] [place] [address] * (ABNORMAL) Urinalysis with Microscopic (11/23/2024 5:00 AM EDT) Color, UA Yellow Straw/Yellow 11/23/2024 5:20 AM EDT [facility] Clarity, UA Clear Clear 11/23/2024 5:20 AM EDT [facility] Glucose, Ur Negative Negative mg/dL 11/23/2024 5:20 AM EDT [facility] Bilirubin, Urine SMALL(A) Negative 11/23/2024 5:20 AM EDT [facility] Ketones, Urine Negative Negative mg/dL 11/23/2024 5:20 AM EDT [facility] Specific [place], UA >=1.030 1.005 - 1.030 11/23/2024 5:20 AM EDT [facility] Blood, Urine MODERATE(A) Negative 11/23/2024 5:[address] [facility] pH, Urine 5.5 5.0 - 8.0 11/23/2024 5:[address] [facility] Protein, UA 100(A) Negative mg/dL 11/23/2024 5:[address] [facility] Urobilinogen, Urine 1.0 <2.0 E.U./dL 11/23/2024 5:[address] [facility] Nitrite, Urine Negative Negative 11/23/2024 5:[address] [facility] Leukocyte Esterase, Urine TRACE(A) Negative 11/23/2024 5:[address] [facility] Microscopic Examination YES 11/23/2024 8:[address] [facility] Urine Type NotGiven 11/23/2024 5:[address] [facility] Hyaline Casts, UA 0-2 0 - 2 /LPF 11/23/2024 5:[address] [facility] Mucus, UA 2+(A) None Seen /LPF 11/23/2024 5:[address] [facility] WBC, UA 10-20(A) 0 - 5 /HPF 11/23/2024 5:[address] [facility] RBC, UA 0-2 0 - 4 /HPF 11/23/2024 5:[address] [facility] Epithelial Cells, UA 0-1 0 - 5 /HPF 11/23/2024 5:[address] [facility] Bacteria, UA 1+(A) None Seen /HPF 11/23/2024 5:[address] [facility] Crystals, UA 1+ Ca. Oxalate(A) None Seen /HPF 11/23/2024 5:[address] [facility] Urine URINE SPECIMEN / Unknown 11/23/2024 5:00 AM EDT 11/23/2024 5:15 AM EDT Elan Coffey MD URINE ORDERABLES Final Res ult [facility] [address] [place] [address], [facility] [phone] * Culture, Urine (11/23/2024 5:00 AM EDT) Urine Culture, Routine No growth at 18 to 36 hours [facility] Urine URINE SPECIMEN / Unknown 11/23/2024 5:00 AM EDT 11/23/2024 7:44 AM EDT Narrative [facility] - 11/24/2024 7:29 AM EDT ORDER#: [id number] ORDERED BY: ELAN COFFEY SOURCE: Urine Clean Catch COLLECTED: 11/23/24 05:00 ANTIBIOTICS AT JAMES.: RECEIVED : 11/23/24 07:44 Elan Coffey MD MICROBIOLOGY - GENERAL ORD ERABLES Final Result Performing Organization Address City/[facility]/ZIP Co de Phone Number [facility] [address] [place] [address], [facility] [phone] * Lipase (11/23/2024 5:00 AM EDT) Lipase 43.0 13.0 - 60.0 U/L 11/23/2024 5:39 AM EDT [facility] Blood BLOOD SPECIMEN / Unknown 11/23/2024 5:00 AM EDT 11/23/2024 5:11 AM EDT Elan Coffey MD CHEMISTRY ORDERABLES Final Result Performing Organization Address City/[facility]/ZIP Co de Phone Number [facility] [address] [place] [address], [facility] [phone] from Last [address] [place] [address] [place] Care Teams Warehouse Order Puller Relationship Specialty Start Date End Date Taco Miranda MD [address] [place], [place] [id number] PCP - General Pediatrics 08/02/21
--- OUTSIDE RECORDS SUMMARY | 2025-02-09 10:47 | XMS_ITS | Clinical Summary ---
Author Organization [facility] Address [address] [place] [address] Care Team Providers Care Global Consumer Sector Vice President Name Role Phone Sumi Arboleda JOSÉ MIGUEL [...] 10/18/2023 ZOSTER VACCINE (1 of 2) 10/18/2023 INFLUENZA VACCINE 12/18/2024 Insurance [employer] Member Subscriber Plan / Payer (Ef fective 2023-Present) Name:Sandee Flowers Relation to Subscriber:Self Name:Sandee Flowers Payer ID:[id number] (NAIC) Type:PARTICIPATING PROVIDER Address: [facility] [id number] [place] [id number] Care Teams Global Consumer Sector Vice President Relationship Specialty Start Date End Date Sumi Arboleda APRN [address] [place] [address] PCP - General Family Medicine 02/17/24
--- OUTSIDE RECORDS SUMMARY | 2025-02-09 10:47 | XMS_ITS | Encounter Summary ---
Author Organization [facility] Address [address] [place] [address] Care Team Providers Care Green Chain Operator Name Role Phone Roxanne Michel MD Primary Care Provider [phone] Source Comments This information has been disclosed [...] release of HIV test results or diagnoses. [id number] Reason for Referral * Imaging/Cardiovascular Scan (Routine) - Closed Specialty Diagnoses / Procedures Referred By Contac t Referred To Contact Cardiology Diagnoses SOB (shortness of breath) Palpitations Other chest pain Abnormal ECG Procedures Echo 2D Complete (TTE) Kaleb Leavitt MD Phone: tel: fax: Referral ID Status Reason Start Date Expiration Date Visits Re quested Visits Authorized [id number] Closed 03/07/2018 04/05/2018 1 1 Encounter Details Date Type Department Care Team (Late st Contact Info) Description 03/07/2018 Orders Only [facility] [address] [place] [id number] Kaleb Leavitt MD [address] [place] [address] SOB (shortness of breath) (Primary [...] EDT Narrative 03/10/2018 5:23 PM EDT * [place] [facility]* [address] [place] [address] Transthoracic Echocardiography Patient: Sandee Flowers MR #: [id number] Account: Study Date: 03/10/2018 Gender: F Age: 42 : 1975 Room: [facility] ATTENDING Kaleb Leavitt MD ORDERING Kaleb Leavitt MD REFERRING Kaleb Leavitt MD PERFORMING [facility] ART MUSEUM AIDE Selin Whitaker RT, RDMS, RDCS Procedure:ECHO 2D Order:ECHO 2D Accession COMPLETE (TTE) COMPLETE (TTE) Number:[id number] Indications: Shortness of breath 786.05. Study data: [...] Reviewed and confirmed by Kaleb Leavitt MD [id number] Procedure Note Kaleb Leavitt MD - 03/10/2018 * [place] [facility]* [address] [place] [address] Transthoracic Echocardiography Patient: Sandee Flowers MR #: [id number] Account: Study Date: 03/10/2018 Gender: F Age: 42 : 1975 Room: [facility] ATTENDING Kaleb Leavitt MD ORDERING Kaleb Leavitt MD REFERRING Kaleb Leavitt MD PERFORMING [facility] ART MUSEUM AIDE Selin Whitaker RT, RDMS, RDCS Procedure:ECHO 2D Order:ECHO 2D Accession COMPLETE (TTE) COMPLETE (TTE) Number:[id number] Indications: Shortness of breath 786.05. Study data: [...] Reviewed and confirmed by Kaleb Leavitt MD [id number]:55 us Kaleb Leavitt MD CV ECHO ORDERABLES Final Resul t documented in this encounter Visit Diagnoses Diagnosis SOB (shortness of breath)- Primary Shortness of breath Palpitations Other chest pain Abnormal ECG Nonspecific abnormal electrocardiogram (ECG) (EKG) SOB (shortness of breath) Shortness of breath Palpitations Other chest pain Abnormal ECG Nonspecific abnormal electrocardiogram (ECG) (EKG) documented in this encounter Care Teams Green Chain Operator Relationship Specialty Start Date End Date Roxanne Michel MD [address] [address] PCP - General Family Medicine 03/06/18 documented as of this encounter
--- OUTSIDE RECORDS SUMMARY | 2025-02-09 10:47 | XMS_ITS | Clinical Summary ---
Author Organization [facility] Address [address] [place] [address] Care Team Providers Care Damage Adjuster Name Role Phone Roxanne Michel MD Primary Care Provider [phone] Source Comments This information has been disclosed [...] therelease of HIV test results or diagnoses. [id number] Allergies No known active allergies Medications [...] of Treatment Not on file Insurance #[id number] [place] [address] [facility] Care Teams Damage Adjuster Relationship Specialty Start Date End Date Roxanne Michel MD [address] [address] PCP - General Family Medicine 03/06/18
--- NOTE | 2025-02-09 11:32 | ECG_ITS ---
APPROVED REPORT Exam: Resting ECG HR:64 bpm ECG Measurements Heart Rate 64 AXES SC 181 P 68 QRSd 82 QRS 55 QT 429 T 38 QTc 439 Conclusion SINUS RHYTHM NONSPECIFIC T-WAVE ABNORMALITY BORDERLINE ECG UNCONFIRMED REPORT Electronically signed by : Ron Hicks MD 02/09/2025 20:25:49
[2025-02-09 11:50] LABS: Hematocrit 38.2 % (37.0-47.0); Hemoglobin 13.2 g/dL (12.2-16.2); Immature Granulocytes % 0.4 %; Mean Corpuscular HGB Conc 34.6 g/dL (31.8-35.4); Mean Corpuscular Hemoglobin 30.1 pg (27.0-31.2); Mean Corpuscular Volume 87.2 fl (81-99); Nucleated Red Blood Cells % 0 %; Platelet Count 173 K/mm3 (142-424); Red Blood Count 4.38 M/mm3 (4.20-5.40); Red Cell Distribution Width-SD 38.4 fL; White Blood Count 5.6 K/mm3 (4.8-10.8)
[2025-02-09 11:58] LABS: Albumin Level 4.5 g/dl (3.5-5.0); Chloride 102 mmol/L (98-107); Potassium 4.1 mmoL/L (3.5-5.1); Sodium 140 mmol/L (136-145)
[2025-02-09 12:01] LABS: Alanine Aminotransferase 18 U/L (12-78); Albumin/Globulin Ratio 1.9 (1.1-1.8); Alkaline Phosphatase 67 U/L (38-126); Anion Gap 11.1 mEq/L (5-15); Aspartate Amino Transferase 29 U/L (14-36); Bilirubin,Total 0.6 mg/dl (0.2-1.3); Blood Urea Nitrogen 11 mg/dl (7-17); Carbon Dioxide 31 mmol/L (22.0-30.0); Creatinine Clearance Estimated 86 mL/min (50-200); Creatinine,Serum 0.70 mg/dl (0.52-1.04); Estimated Glomerular Filt Rate 88 ml/min (>60); GFR (African American) 107 ML/MIN (>60); Globulin 2.4 g/dL (1.3-3.2); Total Protein,Serum 6.9 g/dl (6.3-8.2)
[2025-02-09 12:02] LABS: Calcium 9.4 mg/dl (8.4-10.2); Glucose 92 mg/dl (74-100)
[2025-02-09 12:09] LABS: HCG Qualitative, Serum Negative (Negative)
== END 2025-02-09 23:59 | disposition home or self-care (01) ==
LOC: PREOP 10:45
PROVIDERS: PCP Nurse Practitioner Family; Visit Provider Obstetrics & Gynecology
DX: Z01.810 Encounter for preprocedural cardiovascular examination (principal); Z01.812 Encounter for preprocedural laboratory examination; R94.31 Abnormal electrocardiogram [ECG] [EKG]
CPT/HCPCS: 80053; 84703; 85025; 93005

== ENCOUNTER 2025-02-16 09:27 | Day surgery (SDC) | payer OTHER, SELFPAY ==
[2025-02-09 12:56] VITALS: BMI 20.9
[2025-02-16] VITALS (10 sets, daily range): BP systolic 119–154; BP diastolic 80–93; PULSE 68–97; RESP 12–18; TEMP 36.3–43; O2SAT 98–100; BMI 20.9
[2025-02-16] MEDS: LACTATED RINGERS 1000ML 1,000 ML 25 ML IV (10:11)
--- NOTE | 2025-02-16 10:24 | P.OP_ITS ---
Date of procedure: 02/16/25 Pre-op Diagnosis:: Pre-op Diagnosis:: 1. Abnormal Uterine bleeding 2. Chronic pelvic pain 3. Dyspareunia Post-op Diagnosis:: Pre-op Diagnosis:: 1. Abnormal Uterine bleeding 2. Chronic pelvic pain 3. Dyspareunia 4. 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 Laparoscopic bilateral salpingo-oophorectomy with cystectomy Surgeon:: Dorinda Granda DO SOFT METALS ENGRAVER HAND:: Raymundo Simons Anesthesia: GETA Estimated blood loss (mL): 10 Clinical Note:: Sandee Flowers is a 49-year-old who presents with an incidental finding on CT scan of ovarian cyst, transvaginal ultrasound confirmed cyst. Her Judy score to evaluate for the likeliness of ovarian malignancy was negative. She desired oophorectomy and was counseled on the risk and benefits. She has a history of a hysterectomy. Peritoneal washings will be collected at the start of the case Operative findings:: 1. On bimanual exam,no adnexal masses palpated 2. On laparoscopic exam, liver, omentum and bowel grossly normal. Immediately a dark area was noted in the cul-de-sac this was found to be the cyst. Several twist were noted on the access and the ovary was noted to be involved in the torsion with the remaining ovarian tissue noted to be very atrophied, this was on the left ovary. Right ovary was noted to be normal-appearing although small and atrophied. Images were obtained the bowel was noted to be adherent to the pelvis 3. Bilateral ureters identified with peristalsis noted laparoscopically Operative note:: Discussed risks, benefits, alternatives, expectations and possible complications of surgery. All questions addressed and answered. Patient wished to proceed with surgery. Patient was wheeled back to the operating room and placed under general anesthesia without difficulty. A sponge stick was placed in the vagina in case manipulation was required Attention was then turned to the abdomen. Skin just below the umbilicus was injected with 1% lidocaine. A 5mm infraumbilical incision was made. Hemostat was used to dissect down to the fascia, the skin was tented, and abdominal access was obtained with a direct Optiview trocar. Gas was connected and in itial pressure of 6 mmHg was noted. Pneumoperitoneum was established. An 8 mm port was placed in the left lower quadrant and a 11 mm port was placed in the right lower quadrant so that I would have access for an Endo Catch bag. Ports were placed under direct laparoscopic visualization. The suction flux tube attendant was connected to collect pelvic washings and pelvic washings were collected at the start of the case with normal saline. The ovarian cyst was elevated out of the pelvis and examined. The ureter was identified and noted to be peristalsing distal from the operative field. There were bowel adhesions obscuring the infundibulopelvic ligament and to the ovary. These were taken down sharply with cold scissors and this area was examined and noted to be hemostatic. The LigaSure was used to clamp, coagulate, and transect the infundibulopelvic ligament. The Endo Catch bag was inserted and the cyst was removed. The ovarian cyst fluid was collected and sent for cytology. The ovary and ovarian cyst wall were sent separately to pathology. The ovarian pedicle was examined and hemostasis was noted. The contralateral, right ovary was identified and noted to be small and atrophied. It was grasped and the ureter was identified and noted to be peristalsing distal from the IP. The LigaSure was used to clamp, coagulate, and serially transect until the ovary was free. Ovary required placement in an Endo Catch bag for removal from the port. Ovary was removed in its entirety and sent to pathology for further evaluation. Hemostasis was noted Pelvis was irrigated. Intraabdominal pressure was decreased to 5 mm Hg. Hemostasis was noted. RLQ and LLQ trocars were removed under direct laparoscopic visualization. Pneumoperitoneum was released into the atmosphere. Infraumbilical trocar was removed under direct laparoscopic visualization to ensure no herniation of bowel or omentum. Skin incisions were reapproximated with 4-0 Monocryl. Dermabond was applied over closed skin incisions. Condition: stable Disposition: floor Specimens:: 1. Peritoneal washings 2. Bilateral ovaries and left ovarian cyst wall 3. Cytology of ovarian cyst fluid Complications:: None
--- NOTE | 2025-02-16 10:54 | EXP.ANES.CKL ---
[facility] Disclaimer: The information contained in this section may have been updated after the patient was seen, as this information can be updated by other users. Medical History Protein in urine UTI (urinary tract infection) Abdominal pain Surgical History History of cholecystectomy History of hysterectomy Family History Grandmother Cancer Coronary artery disease Heart attack Hyperlipidemia Social History (Updated 02/16/25 @ 09:57 by Orin Diamond RN) Smoking Status: Never smoker alcohol intake: never substance use type: denies use current occupational status: employed Travel in the last 8 weeks?: Inside the [place] household members: significant other housing: house Have you lived/traveled outside US in past 30 days?: No Contact w/someone who lives/traveled outside US past 30 days?: No Exposure to someone with infectious disease in past 14 days?: No Do you have a fever (greater than 100.4 F or 38 C)?: No Have you tested positive for COVID-19?: No Exposed to someone with COVID-19 in past 14 days?: No Do you have a sore throat?: No Do you have a cough?: No Do you have any weakness?: No Are you experiencing any nausea/vomitting?: No Do you have any diarrhea?: No Are you experiencing any unusual bleeding?: No Do you have any muscle aches/pain?: No Do you have any abdominal pain?: No Are you experiencing loss of taste or smell?: No [facility] Anesthesia Checklist Patient Identification Patient Identification: Arm Band and Family Structural Data Admitted From: Home Planned Operative Procedure/s: BS AND WASHING. Consent for Planned Operative Procedure(s) Verified: Yes Verified Documents: Surgical Consent and History and Physical NPO Status Verified Time NPO: 00:00 Additional verifications Patient : No Anesthesia Reactions: No Hx Blood Transfusions: No Blood Transfusion Reaction: No Cephalosporin Allergy: No Previous Colonoscopy: Yes Airway Assessment Mallampati Score:: Class II C-Spine Mobility Assessed: Yes TMJ Mobility Assessed: Yes Dentition: Good Dentition Neurological Assessment Level of Consciousness: Awake, Alert, Appropriate and Follows Commands Hx Seizures: No Numbness or tingling in extremities: No Anesthesia Plan Anesthesia Risk discussed: Yes ASA Class: I Anesthesia Type: General
[2025-02-16] MEDS: LIDOCAINE 1% W/EPI 1:100,000 20ML VIAL 40 ML (12:43)
[2025-02-16] MEDS: SODIUM CHLORIDE IRRIG SOLUTION 3,000 ML 200 ML IR (12:44)
--- NOTE | 2025-02-16 13:45 | EXP.ANES.I ---
[facility] Anesthesia Record Part I Anesthesia Record I Intake, IV Amount: 1,300 Hydration: Adequate Estimated blood loss (mL): 10 Urine output (mL): 0 Blood Products used (#): none Blood Pressure: 140/82 SaO2: 98 Pulse Rate: 97 Airway Patency: Patent Respiratory Rate: 12 Temperature: 97.4 F Patient is:: Drowsy and Stable Stable to PACU at:: 13:40
[2025-02-17 11:00] VITALS: BP 150/93; PULSE 76; RESP 16; TEMP 36.3; O2SAT 100
--- NOTE | 2025-02-17 11:00 | P.PNANES_ITS ---
[facility] Anesthesia Record Part II Anesthesia Record Part II Discharge Time: 14:10 Destination: Surgical Day Care (OP Surgery) PACU nurse assessment reviewed?: Yes Patient Condition:: Good Anesthesia Complications:: None Swallowing reflex intact?: Yes Airway Patency: Patent Cyanosis?: No Blood Pressure: 150/93 SaO2: 100 Respiratory Rate: 16 Pulse Rate: 76 Temperature: 97.4 F Mental Status: Alert & Oriented Pain level:: 0 Nausea and/or vomitting:: None Intake, IV Amount: 0 Hydration: Adequate
== END 2025-02-16 15:22 | disposition home or self-care (01) ==
PROVIDERS: PCP Nurse Practitioner Family; Visit Provider Obstetrics & Gynecology
PROC: 0UT24ZZ Resection of Bilateral Ovaries, Percutaneous Endoscopic Approach (ICD-10-PCS; CPT 58661; principal; 2025-02-16 11:30)
DX: N83.202 Unspecified ovarian cyst, left side (principal); N83.512 Torsion of left ovary and ovarian pedicle; K66.0 Peritoneal adhesions (postprocedural) (postinfection); Z79.899 Other long term (current) drug therapy
CPT/HCPCS: 58661; 58662; J1100; J2003; J2004; J2250; J2405; J2704; J3010; J7120